=== PATIENT | female | born 1980 ===

== ENCOUNTER 2023-05-19 20:16 | Emergency (ER) | payer OTHER, SELFPAY ==
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
[2023-05-19 20:30] VITALS: BP 148/76; PULSE 110; O2SAT 99
[2023-05-19 20:32] VITALS: BP 113/84; PULSE 124; RESP 18; TEMP 37.6; O2SAT 98; BMI 31.9
--- OUTSIDE RECORDS SUMMARY | 2023-05-20 01:57 | XMS_ITS | Continuity of Care Document ---
Author Name Unknown Organization [facility] Address [address] [place] [address]- Care Team Providers Care Insurance Professional Name Role Phone Carol Martin MD Primary Care Physician Encounter [facility] Date(s): 12/19/22 - 01/18/23 [facility] [address] [place] [phone] Patient Care team information Care Team Personnel Name: Ingrid Peña MA Position: [facility] Outreach Member Role: [employer] Consulting Physician Name: Carol Martin MD Position: [facility] General Pediatrics MD Member Role: PCP Address: Address: [address] [place] [address] [place] [address]- Care Team Related Persons Name: TAMIKO JOLLEY Address: home [address] [place] [address]
--- OUTSIDE RECORDS SUMMARY | 2023-05-20 01:57 | XMS_ITS | Continuity of Care Document ---
Author Name Unknown Organization [facility] ter Address [address] [place] [id number] Care Team Providers Care Aqueduct And Reservoir Keeper Name Role Phone Not on Staff, PCP Primary Care Physician Unavail able Encounter [facility] Date(s): 12/16/22 - 12/21/[address] [address]- Encounter Diagnosis Pneumoperitoneum(Final) - 12/16/22 Acute kidney injury(Final) - 12/16/22 Elevated LFTs(Final) - 12/16/22 Leukocytosis(Final) - 12/16/22 Peritonitis(Final) - 12/16/22 Discharge Disposition: A-Transfer VNA/Home Health Attending Physician: Eyad Allen MD Admitting Physician: Eyad Allen MD Referring Physician: Not on Staff, Referring MD Allergies, Adverse Reactions, Alerts Substance Reaction Severity Status penicillin 1 rash Active 1Tolerated piptazo during admission december 2022 Immunizations Given and Recorded Vaccine Date Status Refusal Reason tetanus/diphtheria/pertussis, acel(Tdap) 04/20/10 Given Medications acetaminophen-HYDROcodone 325 mg-5 mg oral tablet 1-2 tablet, By Mouth, Every 6 hours, PRN for pain, August partial fill BS [id number], # 12 tablet, 0 Refills, Maintenance, 10/08/18 23:25:53 EDT, Tablet, Partial fill upon patient request Start Date: 10/08/18 Status: Ordered Colace sodium 100 mg oral capsule 1 capsule = 100 mg, By Mouth, 2 times a day, PRN Constipation, # 20 capsule, 0 Refills, Maintenance, Capsule Start Date: 04/18/10 Status: Ordered ibuprofen 600 mg oral tablet 1 tablet = 600 mg, By Mouth, 4 times a day, PRN Pain, # 40 tablet, 0 Refills, Maintenance, Tablet Start Date: 04/18/10 Status: Ordered oxyCODONE 5 mg oral tablet 5 mg, 1, tablet, By Mouth, Every 6 hours, PRN, # 15 tablet, Refills 0, Tot. Refills 0, Maintenance,Pain , Severe, 12/21/22 13:17:00 EDT, Route to Pharmacy Electronically, [facility], 160, cm, 12/21/22 4:05:00 EDT, Height, 100.1, kg, ... Start Date: 12/21/22 Status: Ordered oxyCODONE 5 mg oral tablet 5 mg, Tablet, By Mouth, Every 6 hours, PRN for Pain , Moderate, Routine, 12/20/22 10:01:00 EDT Start Date: 12/20/22 Stop Date: 12/22/22 Status: Discontinued pantoprazole 40 mg oral delayed release tablet = 40 mg, By Mouth, Daily, # 90 capsule, 0 Refills, Maintenance, 12/21/22 13:23:00 EDT, EC Tablet, 160, cm, 12/21/22 4:05:00 EDT, Height, 100.1, kg, 12/17/22 3:49:00 EDT, Dry Weight Start Date: 12/21/22 Status: Ordered Problem List Condition Confirmation Course Effective Dates Status H ealth Status Informant Acute pyelonephritis Confirmed Active Hydronephrosis of right kidney Confirmed Active DAYNE (acute kidney injury) Confirmed Active Obese class II Confirmed Active Calculus of right ureter Confirmed Active Results Orders for Microbiology Reports Name Date Urine Culture 12/18/22 Microbiology Reports TEST:Urine Culture STATUS:Auth (Verified) BODY SITE: SOURCE:KIDNEY COLLECTED DATE/TIME:12/18/22 12:11 PM Urine Culture SPECIMEN DESCRIPTION : KIDNEY URINE, RIGHT SPECIAL REQUESTS : NONE CULTURE : 10-50,000 COL/ML STAPHYLOCOCCUS AUREUS. This isolate was identified using Maldi-TOF system These AST results were performed on the VitCellay 2 ID and AST system REPORT STATUS : FINAL 12/20/2022 ORGANISM 10-50,000 COL/ML STAPHYLOCOCCUS AUREUS. This isolate was identified using Maldi-TOF system These AST results were performed on the Vitek 2 ID and AST system METHOD MIN. INHIB. CONC. (MCG/ML) CIPROFLOXACIN SUSCEPTIBLE LEVOFLOXACIN SUSCEPTIBLE NITROFURANTOIN SUSCEPTIBLE OXACILLIN SUSCEPTIBLE RIFAMPIN SUSCEPTIBLE RIFAMPIN RIFAMPIN SHOULD NOT BE USED ALONE FOR ANTIMICROBIAL RIFAMPIN THERAPY. TETRACYCLINE SUSCEPTIBLE TRIMETH/SULFAMETHOX SUSCEPTIBLE VANCOMYCIN SUSCEPTIBLE Radiology Reports * Exam Date Time Procedure Performing Provider Status 12/18/22 11:32 AM IR End of Case Report Au th (Verified) IR End of Case Report * Exam Date Time Procedure Performing Provider Status 12/18/22 11:32 AM IR Nephrostomy, Placement Auth (Verified) Notes: (IR Nephrostomy, Placement) Reason For Exam: RT Hydronephrosis with retained stent;Other: IR Nephrostomy, Placement Patient: ARELIS CEBALLOS Study Date: 12/18/2022 Performing: Claudia Roberts MD Referring: : 1980 Age: 42 Gender: FEMALE Pre-procedure diagnosis and Indication: 42 yo patient with nephrolithiasis and hydroureteronephrosis s/p right ureteral stent placement (01/2019) which remains insitu, large bladder calculus who was transferred from [facility] to [facility] now POD1 s/p ex-lap for repair of perforated duodenal ulcer. IR consulted for right PCN catheter placement based on Urology team recommendations. Exam: Prior to the procedure, the patient was seen and the nature of the procedure explained along with its attendant risks and benefits to the patient. Informed consent for the procedure was obtained from the patient. The patient underwent a pre-sedation assessment. On completion of this it was determined the patient is appropriate for the planned procedure. The patient arrived in IR room 2 for a right nephrostomy insertion. PROCEDURE: The patient was positioned lateral, with the right side up. (Unable to lay prone in the setting of recent abdominal surgery). The patient was secured with arm boards, safety straps. The access site was evaluated with ultrasound and images archived. The site was prepped with chloraprep and draped in the usual sterile fashion. Patient received moderate sedation administered under my direct supervision. Local anesthetic was given and the right kidney was identified using ultrasound. Access to the right kidney via a lower pole calyx was achieved using a DIANNA-NV Introducer kit access needle. Contrast was injected via the access needle, which opacified the right renal collecting system. Incidentally visualized portion of the prior right ureteral stent. An 0.018 guidewire was placed, over which the DIANNA-NV access system was advanced. The wire and inner obturators were removed and contrast was injected, which opacified the right renal collecting system. An 0.035 Amplatz guidewire was placed, the 6 Fr outer catheter was removed, the tract was dilated and an 8.5 FR PCN catheter was inserted. The pigtail was formed and contrast injected to check placement of new tube, which opacified the right renal collecting system. A specimen was obtained for labwork. The catheter was secured to the skin using 2-0 prolene suture and was connected to a drainage bag. The sterile field was maintained throughout the procedure and patient tolerated the procedure well with no complications of the procedure. estimated blood loss was minimal Specimens/samples: urine sample from the right kidney was sent Patient [facility] procedure instructions sent in envelope with the patient Impression: Ultrasound and fluoroscopically-guided placement of a new 8.5 Fr right percutaneous nephrostomy catheter. Catheter care as ordered. Return to floor and resume care as per the primary team. Fluoroscopy time and dose Total Fluoro Time: 1.5 mins Total dose 34 mGy Total DAP 305.52 - ?Gy/m2 Contrast used Contrast used: Omnipaque_300 30 ml's Local Anesthetic Lidocaine 1% 8 ml's SQ Lidocaine 1% 2 ml's SQ Moderate sedation was provided From 12:02:00 to 12:15:00 Moderate Sedation Agent Dose Route Time By Fentanyl 25 mcg IV 12:02:06 LC Versed 0.5 mg IV 12:21:46 Signed By Claudia Roberts MD On 12/18/2022 14:08:12 Claudia Roberts MD Dictated By: Claudia Roberts MD Dictated Date/Time: 12/18/22 11:32 a Reviewed By: Claudia Roberts MD Signed By: Claudia Roberts MD Signed Date/Time: 12/18/22 11:32 am Transcribed By: HOLLI Transcribed Date/Time: 12/18/22 11:32 am * Exam Date Time Procedure Performing Provider Status 12/17/22 12:44 PM Chest Portable Lobo Burdick; Auth ( Verified) Notes: (Chest Portable) Reason For Exam: Shortness of Breath RESULT: Chest Portable Chest Portable Reason: Shortness of Breath; Clinical Question(s): Pneumonia COMPARISON: None. FINDINGS: Enteric tube tip and side-port in the stomach. Patchy bilateral lower lobe airspace disease. IMPRESSION: Enteric tube tip and side-port in the stomach. Patchy bilateral lower lobe airspace disease could be secondary to atelectasis but pneumonia is notexcluded. WSN: [id number] Ordering Physician: Jennifer Shirley Dictated By: Anirudh Lee MD Dictated Date/Time: 12/17/22 12:56 p Reviewed By: Anirudh Lee MD Signed By: Anirudh Lee MD Signed Date/Time: 12/17/22 12:56 pm Transcribed By: AL Transcribed Date/Time: 12/17/22 12:55 pm Vital Signs Most recent to oldest [Reference Range]: 1 2 3 Height 160 cm (12/21/22 4:04 AM) 160 cm (12/20/22 8:18 PM) 160 cm (12/20/22 3:42 PM) Weight 94.1 kg (12/21/22 6:28 AM) 103.8 kg (12/18/22 4:00 AM) 100.6 kg (12/18/22 2:26 AM) Oxygen Saturation [94-100 %] 98 % (12/21/22 11:00 AM) 99 % (12/21/22 8:00 AM) 99 % (12/21/22 4:04 AM) Pulse Rate [55-90 bpm] 86 bpm (12/21/22 11:00 AM) 82 bpm (12/21/22 8:00 AM) 76 bpm (12/21/22 4:04 AM) Body Mass Index [18.5-24.99 kg/m2] 39.1 kg/m2 *>HHI* (12/17/22 3:42 AM) Blood Pressure [90-138/55-84 mm Hg] 109/62mm Hg (12/21/22 11:00 AM) 116/80mm Hg (12/21/22 8:00 AM) 120/70mm Hg (12/21/22 4:04 AM) Respiratory Rate [16-30 br/min] 18 br/min (12/21/22 11:02 AM) 18 br/min (12/21/22 8:00 AM) 18 br/min (12/21/22 5:24 AM) Temperature [96.8-100.4 DegF] 98.0 DegF (12/21/22 11:00 AM) 97.7 DegF (12/21/22 8:00 AM) 97.6 DegF (12/21/22 4:04 AM) Liters per Minute 3 L/min (12/18/22 8:00 PM) 3 L/min (12/18/22 6:00 PM) 3 L/min (12/18/22 2:00 PM) Mode of Delivery (Oxygen) Room air (12/21/22 11:00 AM) Room air (12/21/22 8:00 AM) Room air (12/21/22 4:04 AM) Blood pressure sites Arm, left (12/21/22 11:00 AM) Arm, left (12/21/22 8:00 AM) Arm, right (12/21/22 4:04 AM) Temperature Route Oral (12/21/22 11:00 AM) Oral (12/21/22 8:00 AM) Oral (12/21/22 4:04 AM) Dry Weight 100.1 kg (12/17/22 3:42 AM) 93 kg (12/16/22 10:26 PM) Weight Obtained Via Bed scale (12/21/22 6:28 AM) Bed scale (12/18/22 4:00 AM) Bed scale (12/18/22 2:26 AM) Dry Weight Obtained Via Bed scale (12/17/22 3:42 AM) Social History Social History Type Response Smoking Status 10 or more cigarette s (1/2 pack or more)/day in last 30 days entered on: 12/16/22 Sex Admission evaluation note * Meka GREEN, Laci Ayala: PERFORM, MODIFY Event Display: Admission Note Authored Date: [id number] Patient: ??ARELIS CEBALLOS ? Age:??42 Years?Sex:??Female?:??1980?? Chief Complaint Transfer from [place]. R sided abd pain. Expect attached. Surgical consult. History of Present Illness Arelis is a 42-year-old female who denies any significant past medical history??who presented as a transfer from [facility] with concern for a perforated duodenum.?? She describes acuteonset abdominal pain beginning the morning of??12/16.?? On presentation to the ED, labs were significant for leukocytosis to 13,800, metabolic acidosis with a bicarb of 16 and lactate of 2.6, acute kidney injury with a creatinine of 1.9 (increased from a baseline of 0.9), and elevated alkaline phosphatase at 118 and elevated lipase at 300. ??A CT scan of the abdomen and pelvis with IV contrast wasobtained which revealed pneumoperitoneum, likely secondary to a perforated duodenal ulcer, associated with abdominopelvic ascites. ??Additionally, there is moderate right hydroureteronephrosis with associated urothelial thickening and enhancement, a delayed right nephrogram, a 6.7 cm bladder calculus, and moderate right hydroureteronephrosis. ??For the findings of pneumoperitoneum, an acute care s urgery consultation was requested. ?? On evaluation, she describes 50 out of 10 abdominal pain,??but denies any other issues.. ??Want something to drink.?Denies nausea, vomiting??fever, chills, chest pain. ??She has mild shortness of breath that??she??describes as being secondary to pain. ??She was able to have a bowel movementsince the onset of??pain that was nonbloody. ??Has been able to void. Review of Systems Negative except as noted above in HPI. Physical Exam Vitals & Measurements RR:??20?? Heart rate 115 Respiratory rate 16 Blood pressure 110/75 Oxygen saturation 96% in room air Temperature 97.5 F, oral General:??Awake,??alert, in??significant pain/distress Mental Status:??Oriented to person, place and time. Normal affect. Head:??Normocephalic. Eyes:??Extraocular muscles intact. Ear, Nose and Throat:??Oropharynx clear, mucous membranes moist. Ears and nose without masses, lesions or deformities.?? Very poor dentition Neck:??Supple, Full range of motion. Respiratory:??Nonlabored breathing in room air Cardiovascular:??Tachycardic, regular rhythm Gastrointestinal:??Abdomen soft, nondistended, significantly tender to palpation in the epigastrium??with involuntary guarding,??diffuse tenderness to palpation about the remainder of the abdomen especially on the right side. Neurologic:??No focal neurological deficits. Moves all extremities spontaneously. Sensation intact bilaterally. Skin:??No rashes or lesions. No petechiae or purpura. No edema. Musculoskeletal:??No cyanosis or clubbing. No gross deformities. Normal range of motion.?? Assessment/Plan Arelis is a 42-year-old female who denies any significant past medical history??who presented as a transfer from [facility] with concern for a perforated duodenum.?This is supported by history of acute onset of epigastric??abdominal pain beginning the morning of??12/16??not associated with nausea??or vomiting.?? On presentation to the ED, labs were significant for leukocytosis to 13,800, metabolic acidosis with a bicarb of 16 and lactate of 2.6, acute kidney injury with a creatinine of 1.9 (increased from a baseline of 0.9), and elevated alkaline phosphatase at 118 and elevated lipase at 300. ??A CT scan of the abdomen and pelvis with IV contrast was obtained which revealed p neumoperitoneum, likely secondary to a perforated duodenal ulcer, associated with abdominopelvic ascites. ??Additionally, there is moderate right hydroureteronephrosis with associated urothelial thickening and enhancement, a delayed right nephrogram, a 6.7 cm bladder calculus. ??Lastly, on physicalexam she was tachycardic and peritoneal??with involuntary guarding in the epigastrium. ??For these findings, we will admit to the acute care surgery service with plans for??emergent??exploratory laparotomy. ?? Plan: Admit to [facility] We will plan to proceed to the operating room for emergent exploratory laparotomy, possible bowel resection, possible Billroth reconstruction,??possible open abdomen.?? She provided consent??at bedside for the procedure. N.p.o. IV fluids Vancomycin and Zosyn Pain and nausea control??via IV only Renal and urology consultations for??right hydroureteronephrosis, UTI,??DAYNE, delayed right nephrogram, and 6.7 cm bladder calculus, appreciate recommendations ?Seen and discussed with ??Alouidor ?Page ACS/EGS #[id number] with questions or concerns?? Problem List/Past Medical History Ongoing Acute pyelonephritis DAYNE (acute kidney injury) Calculus of right ureter Hydronephrosis of right kidney Obese class II Kidney stones s/p lithotripsy Procedure/Surgical History 3 deliveries Tonsillectomy Tubal ligation Lithotripsy for kidney stones Home Medications Acetaminophen / Hydrocodone: 1-2 tablet, By Mouth, Every 6 hours, PRN (for pain), May partial fillBS [id number] Docusate: 100 mg = 1 capsule, By Mouth, 2 times a day, PRN (Constipation) Ibuprofen: 600 mg = 1 tablet, By Mouth, 4 times a day, PRN (Pain) Oxycodone: 10 mg = 2 tablet, By Mouth, Every 6 hours, PRN (Pain) Allergies penicillin??(rash) Social History Alcohol Use: Never. Electronic Cigarette/Vaping Electronic Cigarette Use: Never. Substance Abuse Type: Marijuana. Other: once in a while. Tobacco Use: 10 or more cigarettes (1/2 pack or more)/day in last 30 days. Has roughly 5 cigarettes/day Denies alcohol use Denies illicit drug use Unemployed Lives with??a friend at home Family History No family history recorded. She does not know if??her family is a history of bleeding or clotting disorders Radiology ? Result type:?CT Abd/Pelvis W/ IV Contrast Only Result date:?December 16, 2022 16:01 EDT Result status:?Auth (Verified) Result title:?CT Abd/Pelvis W/ IV Contrast Only Performed by:?Ramin Stringer MD on December 16, 2022 17:02 EDT Verified by:?Issac Haines MD on December 16, 2022 17:07 EDT Encounter info:?[id number], [facility], Emergency, 12/16/2022 -? * Final Report * ?? Reason For Exam R sided abdominal pain;Other: ?? RESULT: CT Abd/Pelvis W/ IV Contrast Only CT Abd/Pelvis W/ IV Contrast Only? Hx of Present Illness: right flank pain; Reason: Other:; R sided abdominal pain; Clinical Question(s): Appendicitis; Order Comment: Patient unable to tolerate PO contrast. ?? TECHNIQUE: Spiral CT through the abdomen and pelvis with IV contrast formatted in 3 planes. 100 cc of Omnipaque 300 was administered intravenously. This study was performed without oral contrast. Weight-based protocol using automatic tube modulation was used to optimize exposure parameters.? CTDIvol Body: 18.25 mGy, ??DLP Body: 1035 mGy*cm. ? COMPARISON: CT 01/08/2019, 10/08/2018 ?? FINDINGS:? Bat Lathe Operator View Findings, Lines and Tubes: Right ureteral stent in place. ?? Visualized Chest: Lung bases are blurred by motion, but are grossly clear. No pleural effusion. Theheart is normal in size. No pericardial effusion. ?? Diaphragm: Normal. ?? Liver: Normal. ?? Gallbladder: No CT evidence of gallbladder pathology. ?? Bile ducts: No biliary ductal dilation. ?? Spleen: Normal. ?? Pancreas: Normal. ?? Adrenal glands: 2.5 cm right adrenal adenoma, increased from 1.8 cm in 2019. Normal left adrenal gland. ?? Kidneys and ureters:?? * ??The right kidney is mildly atrophic, with a delayed nephrogram. There is moderate hydroureteronephrosis. A right ureteral stent is in place. The distal ureter measures up to 14 mm in caliber. There is urothelial thickening and enhancement of the renal pelvis and throughout the right ureter. Moderate right perinephric and periureteral fat stranding. 1.0 cm exophytic cyst in interpolar right kidney. Punctate nonobstructing calyceal calculi at the lower pole of the right kidney measuring up to3 mm. * ??The left kidney is normal in size and enhancement. There is mild left hydroureteronephrosis. The left ureter measures up to 14 mm in caliber. Exophytic cyst at the lower pole of the left kidney measuring 4.0 cm. 3 mm nonobstructing calyceal calculus at the lower pole.? Bladder: The bladder is decompressed. There is a large bladder calculus measuring up to 6.7 cm. There is diffuse wall thickening of the bladder. ?? Reproductive organs: Unremarkable. ?? Stomach, small bowel, and large bowel: The stomach is normal. Moderate wall thickening is present at the first and second portions of the duodenum, with surrounding fat stranding and trace adjacent free air. A fluid collection is seen along the lateral aspect of the second portion of the duodenum measuring up to 2.1 cm (coronal 47). The small and large bowel are normal in caliber without evidenceof obstruction. ?? Appendix: Normal. ?? Peritoneum and retroperitoneum: Small amount of pneumoperitoneum in the upper abdomen. Foci of gas are present abutting the proximal duodenum. Small volume of abdominopelvic ascites. ?? Lymph nodes: Prominent subcentimeter portacaval lymph nodes. Periaortic lymph nodes measuring up to10 mm short axis. Portacaval lymph nodes measuring bilateral internal iliac chain lymph nodes measuring 11 mm short axis (axial 117). ?? Blood vessels: Normal. No aneurysm. No evidence of venous thrombosis. ?? Abdominal and pelvic wall: Unremarkable. ?? Bones: No acute abnormality. ?? IMPRESSION:? 1. ??Mild pneumoperitoneum, most likely secondary to perforated duodenal ulcer. 2. ??Small volume of abdominopelvic ascites. 3. ??Moderate right hydroureteronephrosis with associated urothelial thickening and enhancement, consistent with UTI. A right ureteral stent is in place. 4. ??Delayed right nephrogram, suggestive of impaired renal function. 5. ??Inflammatory changes of the bladder consistent with cystitis. 6.7 cm bladder calculus. 6. ??Moderate right hydroureteronephrosis. 7. ??Reactive portal, para-aortic and iliac adenopathy. 8. ??Right adrenal adenoma is mildly increased from prior. Lab Results Labs Last 24 Hours No qualifying data available. EKG study * Event Display: ECG 12-Lead Authored Date: Please click on pdf link to open report * Event Display: ECG 12-Lead Authored Date: Ventricular Rate: 96 BPM Atrial Rate: 96 BPM P-R Interval: 144 ms QRS Duration: 72 ms Q-T Interval: 342 ms QTC Calculation(Bazett): 432 ms P Calypso: 12 degrees R Calypso: 40 degrees T Calypso: 44 degrees Normal sinus rhythm Normal ECG No previous ECGs available Confirmed by JASS WHEELER MD ([id number]) on 12/17/2022 9:19:19 AM [place]: JASS WHEELER MD Cardiology * Event Display: Cardiac Rhythm Strips Authored Date: Hospital Progress note * Britney Jensen RN: PERFORM, SIGN, VERIFY Event Display: Progress Note Hospital Authored Date: Patient: ARELIS CEBALLOS Age: 42 years Sex: Female : 1980 Associated Diagnoses: None Author: Britney Jensen RN Findings Narrative/Incidental Pt discahrged home with family, discharge instructions given.. * Melvi Scott MD: PERFORM, SIGN, VERIFY Event Display: Progress Note Hospital Authored Date: Patient: ARELIS CEBALLOS Age: 42 years Sex: Female : 1980 Associated Diagnoses: None Author: Melvi Scott MD Subjective: No acute events overnight. Continues to pass flatus and had two bowel movements, semi-formed without blood. Continues to void without issue and right nephrostomy tube functioning appropriately. Tolerated clears without nausea or vomiting. Ambulated yesterday. Denies fever, chills, chestpain, shortness of breath, nausea, vomiting. Review of Systems Negative except as stated above. Physical Examination Temperature 97.7 (08:06) Systolic Blood Pressure 116 (08:06) Diastolic Blood Pressure 80 (08:06) Pulse 82 (08:06) SpO2 99 (08:06) Respiratory Rate 18 (08:06) General: no acute distress, awake, alert HEENT: NCAT, EOM grossly intact, trachea midline. CV: RRR Pulm: nonlabored breathing on 2LNC Abd: soft, nontender, nondistended, no rebound or guarding, midline DSD c/d/i, R PCN draining CYU Ext: moving all extremities spontaneously, no lower extremity edema Skin: no rash on limited exam, warm and well-perfused Neuro: answers questions appropriately Results Review 7 Day Results Results Laboratory : LABORATORY 12/21/2022 1:35 EDT WBC 5.4 k/mm3 RBC 3.53 m/mm3 L Hgb 9.6 Gm/dL L Hct 30.8 % L MCV 87.3 femtoliters MCH 27.2 pg MCHC 31.2 g/dL L Platelet Count 397 k/mm3 RDW-SD 57.0 femtoliters H MPV 9.1 femtoliters L Nucleated RBC (Automated) 0.0 #/100 WBC'S Abs. NRBC 0.0 k/mm3 Abs. Neut 2.4 k/mm3 Abs. Lymph 2.1 k/mm3 Abs. Bacon 0.4 k/mm3 Abs. Eo 0.4 k/mm3 Abs. Baso 0.0 k/mm3 Neut % 44.4 % Lymph % 38.7 % Bacon % 7.1 % Eos % 7.9 % H Baso % 0.6 % Imm Gran 1.3 % Abs. Imm Gran 0.1 k/mm3 Sodium 137 mmol/L Potassium 3.4 mmol/L L Chloride 109 mmol/L H Bicarbonate Level 17 mmol/L L Anion Gap 11 Glucose Level 91 mg/dL BUN 8 mg/dL Creatinine-Blood 1.5 mg/dL H Estimated GFR Creatinine 45 ML/MIN/1.73 M2 Calcium, Ionized pH Corrected 1.63 mmol/L C Phosphorus 2.0 mg/dL L Magnesium 1.9 mg/dL Impression and Plan Arelis is a 42-year-old female with PMH significant for kidney stones s/p right ureteral stent (2019) who presented as a transfer from [facility] with 1 day of epigastric abdominal pain, DAYNE, and CT A/P findings of pneumoperitoneum and abdominal free fluid likely from upper GI perforation, as well as right hydronephrosis and a large bladder stone. She was found to have involuntary guarding on exam and was taken emergently to the operating room, where she underwent exploratory laparotomy, primary repair of 1cm perforated pre-pyloric ulcer with omental buttress (Alouidor 12/17), found to have 400cc of purulence/bile in the abdomen. She then underwent right percutaneous nephrostomy placement with IR on 12/18 for hydroureteronephrosis. She is recovering well post-operatively. Garrison removed, right PCN remains in place. Voiding without issue. NGT removed POD3 and tolerated a clearliquid diet. Return of full bowel function on PDO4. Will advance to a regular diet today. PLAN Advance to regular diet Continue Vanc/Zosyn for total 4 day post-op course - ends 12/22 PO PPI Appreciate urology consultation for right hydronephrosis with retained stent - Please notify officeupon discharge as pt will require close OP FU Appreciate nephrology follow up for DAYNE & further workup F/u H pylori stool Ag F/u gastric biopsies Multimodal pain control Antiemetics as needed Home medications as indicated Daily labs; replete PRN DVT PPx: SQH OOB/ambulate Please page Emergency General Surgery with any questions or concerns [id number]. Discussed with attending physician Dr. Lynch * Dionisio GREEN, Maite: MODIFY, PERFORM Event Display: Progress Note Hospital Authored Date: [id number] Patient: ??LIN, ARELIS ? Age:??42 Years?Sex:??Female?:??1980?? Attending:??Alejandro GREEN, Eyad Admission Date: 12/16/2022 ?? Subjective Patient seen and examined, events notes. ?? I??good urine output ? Objective Vital Signs (last 24 hrs) ?Last Charted Heart Rate Peripheral?H??104bpm ??(DEC 20 20:18) Resp Rate?18 br/min ??(SEP 15 20:18) SBP?133 mm Hg ??(SEP 15 20:18) DBP?83 mm Hg ??(SEP 15 20:18) SpO2?100 % ??(SEP 15 20:18) Height?160 cm ??(SEP 15 20:18) Intake?? Output?? Oral Fluids: 250 mL (18:00) Urine Voided: 200 mL (22:00) Urine Catheter: 300 mL (10:00) R Nephrostomy: 100 mL (22:00) Stool Frequency: 0 (18:00) NG Output: 0 mL (05:00) ? Intake/Output?? 12/16 20:06 12/20 07:00 12/19 07:00 12/18 07:00 12/17 07:00 ?? 12/20 23:19 12/20 23:19 12/20 06:59 12/19 06:59 12/18 06:59 Intake ?47022.8 ?810.0 ? 2445.0 ? 3818.8 ? 3760 Output ?21115 ? 1900 ? 4285 ? 4255 ? 3260 Net Total ?-2280.2 ?-1090.0 ?-1840.0 ? -436.2 ?500 ? Physical Exam General: NAD, AAOx4 Cardio: normal S1 and S2, no MRG, RRR Resp: Clear to auscultation bilaterally Abdo:??NT, ND, BS+ve Extremities: No peripheral edema bilaterally Skin: No rashes or other abnormalities Dialysis Access: ?? BLOOD COUNT & DIFF WBC 6.6 k/mm3 ()?? 12/20/2022 05:42 RBC 3.62 m/mm3 (Low)?? 12/20/2022 05:42 Hgb 9.9 Gm/dL (Low)?? 12/20/2022 05:42 Hct 32.0 % (Low)?? 12/20/2022 05:42 MCV 88.4 femtoliters ()?? 12/20/2022 05:42 MCH 27.3 pg ()?? 12/20/2022 05:42 MCHC 30.9 g/dL (Low)?? 12/20/2022 05:42 Platelet Count 378 k/mm3 ()?? 12/20/2022 05:42 RDW-SD 58.4 femtoliters (High)?? 12/20/2022 05:42 MPV 9.0 femtoliters (Low)?? 12/20/2022 05:42 Nucleated RBC (Automated) 0.0 #/100 WBC'S ()?? 12/20/2022 05:42 Abs. NRBC 0.0 k/mm3 ()?? 12/20/2022 05:42 Abs. Neut 4.0 k/mm3 ()?? 12/20/2022 05:42 Abs. Lymph 1.7 k/mm3 ()?? 12/20/2022 05:42 Abs. Bacon 0.3 k/mm3 (Low)?? 12/20/2022 05:42 Abs. Eo 0.5 k/mm3 (High)?? 12/20/2022 05:42 Abs. Baso 0.0 k/mm3 ()?? 12/20/2022 05:42 Neut % 60.8 % ()?? 12/20/2022 05:42 Lymph % 25.1 % ()?? 12/20/2022 05:42 Bacon % 4.7 % ()?? 12/20/2022 05:42 Eos % 7.6 % (High)?? 12/20/2022 05:42 Baso % 0.6 % ()?? 12/20/2022 05:42 Imm Gran 1.2 % ()?? 12/20/2022 05:42 Abs. Imm Gran 0.1 k/mm3 ()?? 12/20/2022 05:42 ?? CHEM GENERAL Sodium 138 mmol/L ()?? 12/20/2022 05:42 Potassium 3.8 mmol/L ()?? 12/20/2022 05:42 Chloride 109 mmol/L (High)?? 12/20/2022 05:42 Bicarbonate Level 18 mmol/L (Low)?? 12/20/2022 05:42 Anion Gap 11 ()?? 12/20/2022 05:42 Glucose Level 68 mg/dL (Low)?? 12/20/2022 05:42 BUN 12 mg/dL ()?? 12/20/2022 05:42 Creatinine-Blood 1.4 mg/dL (High)?? 12/20/2022 05:42 Estimated GFR Creatinine 50 ML/MIN/1.73 M2 ()?? 12/20/2022 05:42 Calcium, Ionized pH Corrected 1.65 mmol/L (Critical)?? 12/20/2022 05:42 Phosphorus 2.2 mg/dL (Low)?? 12/20/2022 05:42 Magnesium 1.9 mg/dL ()?? 12/20/2022 05:42 ?? URINE OTHER Est Creatinine Clearance 44.17 mL/min ()?? 12/20/2022 06:29 ?? No qualifying data available ? Assessment/Plan ?Arelis is a 42-year-old woman with a medical history of nephrolithiasis and hydroureteronephrosis status post right ureteral stent placement (01/2019) who presents to [facility] as atransfer from [facility] for management of perforated duodenal ulcer. Nephrology consulted for management of acute kidney injury. ? Acute kidney injury, stage 2 Hyperkalemia, resolved Hyperchloremia NAGMA ??R hydroureteronephrosis s/p percutaneous nephrostomy ??Serum creatinine baseline appears to be 0.9 although her last reported serum creatinine was 1.4 in 2019, could have underlying CKD. Acute kidney injury likely secondary to poor oral intake, she didhave an episode of hypotension 80/54 mmHg. She was oliguric yesterday with a urine output of 200 ccsince admission, less than 24h. She does report having diarrhea for 2 days which led to GI bicarbonate loss explaining her NAGMA. Obstructive component could also contribute to her DAYNE although she has unilateral hydroureteronephrosis. Urology team was also consulted. Patient received IV contrast yesterday. FENa is 2%. She has proteinuria of 1.39 which is tubular range proteinuria in setting of DAYNE. S/p R PCN. Her NAGMA is??secondary to??decreased H+ secretion??in setting of obstruction, which should improve now that patient has a R PCN. ? Recommendations: ??-??Further management of bladder calculus per urology. ??-??Encourage oral hydration. ??- Monitor R nephrostomy output. ??- Avoid NSAIDs and IV contrast if possible. ??- Continue to monitor electrolytes and renal function. ?? Normocytic anemia Hypercalcemia Recurrent nephrolithiasis Vitamin D deficiency Patient has a normocytic anemia with hemoglobin of 10.1, MCV of 89.3, in 2019 her hemoglobin was within reference range. She has hyperglycemia with an elevated ionized calcium of 1.55, given her recurrent nephrolithiasis this raises concern for primary hyperparathyroidism, and with the anemia this could be concerning for multiple myeloma. Ionized calcium could also be elevated in setting of her acidemia. Patient has elevated levels of PTH suggesting primary hyperparathyroidism.? Recommendations: ??- Pending SPEP, UPEP and serum IF. ??- Patient will benefit from evaluation of primary hyperparathyroidism in outpatient. ?? Discussed with ??Holland ?? Thank you for allowing us to participate in care of this patient. Renal team will continue to follow. Please do not hesitate to contact with any questions/concerns should they arise. ?? Maite Nichole MD Nephrology??fellow PGY-5 ?? Available by [employer].?? Please note that this document was generated with the assistance of??DRAGON?voice recognition technology, and may contain vocabulary/syntax errors.?Please do not hesitate to contact me in case of any questions or concerns. ?? Consult note * Mary Jane ZUNIGA, Louis Garcia: PERFORM Event Display: Consultation Note Authored Date: Patient: ??ARELIS CEBALLOS ? Age:??42 Years?Sex:??Female?:??1980?? Chief Complaint/Reason for Consultation Transfer from [place]. R sided abd pain. Expect attached. Surgical consult. History of Present Illness LOS: 0 PCP: N/A Consulting Physician: Eyad Allen MD Attending Physician: Miguel Angel Joaquin MD Reason For Consult: RT hydronephrosis, Large bladder stone ?? This is a 42-year-old female transferred from [facility] for perforated duodenum. ??She has a past medical history of right nephrolithiasis with stent placement (2019??with Dr. Akhtar).??She is now POD 0 for exploratory laparotomy with primary repair of prepyloric ulcer and omental buttress buttress. ??CT scan on admission showed atrophic right kidney, with delayed nephrogram with moderate hydroureter nephrosis, a right ureteral stent placed, and a 6.7 cm bladder calculus. ??WBCs14.5, creatinine 1.7, UA positive for infection. ??She is on Zosyn and vancomycin. ??At bedside, she continues to have abdominal discomfort status post her procedure. ??She stated the last time she had a stent placed was in [address] Akhtar. ??She did not follow-up with their office, and her stent has not been exchanged or removed since 2019. Review of Systems Constitutional:??No weight loss, fever, chills, weakness or fatigue. Respiratory:??No shortness of breath, cough or sputum production. Cardiovascular:??No chest pain, chest pressure or chest discomfort. No palpitations or pedal edema. Gastrointestinal: abdominal pain.??No anorexia, nausea, vomiting or diarrhea. No blood in stool. Genitourinary:??No burning micturition, hematuria, discharge,??urinary frequency or incontinence. Neurologic:??No headache, dizziness, syncope, bladder sensation loss. Objective Measurements?? Height: 160 cm (12/17/22) Weight: 98.9 kg (12/17/22) Dry Weight: 100.1 kg (12/17/22) Body Mass Index:??39.1 kg/m2??Critical (12/17/22) ? Vital Signs?? Temperature: 97.6 DegF (12/17/22 10:00:00) Temperature Route: Oral (12/17/22 10:00:00) Pulse Rate: 90 bpm (12/17/22 10:00:00) Heart Rate Monitored:??94 bpm??High (12/17/22 04:34:00) Respiratory Rate: 20 br/min (12/17/22 10:40:00) Systolic Blood Pressure: 120 mm Hg (12/17/22 10:00:00) Diastolic Blood Pressure:??88 mm Hg??High (12/17/22 10:00:00) Blood pressure sites: Arm, right (12/17/22 10:00:00) Mean Arterial Pressure: 84 mm Hg (12/17/22 03:42:00) Pulse Pressure: 32 mm Hg (12/17/22 10:00:00) Oxygen Saturation:??93 %??Low (12/17/22 10:00:00) Liters per Minute: 2 L/min (12/17/22 03:00:00) Mode of Delivery (Oxygen): Room air (12/17/22 10:00:00) Early Warning Score: 4 (12/17/22 10:43:34) ? Pain Scores 1 - 10 Pain Scale Score: 8 (04:00) ? Intake/Output? 12/16 20:06 12/17 07:00 12/16 07:00 12/15 07:00 12/14 07:00 ?? 12/17 10:50 12/17 10:50 12/17 06:59 12/16 06:59 12/15 06:59 Intake ? 1366 ?560 ?806 ?0 ?0 Output ?930 ?710 ?220 ?0 ?0 Net Total ?436 ? -150 ?586 ?0 ?0 ? Basic ADLs Feeding Assistance: NPO (12/17/22) ? Physical Exam Constitutional: Alert, in no distress. Mental Status: Oriented to person, place and time. Respiratory: Equal and unlabored respiratory effort. Gastrointestinal: NG tube in place Genitourinary: No costovertebral angle tenderness. Assessment/Plan Acute kidney injury (N17.9):?? Hydronephrosis, right (N13.30):??This is a 42-year-old female transferred from [facility] for perforated duodenum. She has a past medical history of right nephrolithiasis with stent placement ([address] Hermilo Corrigan),??seen in consult for??right hydronephrosis, and large bladder stone.??In regards to her large bladder stone,??it is nonobstructing,??and her bladder remains decompressed. Considering her infection, she??will have to have this evaluated??and removed in the outpatient setting once her infection has been treated.??She has a retained??right ureteral stent from 2019, which is significantly overdue, as they are at most supposed to be retained for 6 months. We discussed the risks of this, being recurrent infections, pain, adhesion,??atrophy, and necrosis??of the kidney. Pt endorsed she did not follow up with [facility] due to transportation. At this point, consideringthe time of her RT stent, it would be very difficult to remove??and or exchange the RT stent.??We are recommending a RT PCN to adequate drain and preserve the RT kidney function. I have alerted Estela Ortiz PA-C at [facility] who will arrange urgent follow up. Primary team should alert their office before discharge.??Her abx should be continued, she should be made NPO for a RT PCN. ?? Recommendations: ???Right PCN. ??? N.p.o.??after midnight. ?Continue antibiotics per primary team. ?Outpatient follow-up with??urology group of [facility]. Please alert their office upon discharge. ?? This patient was seen and examined with??Dr. Joaquin.??In total, chart review, discussion with patient, physical exam,??planning took approximately 90 minutes Histories Allergies Allergies ?(Active and Proposed Allergies Only) penicillin? (Severity: Unknown severity, Onset: Unknown) ?Reactions: rash ? Past Medical History/Problem List Active Problems??(5) Acute pyelonephritis DAYNE (acute kidney injury) Calculus of right ureter Hydronephrosis of right kidney Obese class II ? Past Surgical History No surgery history documented. ? Social History Alcohol Details:??Use: Never. Details:??Use: Never. Substance Abuse Details:??Type: Marijuana. ??Other: once in a while. Tobacco Details:??Use: 10 or more cigarettes (1/2 pack or more)/day in last 30 days. Details:??Use: 10 or more cigarettes (1/2 pack or more)/day in last 30 days. Electronic Cigarette/Vaping Details:??Electronic Cigarette Use: Never. ? Family History No family history recorded. ? Medications Home Medications Acetaminophen / Hydrocodone (acetaminophen-HYDROcodone 325 mg-5 mg oral tablet)?1-2 tablet?ByMouth?Every 6 hours?as needed?for pain?May partial fillBS [id number] Docusate (Colace sodium 100 mg oral capsule)?1?capsule?100?Milligram?By Mouth?2 times a day?as needed?Constipation Ibuprofen (ibuprofen 600 mg oral tablet)?1?tab(s)?600?Milligram?By Mouth?4 times a day?as needed?Pain Oxycodone (oxycodone 5 mg oral tablet)?2?tab(s)?10?Milligram?By Mouth?Every 6 hours?as needed?Pain ? Results Recent Labs BLOOD BANK Blood Type O Positive ()?? 12/16/2022 20:09 Antibody Screen Negative ()?? 12/16/2022 20:09 ?? BLOOD COUNT & DIFF WBC 14.5 k/mm3 (High)?? 12/17/2022 06:03 RBC 3.50 m/mm3 (Low)?? 12/17/2022 06:03 Hgb 9.6 Gm/dL (Low)?? 12/17/2022 06:03 Hct 31.9 % (Low)?? 12/17/2022 06:03 MCV 91.1 femtoliters ()?? 12/17/2022 06:03 MCH 27.4 pg ()?? 12/17/2022 06:03 MCHC 30.1 g/dL (Low)?? 12/17/2022 06:03 Platelet Count 364 k/mm3 ()?? 12/17/2022 06:03 RDW-SD 61.5 femtoliters (High)?? 12/17/2022 06:03 MPV 9.6 femtoliters ()?? 12/17/2022 06:03 Nucleated RBC (Automated) 0.0 #/100 WBC'S ()?? 12/17/2022 06:03 Abs. NRBC 0.0 k/mm3 ()?? 12/17/2022 06:03 Abs. Neut 13.0 k/mm3 (High)?? 12/17/2022 06:03 Abs. Lymph 0.8 k/mm3 ()?? 12/17/2022 06:03 Abs. Bacon 0.5 k/mm3 ()?? 12/17/2022 06:03 Abs. Eo 0.0 k/mm3 ()?? 12/17/2022 06:03 Abs. Baso 0.0 k/mm3 ()?? 12/17/2022 06:03 Neut % 89.8 % (High)?? 12/17/2022 06:03 Lymph % 5.5 % (Low)?? 12/17/2022 06:03 Bacon % 3.7 % (Low)?? 12/17/2022 06:03 Eos % 0.0 % ()?? 12/17/2022 06:03 Baso % 0.3 % ()?? 12/17/2022 06:03 RBC Morphology MODERATE ()?? 12/17/2022 06:03 WBC Morphology FEW ()?? 12/17/2022 06:03 Imm Gran 0.7 % ()?? 12/17/2022 06:03 Abs. Imm Gran 0.1 k/mm3 ()?? 12/17/2022 06:03 ?? CHEM GENERAL Sodium 141 mmol/L ()?? 12/17/2022 06:03 Potassium 5.5 mmol/L (High)?? 12/17/2022 06:03 Chloride 114 mmol/L (High)?? 12/17/2022 06:03 Bicarbonate Level 20 mmol/L (Low)?? 12/17/2022 06:03 Anion Gap 7 ()?? 12/17/2022 06:03 Glucose Level 94 mg/dL ()?? 12/17/2022 06:03 BUN 24 mg/dL (High)?? 12/17/2022 06:03 Creatinine-Blood 1.7 mg/dL (High)?? 12/17/2022 06:03 Estimated GFR Creatinine 38 ML/MIN/1.73 M2 ()?? 12/17/2022 06:03 Calcium, Ionized pH Corrected 1.55 mmol/L (Critical)?? 12/17/2022 06:03 Phosphorus 3.0 mg/dL ()?? 12/17/2022 06:03 Magnesium 1.9 mg/dL ()?? 12/17/2022 06:03 Alkaline Phosphatase 118 units/L (High)?? 12/16/2022 14:54 Lipase 300 units/L (High)?? 12/16/2022 14:54 AST (SGOT) 9 units/L ()?? 12/16/2022 14:54 ALT (SGPT) 6 units/L ()?? 12/16/2022 14:54 Bilirubin, Total 0.2 mg/dL ()?? 12/16/2022 14:54 Lactate 1.2 mmol/L ()?? 12/16/2022 18:27 ?? COAG INR 1.1 ()?? 12/16/2022 20:22 Protime (PT) 11.1 seconds ()?? 12/16/2022 20:22 APTT 29.1 seconds ()?? 12/16/2022 20:22 ?? ENDOCRINE/TUMOR MARKER Beta HCG-serum, Qual INDETERMINATE ()?? 12/16/2022 14:54 Blood 3 mIU/mL ()?? 12/16/2022 14:54 ?? HEME OTHER Hold Lavender Top SPECIMEN DISCARDED AFTER 24 HOURS. ()?? 12/16/2022 14:54 Hold Blue Top SPECIMEN DISCARDED AFTER 4 HOURS. ()?? 12/16/2022 14:54 ?? MISC. CHEMISTRY Hold Green Top SPECIMEN DISCARDED AFTER 1 WEEK ()?? 12/16/2022 18:27 ?? UA/URINALYSIS Appear/Color, Urine YELLOW ()?? 12/16/2022 17:49 Clarity MARKED TURBIDITY (Abnormal)?? 12/16/2022 17:49 Specific [place], Urine 1.020 ()?? 12/16/2022 17:49 pH, Urine 8.0 ()?? 12/16/2022 17:49 Albumin, Urine 2+ (Abnormal)?? 12/16/2022 17:49 Glucose, Urine NEGATIVE ()?? 12/16/2022 17:49 Ketones, Urine NEGATIVE ()?? 12/16/2022 17:49 Bilirubin, Urine NEGATIVE ()?? 12/16/2022 17:49 Hemoglobin, Urine 3+ (Abnormal)?? 12/16/2022 17:49 Nitrite, Urine NEGATIVE ()?? 12/16/2022 17:49 Leukocyte, Urine 3+ (Abnormal)?? 12/16/2022 17:49 Urobilinogen NORMAL mg/dL ()?? 12/16/2022 17:49 WBC's, Urine >182 /HPF (High)?? 12/16/2022 17:49 RBC's, Urine 35 /HPF (High)?? 12/16/2022 17:49 Bacteria HEAVY HPF (Abnormal)?? 12/16/2022 17:49 Squamous Epith 1 /HPF ()?? 12/16/2022 17:49 Triple Phosphate MODERATE /HPF ()?? 12/16/2022 17:49 Hold Urine Culture Testing available 48 hours from time of collection. ()?? 12/16/2022 17:49 ?? URINE OTHER Est Creatinine Clearance 36.38 mL/min ()?? 12/17/2022 06:53 ?? VIROLOGY COVID-19 by RT-PCR NEGATIVE ()?? 12/16/2022 17:08 ? * Roland Schultz MD: MODIFY, PERFORM, MODIFY Event Display: Consultation Note Authored Date: Patient: ??ARELIS CEBALLOS ? Age:??42 Years?Sex:??Female?:??1980?? Chief Complaint/Reason for Consultation Transfer from [place]. R sided abd pain. Expect attached. Surgical consult. History of Present Illness Arelis is a 42-year-old woman with a medical history of nephrolithiasis and hydroureteronephrosisstatus post right ureteral stent placement (01/2019) who presents to [facility] as a transfer from [facility] for management of perforated duodenal ulcer. ??Arelis mentions that for the past 2 days he has been endorsing severe abdominal pain which prompted her to go to the emergency department. ??A CT scan of the abdomen and pelvis with IV contrast was obtained which revealed pneumoperitoneum so was decided to transfer her for further evaluation and management to [facility]. ??Upon arrival to the ED she was noted to have a leukocytosis of 13.8 with neutrophilic predominance, normocytic anemia with hemoglobin of 10.1, and had a platelet count within reference range, comprehensive metabolic panel showed a sodium of 139, potassium of 3.9, hyperchloremia of 111, hypobicarbonatemia of 16, anion gap of 12, hyperglycemia of 134, elevated BUN and serum creatinineof 24 and 1.9 respectively. ??Serum creatinine baseline appears to be 0.9. ??Additionally she had elevated alk phos at 118 and lipase of 300. ??Lactate was also elevated at 2.6. ??Urinalysis showed aurine specific gravity of 1.020, pH of 8, 2+ albumin, 3+ hemoglobin, 3+ leukocyte esterase, over 182 white blood cells and 35 red blood cells in urine, and heavy bacteria. ??Additional findings on the CT scan of abdomen with pelvis showed moderate right hydroureteronephrosis with associated urothelial thickening and enhancement consistent with UTI, right ureteral stent in place, delayed right nephrogram, inflammatory changes of the bladder consistent with cystitis and a 6.7 cm bladder calculus,reactive portal per hour taken the lack of adenopathy and right adrenal adenoma. ??She was given a 1 L bolus of LR and continues to be on maintenance IV fluids at 140 mL/h. ??Labs this morning showeda sodium of 141, hyperkalemia of 5.5, hyperchloremia of 114, improvement in hypobicarbonatemia of 20, anion gap is 7, elevated ionized calcium of 1.55, BUN of 24 and the improvement in serum creatinine down to 1.7. ??It is documented that she only made 200 cc in 24 hours, this morning she has around 350 mL in Garrison bag. ??Nephrology consulted for management of acute kidney injury. Review of Systems Constitutional:??Denies weight loss, fever, chills, weakness or fatigue. Allergy/Immune: Denies any??eczema or hives Eyes:??Denies visual disturbances. ENT:??Denies hearing loss, sneezing, congestion, runny nose or sore throat. Respiratory: Denies shortness of breath, cough or increased??sputum production. Cardiovascular:??Denies??chest pain,??palpitations, lightheadedness, syncope, or swelling of the legs. Gastrointestinal: Contributory for abdominal pain. ??Denies loss of appetite, vomiting, diarrhea orblood in the stool.?? Genitourinary:??Denies burning micturition, urinary incontinence or increased??urinary frequency. Neurologic:??Denies headache, dizziness, syncope, unilateral weakness, numbness or tingling in the extremities.??Denies change in bowel or bladder control. Musculoskeletal:??Denies muscle pain, back pain, joint pain or stiffness. Hematologic/Lymphatics:??Denies bleeding or bruising.??Denies painful lymph nodes. Skin:??Denies rash or itching. Endocrine:??Denies cold or heat intolerance.??Denies increased thirst or hunger. Psychiatric:??Denies depression or anxiety. Objective Vital Signs?? Temperature: 97.6 DegF (12/17/22 10:00:00) Temperature Route: Oral (12/17/22 10:00:00) Pulse Rate: 90 bpm (12/17/22 10:00:00) Heart Rate Monitored:??94 bpm??High (12/17/22 04:34:00) Respiratory Rate: 22 br/min (12/17/22 10:10:00) Systolic Blood Pressure: 120 mm Hg (12/17/22 10:00:00) Diastolic Blood Pressure:??88 mm Hg??High (12/17/22 10:00:00) Blood pressure sites: Arm, right (12/17/22 10:00:00) Mean Arterial Pressure: 84 mm Hg (12/17/22 03:42:00) Pulse Pressure: 32 mm Hg (12/17/22 10:00:00) Oxygen Saturation:??93 %??Low (12/17/22 10:00:00) Liters per Minute: 2 L/min (12/17/22 03:00:00) Mode of Delivery (Oxygen): Room air (12/17/22 10:00:00) Early Warning Score: 6 (12/17/22 10:12:53) ? Physical Exam Constitutional:??42-year-old female??in no acute??distress. Mental Status: Oriented to person, place and time. Head: Atraumatic/Normocephalic. Neck: Supple, Full range of motion. Respiratory: Clear to auscultation. No wheezing, rales or rhonchi. Cardiovascular: S1 S2 regular. No murmurs, rubs or gallops. Extremities: No peripheral edema. Gastrointestinal: S/p exploratory laparotomy with clean dressing in place. Genitourinary: Garrison in place with 400 mL of clear yellow urine. Neurologic: Cranial nerves II-XII grossly intact. No focal neurological deficits. Moves all extremities spontaneously. Skin: No rashes or lesions. No petechiae or purpura.?? Musculoskeletal: No cyanosis or clubbing. No gross deformities. Psychiatric: Normal mood and affect Assessment/Plan Assessment:??Arelis is a 42-year-old woman with a medical history of nephrolithiasis and hydroureteronephrosis status post right ureteral stent placement (01/2019) who presents to [facility] as a transfer from [facility] for management of perforated duodenal ulcer. Nephrology consulted for management of acute kidney injury. ?? Acute kidney injury, stage 2 Hyperkalemia Hyperchloremia NAGMA R hydroureteronephrosis secondary to nephrolithiasis Serum creatinine baseline is 0.9. Acute kidney injury likely secondary to poor oral intake, she didhave an episode of hypotension 80/54 mmHg. She was oliguric yesterday with a urine output of 200 ccsince admission, less than 24h. She does report having diarrhea for 2 days which led to GI bicarbonate loss explaining her NAGMA. Obstructive component could also contribute to her DAYNE although she has unilateral hydroureteronephrosis. Urology team was also consulted. Patient??received IV contrast yesterday. ?? Recommendations: - Urine studies. - Urology consulted by primary team with plans for R??PCN tomorrow AM. - Patient is currently strict NPO, management of hyperkalemia with insulin and dextrose. Hyperkalemia will also improve with resolution of acidemia. - Continue IVF hydration. - Avoid NSAIDs and IV contrast if possible. - Continue to monitor electrolytes and renal function. ? Normocytic anemia Hypercalcemia Recurrent nephrolithiasis Patient has a normocytic anemia with hemoglobin of 10.1, MCV of 89.3, in 2019 her hemoglobin was within reference range. She has hyperglycemia with an elevated ionized calcium of 1.55, given her recurrent nephrolithiasis this raises concern for primary hyperparathyroidism, and with the anemia this could be concerning for multiple myeloma. Ionized calcium could also be elevated in setting of her acidemia. ?? Recommendations: - Will order SPEP, UPEP and serum IF. - Work up hypercalcemia with PTH level,?? 25 and 1-25 vitamin D levels, calcium, magnesium and phosphorus. ?Patient case and plan discussed with ??Holland. ?Roland Schultz MD ?Internal Medicine PGY-2 Histories Allergies Allergies ?(Active and Proposed Allergies Only) penicillin? (Severity: Unknown severity, Onset: Unknown) ?Reactions: rash ? Past Medical History/Problem List Active Problems??(5) Acute pyelonephritis DAYNE (acute kidney injury) Calculus of right ureter Hydronephrosis of right kidney Obese class II ? Past Surgical History R ureteral??stent placement. . ? Social History Alcohol Details:??Use: Never. Details:??Use: Never. Substance Abuse Details:??Type: Marijuana. ??Other: once in a while. Tobacco Details:??Use: 10 or more cigarettes (1/2 pack or more)/day in last 30 days. Details:??Use: 10 or more cigarettes (1/2 pack or more)/day in last 30 days. Electronic Cigarette/Vaping Details:??Electronic Cigarette Use: Never. ? Family History Denies significant medical family history. Medications Home Medications Acetaminophen / Hydrocodone (acetaminophen-HYDROcodone 325 mg-5 mg oral tablet)?1-2 tablet?ByMouth?Every 6 hours?as needed?for pain?May partial fillBS [id number] Docusate (Colace sodium 100 mg oral capsule)?1?capsule?100?Milligram?By Mouth?2 times a day?as needed?Constipation Ibuprofen (ibuprofen 600 mg oral tablet)?1?tab(s)?600?Milligram?By Mouth?4 times a day?as needed?Pain Oxycodone (oxycodone 5 mg oral tablet)?2?tab(s)?10?Milligram?By Mouth?Every 6 hours?as needed?Pain ? Inpatient Medications Medications (7) Active SCHEDULED: (4) Acetaminophen 1000 mg IVPB (Acetaminophen IVPB) ??1,000 mg 100 mL, IVPB, Every 6 hours Pantoprazole 40 mg Inj (Protonix Inj) ??40 mg, IV Push Slowly, Every 12 hours Piperacillin/Tazobactam 3.375 Gm Inj (Zosyn Extended IVPB) ??3.375 Gm, IVPB, Every 8 hours Vancomycin Pharmacy To Dose ??1 each, IVPB, Daily CONTINUOUS: (1) Lactated Ringers (1000 mL) Cont IV 1,000 mL (LR 1,000 mL) ??1,000 mL, IV Infusion, 140 mL/hr PRN: (2) HYDROmorphone 0.5 mg/0.5 mL Inj Syringe (Dilaudid Inj) ??0.5 mg 0.5 mL, IV Push Slowly, Every 4 hours Ondansetron 2mg/mL Inj (2mL Vial) (Ondansetron Inj) ??4 mg, IV Push, Every 6 hours ? Results Recent Labs BLOOD BANK Blood Type O Positive ()?? 12/16/2022 20:09 Antibody Screen Negative ()?? 12/16/2022 20:09 ?? BLOOD COUNT & DIFF WBC 14.5 k/mm3 (High)?? 12/17/2022 06:03 RBC 3.50 m/mm3 (Low)?? 12/17/2022 06:03 Hgb 9.6 Gm/dL (Low)?? 12/17/2022 06:03 Hct 31.9 % (Low)?? 12/17/2022 06:03 MCV 91.1 femtoliters ()?? 12/17/2022 06:03 MCH 27.4 pg ()?? 12/17/2022 06:03 MCHC 30.1 g/dL (Low)?? 12/17/2022 06:03 Platelet Count 364 k/mm3 ()?? 12/17/2022 06:03 RDW-SD 61.5 femtoliters (High)?? 12/17/2022 06:03 MPV 9.6 femtoliters ()?? 12/17/2022 06:03 Nucleated RBC (Automated) 0.0 #/100 WBC'S ()?? 12/17/2022 06:03 Abs. NRBC 0.0 k/mm3 ()?? 12/17/2022 06:03 Abs. Neut 13.0 k/mm3 (High)?? 12/17/2022 06:03 Abs. Lymph 0.8 k/mm3 ()?? 12/17/2022 06:03 Abs. Bacon 0.5 k/mm3 ()?? 12/17/2022 06:03 Abs. Eo 0.0 k/mm3 ()?? 12/17/2022 06:03 Abs. Baso 0.0 k/mm3 ()?? 12/17/2022 06:03 Neut % 89.8 % (High)?? 12/17/2022 06:03 Lymph % 5.5 % (Low)?? 12/17/2022 06:03 Bacon % 3.7 % (Low)?? 12/17/2022 06:03 Eos % 0.0 % ()?? 12/17/2022 06:03 Baso % 0.3 % ()?? 12/17/2022 06:03 RBC Morphology MODERATE ()?? 12/17/2022 06:03 WBC Morphology FEW ()?? 12/17/2022 06:03 Imm Gran 0.7 % ()?? 12/17/2022 06:03 Abs. Imm Gran 0.1 k/mm3 ()?? 12/17/2022 06:03 ?? CHEM GENERAL Sodium 141 mmol/L ()?? 12/17/2022 06:03 Potassium 5.5 mmol/L (High)?? 12/17/2022 06:03 Chloride 114 mmol/L (High)?? 12/17/2022 06:03 Bicarbonate Level 20 mmol/L (Low)?? 12/17/2022 06:03 Anion Gap 7 ()?? 12/17/2022 06:03 Glucose Level 94 mg/dL ()?? 12/17/2022 06:03 BUN 24 mg/dL (High)?? 12/17/2022 06:03 Creatinine-Blood 1.7 mg/dL (High)?? 12/17/2022 06:03 Estimated GFR Creatinine 38 ML/MIN/1.73 M2 ()?? 12/17/2022 06:03 Calcium, Ionized pH Corrected 1.55 mmol/L (Critical)?? 12/17/2022 06:03 Phosphorus 3.0 mg/dL ()?? 12/17/2022 06:03 Magnesium 1.9 mg/dL ()?? 12/17/2022 06:03 Alkaline Phosphatase 118 units/L (High)?? 12/16/2022 14:54 Lipase 300 units/L (High)?? 12/16/2022 14:54 AST (SGOT) 9 units/L ()?? 12/16/2022 14:54 ALT (SGPT) 6 units/L ()?? 12/16/2022 14:54 Bilirubin, Total 0.2 mg/dL ()?? 12/16/2022 14:54 Lactate 1.2 mmol/L ()?? 12/16/2022 18:27 ?? COAG INR 1.1 ()?? 12/16/2022 20:22 Protime (PT) 11.1 seconds ()?? 12/16/2022 20:22 APTT 29.1 seconds ()?? 12/16/2022 20:22 ?? ENDOCRINE/TUMOR MARKER Beta HCG-serum, Qual INDETERMINATE ()?? 12/16/2022 14:54 Blood 3 mIU/mL ()?? 12/16/2022 14:54 ?? HEME OTHER Hold Lavender Top SPECIMEN DISCARDED AFTER 24 HOURS. ()?? 12/16/2022 14:54 Hold Blue Top SPECIMEN DISCARDED AFTER 4 HOURS. ()?? 12/16/2022 14:54 ?? MISC. CHEMISTRY Hold Green Top SPECIMEN DISCARDED AFTER 1 WEEK ()?? 12/16/2022 18:27 ?? UA/URINALYSIS Appear/Color, Urine YELLOW ()?? 12/16/2022 17:49 Clarity MARKED TURBIDITY (Abnormal)?? 12/16/2022 17:49 Specific [place], Urine 1.020 ()?? 12/16/2022 17:49 pH, Urine 8.0 ()?? 12/16/2022 17:49 Albumin, Urine 2+ (Abnormal)?? 12/16/2022 17:49 Glucose, Urine NEGATIVE ()?? 12/16/2022 17:49 Ketones, Urine NEGATIVE ()?? 12/16/2022 17:49 Bilirubin, Urine NEGATIVE ()?? 12/16/2022 17:49 Hemoglobin, Urine 3+ (Abnormal)?? 12/16/2022 17:49 Nitrite, Urine NEGATIVE ()?? 12/16/2022 17:49 Leukocyte, Urine 3+ (Abnormal)?? 12/16/2022 17:49 Urobilinogen NORMAL mg/dL ()?? 12/16/2022 17:49 WBC's, Urine >182 /HPF (High)?? 12/16/2022 17:49 RBC's, Urine 35 /HPF (High)?? 12/16/2022 17:49 Bacteria HEAVY HPF (Abnormal)?? 12/16/2022 17:49 Squamous Epith 1 /HPF ()?? 12/16/2022 17:49 Triple Phosphate MODERATE /HPF ()?? 12/16/2022 17:49 Hold Urine Culture Testing available 48 hours from time of collection. ()?? 12/16/2022 17:49 ?? URINE OTHER Est Creatinine Clearance 36.38 mL/min ()?? 12/17/2022 06:53 ?? VIROLOGY COVID-19 by RT-PCR NEGATIVE ()?? 12/16/2022 17:08 ? * Marv Lino MD: PERFORM Event Display: Consultation Note Authored Date: [id number] RENAL ATTENDING ADDENDUM:??I have seen and evaluated this patient. I have discussed the case and its management with the resident/team as documented in the resident/team note on the day of service. The details of the case including pertinent labs and clinical findings were confirmed by me. The planwas formulated with the student/resident/fellow/PA/BUSINESS RULES DEVELOPER as outlined below.?? Note * Britney Jensen RN: PERFORM Event Display: Discharge/Transfer Note Hospital Authored Date: [id number] Nursing Discharge Note Entered On: 12/21/2022 15:04 EDT Performed On: 12/21/2022 15:04 EDT by Britney Jensen RN Nursing Discharge Note 2 Discharge Time : 12/21/2022 15:00 EDT Discharge Level of Care at Discharge : Homehealth/VNA Discharge VNA/Hospice/Home Care(v001) : [facility] [phone] Patient Left Unit Via : Ambulatory Patient Accompanied Off Unit with : Responsible adult DC Instructions Provided & Signed by Pt : Yes Patient Understands D/C Instructions : Yes Patient Instructions Discharge Signed : Yes Did Pt have Specialty Bed or Wound Vac : No Mikey PEREZ, Britney - 12/21/2022 15:04 EDT * Jennifer Shirley NP: PERFORM, MODIFY, SIGN, VERIFY, MODIFY, SIGN Event Display: Discharge/Transfer Note Hospital Authored Date: [id number] Patient: ARELIS CEBALLOS Age: 42 years Sex: Female : 1980 Associated Diagnoses: None Author: Jennifer Shirley NP Discharge Information Admission Date: 12/16/2022 Discharge Date 12/21/2022 Principal Discharge Diagnosis Pneumoperitoneum. Medications MEDICATION LIST (Selected) Prescriptions Prescribed Colace sodium 100 mg oral capsule: 1 capsule = 100 mg, By Mouth, 2 times a day, PRN Constipation, #20 capsule, 0 Refills, Maintenance, Capsule acetaminophen-HYDROcodone 325 mg-5 mg oral tablet: 1-2 tablet, By Mouth, Every 6 hours, PRN for pain, May partial fill [id number], # 12 tablet, 0 Refills, Maintenance, 10/08/18 23:25:53 EDT, Tablet, Partial fill upon patient request ibuprofen 600 mg oral tablet: 1 tablet = 600 mg, By Mouth, 4 times a day, PRN Pain, # 40 tablet, 0 Refills, Maintenance, Tablet oxyCODONE 5 mg oral tablet: 5 mg, 1, tablet, By Mouth, Every 6 hours, PRN, # 15 tablet, Refills 0, Tot. Refills 0, Maintenance, Pain , Severe, 12/21/22 13:17:00 EDT, Route to Pharmacy Electronically,[facility], 160, cm, 12/21/22 4:05:00 EDT, Height, 100.1, kg, .... Aware of diagnosis: patient. Procedures Indication for Surgery 42F with hx of neprolithiasis s/p R ureteral stent who presented as a transfer from [place] with acute onset abdominal pain beginning the morning of 12/16. Workup demonstrated a leukocytosis of [address] scan demonstrating concern for duodenal perforation. She was taken emergently for operative intervention. Preoperative Diagnosis Perforated viscous Postoperative Diagnosis 1cm perforated prepyloric ulcer Operation Exploratory laparotomy with primary repair of prepyloric ulcer and omental buttress Surgeon(s) Eyad Allen MD (Primary Surgeon) Sound Equipment Mechanic Adryan Arriaga MD (PGY5) Anesthesia General Anesthesia Elieser Lagos MD (Att Anesthesiologist) Estimated Blood Loss 20 Urine Output 300 Findings 400cc of purulence and bile in the abdomen 1cm prepyloric ulcer with thickened, friable pylorus and duodenum Specimen(s) Gastric biopsy Complications Needle stick . Discharge condition: good Compared to admission: improved Pre-procedure diagnosis and Indication: 42 yo patient with nephrolithiasis and hydroureteronephrosis s/p right ureteral stent placement (01/2019) which remains insitu, large bladder calculus who was transferred from [facility] to [facility] now POD1 s/p ex-lap for repair of perforated duodenal ulcer. IR consulted for right PCN catheter placement based on Urology team recommendations. Exam: Prior to the procedure, the patient was seen and the nature of the procedure explained along with its attendant risks and benefits to the patient. Informed consent for the procedure was obtained from the patient. The patient underwent a pre-sedation assessment. On completion of this it was determined the patient is appropriate for the planned procedure. The patient arrived in IR room 2 for a right nephrostomy insertion. PROCEDURE: The patient was positioned lateral, with the right side up. (Unable to lay prone in the setting of recent abdominal surgery). The patient was secured with arm boards, safety straps. The access site was evaluated with ultrasound and images archived. The site was prepped with chloraprep and draped in the usual sterile fashion. Patient received moderate sedation administered under my direct supervision. Local anesthetic was given and the right kidney was identified using ultrasound. Access to the right kidney via a lower pole calyx was achieved using a DIANNA-NV Introducer kit access needle. Contrast was injected via the access needle, which opacified the right renal collecting system. Incidentally visualized portion of the prior right ureteral stent. An 0.018 guidewire was placed, over which the DIANNA-NV access system was advanced. The wire and inner obturators were removed and contrast was injected, which opacified the right renal collecting system. An 0.035 Amplatz guidewire was placed, the 6 Fr outer catheter was removed, the tract was dilated and an 8.5 FR PCN catheter was inserted. The pigtail was formed and contrast injected to check placement of new tube, which opacified the right renal collecting system. A specimen was obtained for labwork. The catheter was secured to the skin using 2-0 prolene suture and was connected to a drainage bag. The sterile field was maintained throughout the procedure and patient tolerated the procedure well with no complications of the procedure. estimated blood loss was minimal Specimens/samples: urine sample from the right kidney was sent Patient transferred [facility] procedure instructions sent in envelope with the patient Impression: Ultrasound and fluoroscopically-guided placement of a new 8.5 Fr right percutaneous nephrostomy catheter. Catheter care as ordered. Return to floor and resume care as per the primary team. Hospital Course Arelis is a 42-year-old female with PMH significant for kidney stones s/p right ureteral stent (2018) who presented as a transfer from [facility] with 1 day of epigastric abdominal pain, DAYNE, and CT A/P findings of pneumoperitoneum and abdominal free fluid likely from upper GI perforation, as well as right hydronephrosis and a large bladder stone. She was found to have involuntary guarding on exam and was taken emergently to the operating room, where she underwent exploratory laparotomy, primary repair of 1cm perforated pre-pyloric ulcer with omental buttress by Alejandro on 12/17/2022. She was found to have 400cc of purulence/bile in the abdomen. She then underwent right percuta neous nephrostomy placement with IR on 12/18 for hydroureteronephrosis. She is recovering well post-operatively. Garrison removed, adn voiding well, right PCN remains in place with clear yellow urine. NGT was removed POD3 and advanced tolerated a clear liquid diet with no issues. She had return of fullbowel function on PDO4 and her diet was advanced as well as she finished course of antibiotics. The patient was cleared for discharge on 12/21/2022. At that time she was tolerating a diet without nausea or vomiting, her pain was well controlled, she was passing flatus, BMs, voiding, CYU from nephrostomy tube and ambulating without difficulty. The patient was instructed to follow up with her PCP in 1-2 weeks, with urology for nephrostomy tube, renal and with her surgeon, Dr. Allen, in approximately 1-2 weeks. She was given prescriptions for Oxycodone and encourage to take OTC Tylenol forpain first and Colace 100mg BID if constipated. Significant Results Results: Vital signs : VITAL SIGNS SECTION 12/21/2022 11:00 EDT Temperature 98.0 DegF Temperature Route Oral Pulse Rate 86 bpm Systolic Blood Pressure 109 mm Hg Diastolic Blood Pressure 62 mm Hg Blood pressure sites Arm, left Pulse Pressure 47 mm Hg Oxygen Saturation 98 % Mode of Delivery (Oxygen) Room air , Laboratory : LABORATORY 12/21/2022 1:35 EDT WBC 5.4 k/mm3 RBC 3.53 m/mm3 L Hgb 9.6 Gm/dL L Hct 30.8 % L MCV 87.3 femtoliters MCH 27.2 pg MCHC 31.2 g/dL L Platelet Count 397 k/mm3 RDW-SD 57.0 femtoliters H MPV 9.1 femtoliters L Nucleated RBC (Automated) 0.0 #/100 WBC'S Abs. NRBC 0.0 k/mm3 Abs. Neut 2.4 k/mm3 Abs. Lymph 2.1 k/mm3 Abs. Bacon 0.4 k/mm3 Abs. Eo 0.4 k/mm3 Abs. Baso 0.0 k/mm3 Neut % 44.4 % Lymph % 38.7 % Bacon % 7.1 % Eos % 7.9 % H Baso % 0.6 % Imm Gran 1.3 % Abs. Imm Gran 0.1 k/mm3 Sodium 137 mmol/L Potassium 3.4 mmol/L L Chloride 109 mmol/L H Bicarbonate Level 17 mmol/L L Anion Gap 11 Glucose Level 91 mg/dL BUN 8 mg/dL Creatinine-Blood 1.5 mg/dL H Estimated GFR Creatinine 45 ML/MIN/1.73 M2 Calcium, Ionized pH Corrected 1.63 mmol/L C Phosphorus 2.0 mg/dL L Magnesium 1.9 mg/dL . Discharge Plan 1 2 1 2 1 2 1 2 1 2 1 2 1 2 1 2 Discharge Disposition Discharge: home with VNA. Home Health Face to Face I certify that this patient is under my care and that I or an allowed non- physician practitioner working with me, had a [id number] encounter with the patient on this date: 12/21/2022. The encounter with the patient was in whole, or in part, for the following medical condition, whichis the primary reason for home health care: Acute prepyloric ulcer. Nursing: Drain Care, nephrostomy tube, output character and dressing care. Homebound due to: Inability to leave home without assistance/supervision, Inability to ambulate without assistance, Pain, decreased strength, and endurance. Physician Signature: Eyad Allen MD . Prescription Given this visit:Prescriptions Oxycodone (oxyCODONE 5 mg oral tablet) 1 tablet = 5 mg, By Mouth, Every 6 hours, # 15 tablet, 0 Refills, [facility] [place] [address] [phone] Next Dose: Pantoprazole (pantoprazole 40 mg oral delayed release tablet) 40 mg, By Mouth, Daily, # 90 capsule, 0 Refills, [facility] [place] [address] [phone] Next Dose: Patient Instructions Given:Special Instructions If you develop fever, chills, increased pain, nausea, vomiting, bleeding, or increased redness or pus around the wound please call the surgery office at . Please take medications as prescribed and do not drive while on narcotic medications. If you have any questions, please call the surgery office at . Please call your Primary Care Provider within 1 week for post hospital follow up and review of yourmedications. Please make sure to call and arrange follow up within a week with urology, renal and surgery all number given below. Make sure you continue taking your protonix twice per day to prevent future ulcers Activity Instructions -No heavy lifting >10 lbs -Increase activity as tolerated -Encourage coughing and deep breathing, use of incentive spirometer -No tub baths until incision(s) has/have healed -May shower on postop day #2 -No driving until off narcotics and cleared by Surgery When to call your healthcare provider 1 Call your healthcare provider if you have any of the below: 2 Pain, redness, swelling, or bleeding that gets worse 1 2 Smelly fluid from the incision, or changes in color of the drainage from the incision 1 2 Fever of 100.4??F ( 38??C) or higher, or as advised 1 2 Shaking or chills 1 2 Vomiting or nausea that doesn???t go away 1 2 Numbness, coldness, or tingling around the incision 1 2 Changes in skin color around the incision 1 2 Opening of the wound Ira that fall out Education Given:Peptic Ulcer Disease Patient Follow-up:Added Follow Up Time Frame Comments Jemal GREEN, Miguel Angel Osborne 1 week Please call to schedule your follow up for nephrostomy care management Holland GREEN, Marv 1 to 2 weeks Follow up for DAYNE Alejandro GREEN, Eyad 1 to 2 weeks Please call to schedule your follow up * Mikey PEREZ, Britney: PERFORM, MODIFY Event Display: Patient Education/Instruction Authored Date: [id number] Inpatient Adult Discharge Instructions [address] [address] Name: ARELIS CEBALLOS : 1980 Visit: 12/16/2022 20:06:00 Current Date: 12/21/2022 14:26 Account: [id number] Inpatient Adult Discharge Instructions We would like to thank you for allowing us to assist you with your healthcare needs. The following includes patient education materials and information regarding your injury/illness. Our entire staffstrives to provide an excellent experience for our patients and their families. PLEASE ENSURE YOU FOLLOW-UP PER THE INSTRUCTIONS BELOW! ?? YOUR OPINION IS IMPORTANT TO US! Please complete the survey you may receive by mail or email. Your feedback will be used to make improvements to the healthcare experiences of our patients and their families. Surveys are administered by [employer] ?? If further treatment with your primary care physician or another doctor is recommended, it is important for you to keep the appointment. Call your primary care physician or return to the Emergency Department immediately if your condition worsens, fails to improve, or new symptoms develop. If you need to find a doctor, you can call [facility] for a referral at [phone] or toll free at [phone] [email or web address] ([phone]) or log in to [email or web address].. ?? [facility], in keeping with [facility] guidance, no longer requires face masks for staff, patientsor visitors in most situations. Similiar to time spent indoors at other locations, there is the chance that you were exposed to repiratory viruses during your time with us (such as flu or COVID-19). If you develop symptoms concerning for a viral respiratory infection, please seek testing (and treatment if indicated) from your medical provider or home test kit. ?? You can view and manage your care through the patient portal or by using a health care felix of your choosing. [employer] is a website that allows you to securely view your medical information including your hospital discharge summary, office visit summaries, medications and follow-up visits. You can also request appointments, renew medications, and request access to your medical information using a health care felix of your choosing, or just ask a question. You can enroll at [email or web address] or register during your next office visit. You have been discharged from [facility], Patient Care Unit: SW6. If you have any questions regarding these instructions after you leave, please call us and we will be happy to assist you. [facility] Your Care Team Attending Physician Alejandro GREEN, Eyad Consulting Providers Alejandro GREEN, Eyad Discharging Providers Jennifer Shirley NP A Reason for Admission Transfer from [place]. R sided abd pain. Expect attached. Surgical consult. Your Diagnosis Pneumoperitoneum Acute kidney injury Elevated LFTs Leukocytosis Peritonitis Hydronephrosis, right Acute prepyloric ulcer Tests Performed Below is a partial list of the tests performed during your hospitalization. You may have had other tests and procedures not included in this list. Please discuss all test results with your provider. 1,25OH VITAMIN D 94449 25OH VITAMIN D BUN CALCIUM Calcium Ionized CBC w/ Differential Creatinine Creatinine Urine [id number]?-- Results Pending -- Glucose Level GLUCOSE POC HIV Ab-Ag 4th Generation IMMUNOFIXATION SERUM?-- Results Pending -- INR Lytes Magnesium Level Phosphorus Level PTH, INTACT PTT SERUM ELECTROPHORESIS?-- Results Pending -- Sodium Urine Type and Screen Urine Chloride Urine Osmolality Urine Potassium Urine Protein/Creatinine Ratio VANC-RANDOM IR Generic Order IR US Images?-- Results Pending -- Portable Chest You will be contacted within 72 hours with your results. Primary Care Provider Not on Staff, PCP Advance Directive Health Care Proxy on File No Patient refuses to discuss Discharge Vitals Temperature: 98 DegF Height: 160 cm Pulse Rate: 86 bpm Weight: 94.1 kg Respiratory Rate: 18 br/min Body Mass Index:??39.1 kg/m2??Critical Systolic Blood Pressure: 109 mm Hg Body surface area: 2.11 Diastolic Blood Pressure: 62 mm Hg ?? Oxygen Saturation: 98 % ?? Studies Pending All tests and labs ordered during this hospital stay have been completed unless listed below. Please discuss all pending results with your provider listed above in these instructions. ?? Add On Lab Order BUN CBC w/ Differential COVID-19 (2019 Novel Coronavirus) PCR Creatinine Electrolytes (Lytes) Glucose Level H. pylori Antigen (Helicobacter pylori Antigen) IR US Images Immunofixation Serum Ionized Calcium (Calcium Ionized) Magnesium Level Phosphorus Level Protein Electrophoresis (SERUM ELECTROPHORESIS) What to do next Instructions From Your Doctor Special Instructions ?? If you develop fever, chills, increased pain, nausea, vomiting, bleeding, or increased redness or pus around the wound please call the surgery office at . Please take medications as prescribed and do not drive while on narcotic medications. ?? If you have any questions, please call the surgery office at . ?? Please call your Primary Care Provider within 1 week for post hospital follow up and review of yourmedications. ?? Please make sure to call and arrange follow up within a week with urology, renal and surgery all number given below. ?? Make sure you continue taking your protonix twice per day to prevent future ulcers ?? Activity Instructions ?? -No heavy lifting >10 lbs -Increase activity as tolerated -Encourage coughing and deep breathing, use of incentive spirometer -No tub baths until incision(s) has/have healed -May shower on postop day #2 -No driving until off narcotics and cleared by Surgery ? When to call your healthcare provider ?? Call your healthcare provider if you have any of the below: ? Pain, redness, swelling, or bleeding that gets worse ? Smelly fluid from the incision, or changes in color of the drainage from the incision ? Fever of 100.4??F ( 38??C) or higher, or as advised ? Shaking or chills ? Vomiting or nausea that doesn't go away ? Numbness, coldness, or tingling around the incision ? Changes in skin color around the incision ? Opening of the wound ?? Ira that fall out ? Discharge Orders You Need to Schedule the Following Appointments Follow Up with??Jemal GREEN, Miguel Angel Osborne When:??Within 1 week Why: Please call to schedule your follow up for nephrostomy care management Where: [address] [facility] [place] [address] Follow Up with??Holland GREEN, Marv When:??Within 1 to 2 weeks Why: Follow up for DAYNE Where: [address] [place] [address] [address] [facility] [place] [address]- Follow Up with??Alejandro GREEN, Eyad When:??Within 1 to 2 weeks Why: Please call to schedule your follow up Where: [address] [facility] [place], [address] [facility] [place] [address]- Discharge Medications ARELIS CEBALLOS :1980 Visit Date:12/16/2022 Medications: Please continue your medications until treatment is completed or stopped by your provider. Medications not listed below should be discontinued. Discuss any questions related to medications with your provider. What How Much When Instructions Next Dose New Pantoprazole (pantoprazole 40 mg oral delayed releasetablet) 40 Milligram Oral Daily Pickup at [facility] 3 12-22-22 Changed Oxycodone (oxyCODONE 5 mg oral tablet) 1 tab(s) Oral Every 6 hours as needed for Pain , Severe Pickup at [facility] 3 5 pm 12-21-22 Unchanged Acetaminophen / Hydrocodone (acetaminophen-HYDROcodone 325 mg-5 mg oral tablet) 1-2 tablet Oral Every 6 hours as needed for for pain May partial fill [id number] ?? as directed Unchanged Docusate (Colace sodium 100 mg oral capsule) 1 capsule Oral Twice a day as needed for Constipation as needed Unchanged Ibuprofen (ibuprofen 600 mg oral tablet) 1 tab(s) Oral 4 times a day as needed for Pain as needed Pharmacy Information [facility]: [address] [place], [place] [id number] [phone] Test Results Below is a partial list of the most recent Laboratory test results done prior to this discharge. You may have had other tests and procedures not included in this list. Please discuss all test resultswith your provider. Est Creatinine Clearance - 41.23 mL/min (12/21/2022) 1,25OH VITAMIN D (12/17/2022) ???1,25 OH-Vitamin D Level - 28.1 16943 (12/16/2022) ? ?Surgical Pathology - Patient Name: ARELIS CEBALLOS
Lab
Patient : 1980 (Age: 42)
Collection Date: 12/16/2022
Accession Date: 12/17/2022
Sign Out Date: 12/19/2022

<br/& gt;Tissue Source:
1:DUODENAL BIOPSY

Final Diagnosis:
Gastro-duodenal, biopsy:
- Fibromuscular and adipose tissue with active and chromic inflammation, fibrosis, thrombosed vessels and reactive changes (clinically pyloric perforation).

Note: Deeper levels have been examined, no carcinoma identified (CAM 5.2 immunostain is negative).

Comment:
These immunohistochemistry and/or in-situ hybridization tests were developed and their performance characteristics determined by the immunohistochemistry and in-situ hybridization laboratories at [facility], [place], [place]. They may not have been cleared or approved by the U.S. Food and Drug Administration (FDA). However, the FDA has determined that such clearance or approval is not necessary. These tests are used for clinical purposes. They should not be regarded as investigational or forresearch.

All immunohistochemical controls are reviewed and show appropriate staining.

Primary Pathologist:Tylor Gil MD
electronically signed out by: Tylor Gil MD / DIANA

Clinical History:
Gastric/pyloric perforation.

Gross Description:
Labeled duodenal biopsy on specimen container and "gastric-duodenal biopsy on requisition. Received in formalin is 1 fuentes-pink irregular soft tissue piece measuring 0.8 x 0.6 x 0.3 cm. The specimen is submitted in toto.
1-1 piece x 2 EOE. ()*

Phone #: [phone], On-Call Pathologist: [id number] 25OH VITAMIN D (12/17/2022) ???25 OH-Vitamin D Level - 10.5 ng/mL BUN (12/21/2022) ???BUN - 8 mg/dL CALCIUM (12/17/2022) ???Calcium - 11.0 mg/dL Calcium Ionized (12/21/2022) ???Calcium, Ionized pH Corrected - 1.63 mmol/L CBC w/ Differential (12/21/2022) ???WBC - 5.4 k/mm3???RBC - 3.53 m/mm3???Hgb - 9.6 Gm/dL???Hct - 30.8 %???MCV - 87.3 femtoliters???MCH - 27.2 pg???MCHC - 31.2 g/dL???Platelet Count - 397 k/mm3???RDW-SD - 57.0 femtoliters???MPV - 9.1femtoliters???Nucleated RBC (Automated) - 0.0 #/100 WBC'S???Abs. NRBC - 0.0 k/mm3???Abs. Neut - 2.4 k/mm3???Abs. Lymph - 2.1 k/mm3???Abs. Bacon - 0.4 k/mm3???Abs. Eo - 0.4 k/mm3???Abs. Baso - 0.0 k/mm3???Neut % - 44.4 %???Lymph % - 38.7 %???Bacon % - 7.1 %???Eos % - 7.9 %???Baso % - 0.6 %???Imm Gran - 1.3 %???Abs. Imm Gran - 0.1 k/mm3 Creatinine (12/21/2022) ???Creatinine-Blood - 1.5 mg/dL???Estimated GFR Creatinine - 45 ML/MIN/1.73 M2 Creatinine Urine (12/17/2022) ???Creatinine, Urine Random - 52.6 mg/dL Glucose Level (12/21/2022) ???Glucose Level - 91 mg/dL GLUCOSE POC (12/17/2022) ???Glucose, POC - 85 mg/dL HIV Ab-Ag 4th Generation (12/17/2022) ???HIV 4th Generation Ab-Ag Result - NEGATIVE INR (12/16/2022) ???INR - 1.1???Protime (PT) - 11.1 seconds Lytes (12/21/2022) ???Sodium - 137 mmol/L???Potassium - 3.4 mmol/L???Chloride - 109 mmol/L???Bicarbonate Level - 17 mmol/L???Anion Gap - 11 Magnesium Level (12/21/2022) ???Magnesium - 1.9 mg/dL Phosphorus Level (12/21/2022) ???Phosphorus - 2.0 mg/dL PTH, INTACT (12/17/2022) ???PTH, Intact - 246 pg/mL PTT (12/16/2022) ???APTT - 29.1 seconds Sodium Urine (12/17/2022) ???Sodium, Urine Random - 87 mmol/L Type and Screen (12/16/2022) ???Blood Type - O Positive???Antibody Screen - Negative Urine Chloride (12/17/2022) ???Chloride, Urine Random - 92 mmol/L Urine Osmolality (12/17/2022) ???Osmolality, Urine Random - 454 mOsm/kg Urine Potassium (12/17/2022) ???Potassium, Urine Random - 49.7 mmol/L Urine Protein/Creatinine Ratio (12/17/2022) ???Protein, Total Urine Random - 73 mg/dL???TP/Cr Ratio - 1.39???Creatinine, Urine - 52.6 mg/dL VANC-RANDOM (12/18/2022) ???Vancomycin Level, Random - 6.0 mg/L Allergies (NKA means No Known Allergies) penicillin??(rash) Problems Active Problems??(5) Acute pyelonephritis?? DAYNE (acute kidney injury)?? Calculus of right ureter?? Hydronephrosis of right kidney?? Obese class II?? Education Materials Below is the list of Educational Leaflet Providered with your Discharge Instructions. Peptic Ulcer Disease?? Valuables and Belongings I fully understand and agree that [facility] accepts no responsibility for all my personal property including clothing, toilet articles, radios, jewelry, dentures, hearing aids, rings, money, or any other property that is in my possession or is brought to me after admission. I understand certain valuables may be placed in a hospital safe for a short period of time. I understand that the hospital is not liable for loss or damage due to accident, fire, or other natural occurrence while said property is in the safe. I accept full responsibility for any personal property that I keep with me, and will not hold the hospital responsible in case of loss or disappearance. I acknowledge that i have been encouraged to send valuables and belongings home. ?? Safe envelope number: [id number] Deposit/Withdrawal: Deposit Money/Amount: 355 Review of Valuable and Belonging List: With witness Disposition of Belongings: Other: Money sent to [facility] office Possessions released to: to PACU Date for Pt to Sign Valuables/Belongings: 12/18/22 20:49:00 ?? Other Discharge Information ? Case Management Discharge Plan?? Discharge Plan?? Discharge Agency Information?? Discharge Level of Care at Discharge: Homehealth/VNA Name of Agency #1: [facility] [phone] Discharge VNA/Hospice/Home Care: [facility] [phone] Agency Guidance Director #1: Intake ?? Service Categories #1: [facility] ?? Service Comments #1: [facility] will contact you to arrange a home visit to assist with your nephrostomy tube. ??Please call their office with any questions. ?? Pulmonary Rehab Status?? Pulmonary Rehab Discharge Status?? Respiratory Rate: 18 br/min ? Common Emergency Awareness Tips IS IT A STROKE? Act FAST and Check for these signs: FACE Does the face look uneven? ARM Does one arm drift down? SPEECH Does their speech sound strange? TIME Call at any sign of stroke ?? Heart Attack Signs Chest discomfort: Most heart attacks involve discomfort in the center of the chest and lasts more than a few minutes, or goes away and comes back. It can feel like uncomfortable pressure, squeezing, fullness or pain. Discomfort in upper body: Symptoms can include pain or discomfort in one or both arms, back, neck, jaw or stomach. Shortness of breath: With or without discomfort. Other signs: Breaking out in a cold sweat, nausea, or lightheaded. Remember, MINUTES DO MATTER. If you experience any of these heart attack warning signs, call to get immediate medical attention! ?? Smoking can increase your chances of developing chronic health problems and can cause harmful effects to other family members in your house. If you smoke, you are strongly encouraged to quit. Please call [facility] at [phone] or [phone] ([phone]) or log in to [email or web address] for referrals to smoking cessation programs. ?? 505 Suicide & Crisis Lifeline is available 28/10 if you or someone you know needs to find a reason to keep living. By calling 448 you'll be connected to a skilled, trained counselor at a crisis center in your area. INPATIENT DISCHARGE INSTRUCTIONS SIGNATURE PAGE ARELIS CEBALLOS Location:[facility] Registration Date and Time:12/16/2022 20:06 EDT Primary Care Physician: Not on Staff, PCP Attending Physician: Alejandro GREEN, Eyad, ARELIS COTTRELL, have received the above patient education materials/instructions and have verbalized understanding. If ambulance or transport services are being used I further acknowledge being given a choice of service. ?? If you need to contact me, please call me at this number: . Patient/Supervisor Waterworks Name: Patient/Supervisor Waterworks Signature: Relationship to Patient: Witness Name/Signature: Date: * Jennifer Shirley NP: PERFORM Event Display: Patient Education Leaflets Authored Date: [id number] Peptic Ulcer Disease ?? Peptic Ulcer Disease - Video Peptic ulcers are erosions in the lining of the esophagus, stomach, or duodenum. Ulcers in the stomach are called gastric ulcers, and duodenal ulcers if in the duodenum. This video explains the possible causes of this disease, including the bacterium Helicobacter pylori. To view the video go to this web address: [email or web address] Or, scan this QR code with your smart phone Last Reviewed Date: 2020 ?? 8052-3736 [employer]. All rights reserved. This information is not intended as a substitute for professional medical care. Always follow your healthcare professional's instructions. ?? Patient Care team information Care Team Personnel Name: Mora Luis RN Position: S RN Member Role: Primary Care Nurse Name: Lara Freeman Position: S RN Member Role: Primary Care Nurse Name: Grace Diehl RN Position: [facility] RN Member Role: Primary Care Nurse Name: Violet Wells NP Position: [facility] Associate Professional Member Role: [employer] Consulting Provider Address: Address: [address] [place] [address] [facility] [address] Name: Marv Lino MD Position: [facility] Renal MD Member Role: [employer] Consulting Physician Address: Address: [address] [place] [address] [facility] [address] Name: Britney Jensen RN Position: [facility] RN Member Role: Primary Care Nurse Name: Krzysztof Aguiar RN Position: [facility] RN Member Role: Primary Care Nurse Name: Not on Staff, PCP Position: [facility] Physician (General Medicine) Member Role: PCP Name: RadhaKailyn Watkins Attending Position: [facility] ED Medicine MD Name: Director Leonora GREEN Position: [facility] Resident Member Role: ED Resident Address: Address: [address] [place] [address] Emergency [place], [place] [address] Name: Lidia Tuttle Position: [facility] ED TA [facility] Member Role: Patient Care Provider Name: Emelia Price RN Position: [facility] ED RN W/OE and Tasks Member Role: Patient Care Provider Name: Rafael Mckinney Position: [facility] ED OA Charge Member Role: ED Associate Care Team Related Persons Name: ARSENArley CURRY Address: [place] [address]
--- OUTSIDE RECORDS SUMMARY | 2023-05-20 01:58 | XMS_ITS | Continuity of Care Document ---
Author Name Unknown Organization [facility] ter Address [address] [place] [id number] Care Team Providers Care Marine Diver Name Role Phone Not on Staff, PCP Primary Care Physician Unavail able Encounter [facility] Date(s): 01/24/23 - 01/25/[address] [address] Discharge Disposition: A-D/C Home Attending Physician: Josh Ramon MD Admitting Physician: Brien Lewis MD Referring Physician: Not on Staff, Referring MD Allergies, Adverse Reactions, Alerts Substance Reaction Severity Status amoxicillin hives,rash,itching Moderate Active penicillin 1 rash Active 1Tolerated piptazo during admission december 2022 Immunizations Given and Recorded Vaccine Date Status Refusal Reason influenza virus vaccine, inactivated 01/25/23 Give n tetanus/diphtheria/pertussis, acel(Tdap) 04/20/10 Given Medications cephalexin monohydrate 250 mg oral capsule 1 capsule = 250 mg, By Mouth, 4 times a day, for 5 days, # 20 capsule, 0 Refills, Acute 01/30/23 13:52:00 EDT, 01/25/23 13:52:00 EDT, Capsule, [facility], Partial fill upon patient request if the prescription is for a schedule II opioid... Start Date: 01/25/23 Stop Date: 01/30/23 Status: Ordered MorPHINE Inj 2 mg, Injection, IV Push Slowly, Every 4 hours for 7 days, PRN for Pain , Severe, Routine, 01/25/2312:07:00 EDT, Stop date 01/31/23 12:06:00 EDT Start Date: 01/24/23 Stop Date: 01/26/23 Status: Discontinued oxyCODONE 5 mg oral tablet 5 mg, 1, tablet, By Mouth, Every 6 hours, PRN, for 3 days, # 12 tablet, Refills 0, Tot. Refills 0, Acute 01/28/23 13:07:00 EDT, as needed for pain, 01/25/23 13:07:00 EDT, Route to Pharmacy Electronically, [facility], Partial fill upon pa... Start Date: 01/25/23 Stop Date: 01/28/23 Status: Ordered pantoprazole 40 mg oral delayed release tablet = 40 mg, By Mouth, Daily, # 90 capsule, 0 Refills, Maintenance, 12/21/22 13:23:00 EDT, EC Tablet, 160, cm, 12/21/22 4:05:00 EDT, Height, 100.1, kg, 12/17/22 3:49:00 EDT, Dry Weight Start Date: 12/21/22 Status: Ordered Problem List Condition Confirmation Course Effective Dates Status H ealt Status Informant Acute pyelonephritis Confirmed Active Hydronephrosis of right kidney Confirmed Active DAYNE (acute kidney injury) Confirmed Active Obese class II Confirmed Active Calculus of right ureter Confirmed Active Results Radiology Reports * Exam Date Time Procedure Performing Provider Status 01/24/23 1:52 PM IR End of Case Report Mo dified IR End of Case Report * Exam Date Time Procedure Performing Provider Status 01/24/23 1:52 PM IR Nephrostomy Tube Change Auth (Verified) Notes: (IR Nephrostomy Tube Change) Reason For Exam: Other: IR Nephrostomy Tube Change Patient: MICHELLE CEBALLOS Study Date: 01/24/2023 Performing: Claudia Roberts MD Referring: : 1980 Age: 42 Gender: FEMALE Pre-procedure diagnosis and Indication: 42 yo patient with nephrolithiasis and hydroureteronephrosis s/p right ureteral stent placement (01/2019) which remains insitu, large bladder calculus who was transferred from [facility] to [facility] in December 2022 s/p ex-lap for repair of perforated duodenal ulcer and right PCN catheter placement (12/18/22). She returns to [facility] today, transferred from [facility] ED after retraction of her right PCN catheter, the exact date of retraction is not known, however at least two days per patient report. She has not followed-up as an outpatient with her Urologist. Exam: Prior to the procedure, the patient was seen and the nature of the procedure explained along with its attendant risks and benefits to the patient . Informed consent was obtained from, the patient . The patient underwent a pre-sedation assessment. On completion of this it was determined the patient is appropriate for the planned procedure. The patient arrived in IR room 1 for a right nephrostomy change. PROCEDURE: The patient was positioned lateral, with the right side up. and secured with arm boards. The site was prepped with chloraprep and draped in the usual sterile fashion. Patient received moderate sedation administered under my direct supervision. 1% Lidocaine was used for local analgesia. Launching Pad Mechanic image was obtained, which demonstrated the tip of the existing right percutaneous nephrostomy catheter significantly retracted in comparison to the indwelling nephroureteral stent. Contrast was injected via the existing nephrostomy catheter, which did not opacify the tract leading to the right renal collecting system, instead tracking backwards along the existing catheter tract. The existing catheter was cut and a 0.035 inch stiff and Glidewire was advanced, with tip coiled within the expected region of the right renal collecting system. The existing catheter was removed over the wire. A 5 Fr angled catheter was then advanced over the stiffened Glidewire into the expected region of the right renal collecting system. Contrast was injected via the angled catheter, opacifying the right renal collecting system. A 0.035 inch Amplatz guidewire was then advanced, with tip coiled within the right renal collecting system. The patient continued to move on the table while attempt was being made for nephrostomy catheter placement, causing buckling of the wire within the soft tissues, this was despite moderate sedation and verbal redirection attempts. The loop formed within the soft tissue secondary to patient movement could not be reduced without retraction of the wire tip from the right renal collecting system. Despite attempts at repositioning, this tract could not be reaccessed. We removed the wire in its entirety and prepared for a new percutaneous access. Given the absence of erythema or overlying purulence at the existing incision site, the same access incision site was used to minimize number of incisions. A 21-gauge needle was advanced wire the skin into the lower pole of the right kidney, at the level of the collecting system portion of the indwelling nephroureteral stent. This was done under ultrasound and fluoroscopic guidance. Once needle position was confirmed, a 0.018 inch guidewire was advanced, tip coiled within the right renal collecting system. The DIANNA-NV access system was then advanced over the guidewire. The wire and inner obturators were removed and contrast injection via the outer 6 Fr catheter opacified the right renal collecting system. A 0.035 inch Amplatz guidewire was then placed, with tip coiling into the upper pole of the right kidney. The artery catheter was removed, the tract was dilated and a new 8.5 Fr percutaneous nephrostomy catheter was advanced. Pigtail was formed. Catheter position within the right renal collecting system was confirmed with a spot fluoroscopic image and contrast injection. The catheter was connected to gravity bag drainage and secured to the skin with two 2-0 Prolene sutures. A dressing was applied. The sterile field was maintained throughout the procedure and patient tolerated the procedure well with no complications of the procedure. estimated blood loss was minimal Specimens/samples: no specimens or samples were sent for this procedure Patient transferred to[facility] Impression: Unable to reposition existing right nephrostomy catheter due to significant patient movement despite moderate sedation and verbal redirection attempts, degree of retraction and tortuous soft tissue course. The malpositioned retracted existing PCN catheter was removed. 2. New 8.5 Fr right PCN catheter placed via existing incision site, similar overall trajectory compared to prior. Catheter care as ordered. Resume care as per primary team. 3. The patient will require routine 3 month exchanges of the PCN catheter while definitive management of her bladder calculus and indwelling right NU stent is developed. We would be able to facilitate the same if desired. A referral from her outpatient Urologist should be placed if the patient desires changes to be performed with us. Fluoroscopy time and dose Total Fluoro Time: 8.2 mins Total dose 727 mGy Total DAP 80875.2 - ?Gy/m2 Contrast used Contrast used: Omnipaque_300 30 ml's Moderate sedation was provided From 14:09:00 to 14:45:57 Moderate Sedation Agent Dose Route Time By Fentanyl 25 mcg IV 14:09:20 CB Versed 1 mg IV 14:09:24 CB Fentanyl 50 mcg IV 14::53 CB Versed 1 mg IV 14::57 CB Fentanyl 25 mcg IV 14:21:02 CB Fentanyl 50 mcg IV 14:28:55 CB Versed 1 mg IV 14:29:00 CB Signed By Claudia Roberts MD On 01/24/2023 16:24:07 Claudia Roberts MD Dictated By: Claudia Roberts MD Dictated Date/Time: 01/24/23 1:52 pm Reviewed By: Claudia Roberts MD Signed By: Claudia Roberts MD Signed Date/Time: 01/24/23 1:52 pm Transcribed By: HOLLI Transcribed Date/Time: 01/24/23 1:52 pm Vital Signs Most recent to oldest [Reference Range]: 1 2 3 Height 159 cm (01/25/23 10:51 AM) 159 cm (01/25/23 7:11 AM) 159 cm (01/25/23 3:56 AM) Weight 90.5 kg (01/24/23 11:55 AM) Oxygen Saturation [94-100 %] 100 % (01/25/23 10:51 AM) 96 % (01/25/23 7:11 AM) 97 % (01/25/23 3:56 AM) Pulse Rate [55-90 bpm] 91 bpm *H* (01/25/23 10:51 AM) 115 bpm *H* (01/25/23 7:11 AM) 111 bpm *H* (01/25/23 3:56 AM) Body Mass Index [18.5-24.99 kg/m2] 35.8 kg/m2 *>HHI* (01/24/23 11:55 AM) Blood Pressure [90-138/55-84 mm Hg] 123/81mm Hg (01/25/23 10:51 AM) 125/83mm Hg (01/25/23 7:11 AM) 127/92mm Hg (01/25/23 3:56 AM) Respiratory Rate [16-30 br/min] 18 br/min (01/25/23 10:51 AM) 18 br/min (01/25/23 8:39 AM) 18 br/min (01/25/23 7:11 AM) Temperature [96.8-100.4 DegF] 97.8 DegF (01/25/23 10:51 AM) 98.8 DegF (01/25/23 7:11 AM) 97.8 DegF (01/25/23 3:56 AM) Mode of Delivery (Oxygen) Room air (01/25/23 10:51 AM) Room air (01/25/23 7:11 AM) Room air (01/25/23 3:56 AM) Blood pressure sites Arm, right (01/25/23 10:51 AM) Arm, left (01/25/23 7:11 AM) Arm, right (01/25/23 3:56 AM) Temperature Route Oral (01/25/23 10:51 AM) Oral (01/25/23 7:11 AM) Oral (01/25/23 3:56 AM) Dry Weight 90.5 kg (01/24/23 11:55 AM) Weight Obtained Via Bed scale (01/24/23 11:55 AM) Social History Social History Type Response Smoking Status 10 or more cigarette s (1/2 pack or more)/day in last 30 days entered on: 12/16/22 Sex Admission evaluation note * Joel Montano DO: PERFORM, MODIFY, MODIFY Event Display: Admission Note Authored Date: [id number] Patient: ??MICHELLE CEBALLOS ? Age:??42 Years?Sex:??Female?:??1980?? History of Present Illness Patient is a 42-year-old female with past medical history of nephrolithiasis status post right percutaneous nephrostomy placement with IR December 18, 2022 for hydroureteronephrosis who presented tothe emergency department 01/24/2023 at [facility] with concern of pain and question of nephrostomy tube displacement.?? Patient reports over the last couple days she has noted pain in the right side and is concerned that her nephrostomy tube has moved.?? There is also reported some drainage around the area. ?? Most recent vitals show blood pressure 116/71, pulse 79, O2 saturation 100% on room air. H&H of 9.9 and 31.8, creatinine of 1.7, calcium 11.2.?? Urine shows marked turbid with 2+ albumin 2+ hemoglobin 3+ leukocyte and greater than 182 WBCs. Urine negative.?? CT abdomen pelvis shows tip of the percutaneous right nephrostomy tube is in the renal cortex but not clearly in the collecting system.?? Positioning right ureteral stent satisfactory.?? The right kidney shows hydronephrosis despite presence of nephrostomy tube and stentalong with thickening of the urothelium indicating inflammation/infection.?? Atrophy of the right renal cortex.?? Small nonobstructing stone.?? No associated abscess.?? Left kidney shows moderate hydronephrosis and hydroureter down to the bladder without obstructing ureteral mass or stone.?? The bladder has an unusually large stone measuring 7 cm in diameter.?? Stable right adrenal adenoma. Emergency department discussed with [facility] urology who recommended transfer for ongoing management. ?? IR order has been placed for IR nephrostomy tube change. ?? At the time of my exam the patient is doing well. ??She reports right-sided flank pain and burning with urination and??frequent urination. ??She denies chest pain, lightheadedness, dizziness, nausea, vomiting, diarrhea, shortness of breath. Review of Systems Please refer to those mentioned in HPI, all other systems reviewed and are negative Objective Measurements?? Height: 159 cm (01/24/23) Weight: 90.5 kg (01/24/23) Dry Weight: 90.5 kg (01/24/23) Body Mass Index:??35.8 kg/m2??Critical (01/24/23) ? Vital Signs?? Temperature: 97.9 DegF (01/24/23 11:55:00) Temperature Route: Oral (01/24/23 11:55:00) Pulse Rate: 79 bpm (01/24/23 11:55:00) Respiratory Rate: 16 br/min (01/24/23 12:14:00) Systolic Blood Pressure: 116 mm Hg (01/24/23 11:55:00) Diastolic Blood Pressure: 71 mm Hg (01/24/23 11:55:00) Blood pressure sites: Arm, left (01/24/23 11:55:00) Mean Arterial Pressure: 86 mm Hg (01/24/23 11:55:00) Pulse Pressure: 45 mm Hg (01/24/23 11:55:00) Oxygen Saturation: 100 % (01/24/23 11:23:00) Mode of Delivery (Oxygen): Room air (01/24/23 11:23:00) Early Warning Score: 2 (01/24/23 12:16:24) ? Physical Exam General:??Patient in no acute distress?? HEENT:??normocephalic, atraumatic. No lymphadenopathy or thyromegaly appreciated. Respiratory:??Adequate respiratory rate and effort on room air. CVS:??regular rate and rhythm. No JVD.?? Abdomen:??soft, non tender, non distended, no organomegaly. Extremities:??no cyanosis, pulses present and equal bilaterally. No edema noted b/l.?? Neuro:??alert and oriented x3. Moving all extremities spontaneously.?? Derm:??Some purulence noted at the site of nephrostomy tube Psych:??Normal mood and normal affect Assessment/Plan Patient is a 42-year-old female with past medical history of nephrolithiasis status post right percutaneous nephrostomy placement with IR December 18, 2022 for hydroureteronephrosis who presented tot emergency department 01/24/2023 at [facility] with concern of pain and question of nephrostomy tube displacement.? Nephrostomy tube??dislodgment History of nephrolithiasis and hydroureteronephrosis Urinary tract infection Possible skin and soft tissue infection Plan: ?Exchange of the nephrostomy tube ?At this time patient is reporting??burning with urination??and UA concerning for infection so we will start ceftriaxone??and get urine culture ??? There is some purulent??discharge at the site of the nephrostomy tube, will cover with vancomycin at this time ??? Hopeful to??tighten antibiotic coverage and hopeful to switch to oral with a short course on discharge ?? GERD: Continue pantoprazole ? Full code Patient case and plan discussed with Dr. Carlito Montano, DO Histories Allergies Allergies ?(Active and Proposed Allergies Only) penicillin? (Severity: Unknown severity, Onset: Unknown) ?Reactions: rash ?Comments: Tolerated piptazo during admission december 2022 ? Past Medical History/Problem List Active Problems??(5) [...] Family History No family history recorded. ? [facility] ?? Medications Home Medications Pantoprazole (pantoprazole 40 mg oral delayed release tablet)?40?Milligram?By Mouth?Daily ? Inpatient Medications Medications (13) Active SCHEDULED: (4) Ceftriaxone 1 Gm Inj (Ceftriaxone Inj) ??1 Gm, IVPB, Every 24 hours Influenza Quad (6mo - 64 yr) Fluzone 0.5mL (Influenza, Quadrivalent Vaccine (Fluzone Quad)) ??0.5 mL, Intramuscular, Once NaCl 0.9% Flush 3ml (NaCL 0.9% Flush) ??3 mL, IV Push, Every 8 hours Vancomycin 1250 mg Inj (Vancomycin IVPB) ??1,250 mg, IVPB, Every 36 hours CONTINUOUS: (0) PRN: (9) Acetaminophen 325 mg Tablet (Acetaminophen Tablet) ??650 mg, By Mouth, Every 4 hours Dextromethorphan-Guaifenesin 20 mg-200 mg/10 mL Liqu UD (Robitussin DM Liquid) ??10 mL, By Mouth, Every 4 hours Docusate Sodium 100 mg Capsule (Docusate Sodium Capsule) ??100 mg 1 capsule, By Mouth, 2 times a day Melatonin 3 mg Tablet (Melatonin Tablet) ??3 mg, By Mouth, Daily at bedtime MorPHINE 2 mg Inj Syringe (MorPHINE Inj) ??2 mg, IV Push Slowly, Every 4 hours NaCl 0.9% Flush 3ml (NaCL 0.9% Flush) ??3 mL, IV Push, Every 8 hours Polyethylene Glycol 17 Gm Powder (MiraLax Powder) ??17 Gm 1 pack/packet, By Mouth, Daily Senna Tablet ??8.6 mg 1 tablet, By Mouth, 2 times a day Simethicone 80 mg Chewable Tablet (Simethicone Tablet) ??80 mg, Chew, 3 times a day ? EKG study * Event Display: ECG 12-Lead Authored Date: Please click on pdf link to open report * Event Display: ECG 12-Lead Authored Date: Ventricular Rate: 93 BPM Atrial Rate: 93 BPM P-R Interval: 156 ms QRS Duration: 82 ms Q-T Interval: 342 ms QTC Calculation(Bazett): 425 ms P [place]: 58 degrees R [place]: 11 degrees T [place]: 12 degrees Normal sinus rhythm Cannot rule out Anterior infarct , age undetermined Abnormal ECG When compared with ECG of 17-DEC-2022 09:02, Nonspecific T wave abnormality now evident in Anterior leads Confirmed by HAM GREEN [facility] ([id number]) on 01/25/2023 1:14:35 PM [place] * Mora Agrawal RN: PERFORM, SIGN, VERIFY Event Display: [facility] Authored Date: [id number] Patient: MICHELLE CEBALLOS Age: 42 years Sex: Female : 1980 Associated Diagnoses: None Author: Mora Agrawal RN Pt arrived via [facility] from as a transfer from [facility]. Pt ambulated independently from stretcher to bed. Pt A&O. denies cp, sob, dizziness. Pt reported 7/10 pain in R Lower back. PRN morphine given perorder with good effect. Nephrostomy tube present, without sutures, with CDI dressing over it, not draining. Pt went for procedure to replace nephrostomy. Pt returned to unit, still teary eyed but repo rts improved pain 4/10. Nephrostomy tube draining bloody urine. Safety measures in place, pt educated not to get oob without assistance. Call light within reach. Consult note * Louis Bah: PERFORM Event Display: Consultation Note Authored Date: [id number] Patient: ??MICHELLE CEBALLOS ? Age:??42 Years?Sex:??Female?:??1980?? Chief Complaint/Reason for Consultation Accidental RT PCN removal History of Present Illness LOS: 0 PCP: N/A Consulting Physician: Deanne Gilliland PA-C Attending Physician: Miguel Angel Joaquin MD Reason For Consult: Accidental RT PCN removal ?? This is a 42-year-old female transferred from [facility] for Accidental RT PCN removal. ??She has a past medical history of right nephrolithiasis with stent placement (2018??with Dr. Akhtar) which has not been removed since, now S/P RT PCN placement.??CT scan at [place] showed The tip of the percutaneous right nephrostomy tube is in the renal cortex, RT sided hydro, and a large bladder stone.??She has no recollection of when her PCN was removed, she??started feeling uncomfortable and pain about 2 days ago. She??endorsed drainage from the site and frequency. She denied??hematuria, fevers, urinary discharge. She has not followed up with [facility]. Review of Systems Constitutional:??No weight loss, fever, chills, weakness or fatigue. Respiratory:??No shortness of breath, cough or sputum production. Cardiovascular:??No chest pain, chest pressure or chest discomfort. No palpitations or pedal edema. Gastrointestinal:??No anorexia, nausea, vomiting or diarrhea. No abdominal pain or blood in stool. Genitourinary: frequency, RT flank pain, discharge.??No burning micturition, hematuria, discharge,??urinary frequency or incontinence. Neurologic:??No headache, dizziness, syncope, bladder sensation loss. Objective Measurements?? Height: 159 cm (01/24/23) Weight: 90.5 kg (01/24/23) Dry Weight: 90.5 kg (01/24/23) Body Mass Index:??35.8 kg/m2??Critical (01/24/23) ? Vital Signs?? Temperature: 97.9 DegF (01/24/23 11:55:00) Temperature Route: Oral (01/24/23 11:55:00) Pulse Rate: 79 bpm (01/24/23 11:55:00) Respiratory Rate: 16 br/min (01/24/23 12:14:00) Systolic Blood Pressure: 116 mm Hg (01/24/23 11:55:00) Diastolic Blood Pressure: 71 mm Hg (01/24/23 11:55:00) Blood pressure sites: Arm, left (01/24/23 11:55:00) Mean Arterial Pressure: 86 mm Hg (01/24/23 11:55:00) Pulse Pressure: 45 mm Hg (01/24/23 11:55:00) Oxygen Saturation: 100 % (01/24/23 11:23:00) Mode of Delivery (Oxygen): Room air (01/24/23 11:23:00) Early Warning Score: 2 (01/24/23 12:16:24) ? Pain Scores?? No qualifying data available. ? Intake/Output? No Data Available ? Physical Exam Constitutional: Alert, in no distress. Mental Status: Oriented to person, place and time. Respiratory: Equal and unlabored respiratory effort. Gastrointestinal: Abdomen soft, non-tender, non-distended. Normal bowel sounds. No pulsatile mass. No hepatosplenomegaly. Genitourinary: No costovertebral angle tenderness. The RT PCN is semi in place, there is purulent discharge around the RT PCN site. Assessment/Plan Right flank pain (R10.9):?? Bladder stone (N21.0):?? Hydronephrosis, right (N13.30):??This is a 42-year-old female transferred from [facility] for Accidental RT PCN removal. She has a past medical history of right nephrolithiasis with stent placement ([address] Akhtar) which has not been removed since, now S/P RT PCN placement. She hasnot followed up at [facility]. CT scan at [place] showed The tip of the percutaneous right nephrostomy tube is in the renal cortex, RT sided hydro, and a large bladder stone. She was tachycardic though otherwise stable. Cr 1.7, WBC wnl, UA with significant pyuria. Her PCN site has purulent discharge. Sheshould be started on empiric antibiotics including vanco given purulence. Send urine for culture. IR has been consulted for replacement. I spoke in depth with Dr. Lake of [facility], who stated thathe would personally call the patient and arrange outpatient follow up for removal of PCN and stent.I discussed at length with the patient the??importance of calling the [facility] and gave her the number of the office, as well as the number of PVU if needed. She repeated the importance of following at [facility] and stated she would call. ?? Recommendations: - Empiric abx with vanco - Consult IR, appreciate their help - Outpatient follow up at [facility] - Pt's phone numbers are correct on facesheet. Her contact, Steven has an additional number of [phone] if needed. ?? This patient was discussed with attending physician Dr. Joaquin. In total, chart review, discussion with patient, physical exam, planning took approximately 80 minutes. Histories Allergies Allergies ?(Active and Proposed Allergies Only) penicillin? (Severity: Unknown severity, Onset: Unknown) ?Reactions: rash ?Comments: Tolerated piptazo during admission december 2022 ? Past Medical History/Problem List Active Problems??(5) [...] family history recorded. ? Medications Home Medications Pantoprazole (pantoprazole 40 mg oral delayed release tablet)?40?Milligram?By Mouth?Daily ? Results Recent Labs BLOOD COUNT & DIFF WBC 9.0 k/mm3 ()?? 01/24/2023 02:48 RBC 3.60 m/mm3 (Low)?? 01/24/2023 02:48 Hgb 9.9 Gm/dL (Low)?? 01/24/2023 02:48 Hct 31.8 % (Low)?? 01/24/2023 02:48 MCV 88.3 femtoliters ()?? 01/24/2023 02:48 MCH 27.5 pg ()?? 01/24/2023 02:48 MCHC 31.1 g/dL (Low)?? 01/24/2023 02:48 Platelet Count 452 k/mm3 ()?? 01/24/2023 02:48 RDW-SD 54.2 femtoliters (High)?? 01/24/2023 02:48 MPV 9.5 femtoliters ()?? 01/24/2023 02:48 Nucleated RBC (Automated) 0.0 #/100 WBC'S ()?? 01/24/2023 02:48 Abs. NRBC 0.0 k/mm3 ()?? 01/24/2023 02:48 Abs. Neut 5.4 k/mm3 ()?? 01/24/2023 02:48 Abs. Lymph 2.4 k/mm3 ()?? 01/24/2023 02:48 Abs. Burke 0.6 k/mm3 ()?? 01/24/2023 02:48 Abs. Eo 0.5 k/mm3 (High)?? 01/24/2023 02:48 Abs. Baso 0.1 k/mm3 ()?? 01/24/2023 02:48 Neut % 60.4 % ()?? 01/24/2023 02:48 Lymph % 26.9 % ()?? 01/24/2023 02:48 Burke % 6.7 % ()?? 01/24/2023 02:48 Eos % 5.2 % ()?? 01/24/2023 02:48 Baso % 0.6 % ()?? 01/24/2023 02:48 Imm Gran 0.2 % ()?? 01/24/2023 02:48 Abs. Imm Gran 0.0 k/mm3 ()?? 01/24/2023 02:48 ?? CHEM GENERAL Sodium 140 mmol/L ()?? 01/24/2023 02:48 Potassium 3.8 mmol/L ()?? 01/24/2023 02:48 Chloride 109 mmol/L (High)?? 01/24/2023 02:48 Bicarbonate Level 20 mmol/L (Low)?? 01/24/2023 02:48 Anion Gap 11 ()?? 01/24/2023 02:48 Glucose Level 97 mg/dL ()?? 01/24/2023 02:48 BUN 21 mg/dL (High)?? 01/24/2023 02:48 Creatinine-Blood 1.7 mg/dL (High)?? 01/24/2023 02:48 Estimated GFR Creatinine 39 ML/MIN/1.73 M2 ()?? 01/24/2023 02:48 Calcium 11.2 mg/dL (High)?? 01/24/2023 02:48 ?? HEME OTHER Hold Blue Top SPECIMEN DISCARDED AFTER 4 HOURS. ()?? 01/24/2023 02:48 ?? MISC. CHEMISTRY Hold Gel Top SPECIMEN DISCARDED AFTER 1 WEEK ()?? 01/24/2023 02:48 ?? UA/URINALYSIS Appear/Color, Urine YELLOW ()?? 01/24/2023 02:37 Clarity MARKED TURBIDITY (Abnormal)?? 01/24/2023 02:37 Specific [place], Urine 1.020 ()?? 01/24/2023 02:37 pH, Urine 7.0 ()?? 01/24/2023 02:37 Albumin, Urine 2+ (Abnormal)?? 01/24/2023 02:37 Glucose, Urine NEGATIVE ()?? 01/24/2023 02:37 Ketones, Urine NEGATIVE ()?? 01/24/2023 02:37 Bilirubin, Urine NEGATIVE ()?? 01/24/2023 02:37 Hemoglobin, Urine 2+ (Abnormal)?? 01/24/2023 02:37 Nitrite, Urine NEGATIVE ()?? 01/24/2023 02:37 Leukocyte, Urine 3+ (Abnormal)?? 01/24/2023 02:37 Urobilinogen NORMAL mg/dL ()?? 01/24/2023 02:37 WBC's, Urine >182 /HPF (High)?? 01/24/2023 02:37 Bacteria NEGATIVE HPF ()?? 01/24/2023 02:37 Squamous Epith 3 /HPF ()?? 01/24/2023 02:37 Triple Phosphate SLIGHT /HPF ()?? 01/24/2023 02:37 Mucus SLIGHT /LPF ()?? 01/24/2023 02:37 Hold Urine Culture Testing available 48 hours from time of collection. ()?? 01/24/2023 02:37 ?? URINE OTHER Urine, NEGATIVE (N)?? 01/24/2023 02:37 Est Creatinine Clearance 35.12 mL/min ()?? 01/24/2023 03:13 ? Imaging(s) ?CT Abd/Pelvis W/ IV Contrast Only ?? 01/24/2023 04:05??by Jennifer GREEN, Garcia Carlin ?Kidneys and Ureters: Right Kidney: There is generalized thickening of the renal cortex. There is no evidence of renal mass. 18 mm exophytic cyst. 4 mm nonobstructing stone lower pole. There is moderate hydronephrosis and hydroureter despite the presence of the nephrostomy tube and ureteral stent. This hydronephrosis was present previously. There is generalized thickening of the urothelium of the upper collecting system. This was present previously. There is some streakiness in the perinephric fat. There is thickening of the renal fascia. ? Left Kidney: Normal size. There is no mass or stone within the kidney. There is a 40 mm cyst. There is moderate hydronephrosis and hydroureter extending down to the bladder without obstructing ureteral mass or stone.. This is unchanged since 12/16/2022 but is new since 2019. ?? Bladder: Unusually large bladder stone measuring up to 7 cm. There is only a small amount of additional urine within the bladder. Generalized wall thickening of the bladder.. ? Note * Nalini Patino RN: PERFORM Event Display: Discharge/Transfer Note Hospital Authored Date: [id number] Nursing Discharge Note Entered On: 01/25/2023 15:06 EDT Performed On: 01/25/2023 15:05 EDT by Nalini Patino RN Nursing Discharge Note 2 Discharge Time : 01/25/2023 15:05 EDT Discharge Level of Care at Discharge : Home/[facility] Care Patient Left Unit Via : Wheelchair Patient Accompanied Off Unit with : Responsible adult DC Instructions Provided & Signed by Pt : Yes Patient Understands D/C Instructions : Yes Patient Instructions Discharge Signed : Yes Did Pt have Specialty Bed or Wound Vac : No Nalini Patino RN - 01/25/2023 15:05 EDT * Yenny GREEN, Josh: PERFORM, MODIFY Event Display: Discharge/Transfer Note Hospital Authored Date: [id number] Patient: ??LIN, MICHELLE ? Age:??42 Years?Sex:??Female?:??1980?? Patient Information Discharge Location: [facility] Primary Care Physician: Admit Date/Time: 01/24/23 11:36 Discharge Date:??01/25/2023 13:09 Discharge Disposition Discharge Disposition: Home: No Services Discharge Diagnosis Bladder stone (N21.0) Hydronephrosis, right (N13.30) Right flank pain (R10.9) ?? _ Discharge Medications Cephalexin (cephalexin monohydrate 250 mg oral capsule)?1?capsule?250?Milligram?By Mouth?4 times a day?for 5?Days Oxycodone (oxyCODONE 5 mg oral tablet)?5?Milligram?1?tablet?By Mouth?Every 6 hours?as needed?for 3?Days?as needed for pain Pantoprazole (pantoprazole 40 mg oral delayed release tablet)?40?Milligram?By Mouth?Daily ? Medications Started Cephalexin Oxycodone PRN Medications Discontinued None Doses Changed None Allergies Allergies ?(Active and Proposed Allergies Only) penicillin? (Severity: Unknown severity, Onset: Unknown) ?Reactions: rash ?Comments: Tolerated piptazo during admission december 2022 ? PCP Follow-Up/Heads-Up Follow up clinically post hospitalization Hospital Course 42-year-old female with past medical history of nephrolithiasis status post right percutaneous nephrostomy placement with IR December 18, 2022 for hydroureteronephrosis who presented to the emergency department 01/24/2023 at [facility] with concern of pain and question of nephrostomy tube displ acement.? Nephrostomy tube??dislodgment History of nephrolithiasis and hydroureteronephrosis Urinary tract infection Possible skin and soft tissue infection ?? Evaluated by interventional radiology- Underwent IR procedure on 01/24/2023 Unable to reposition existing right nephrostomy catheter due to significant patient movement despite moderate sedation and verbal redirection attempts, degree of retraction and tortuous soft tissue course. The malpositioned retracted existing PCN catheter was removed. New 8.5 Fr right PCN catheter placed via existing incision site, similar overall trajectory compared to prior. Catheter care as ordered. ?? The patient will require routine 3 month exchanges of the PCN catheter while definitive management of her bladder calculus and indwelling??right NU stent is developed. IR at [facility] would be able to facilitate the same if desired. ?? Patient was evaluated by Urology. Opined they personally spoke in depth with Dr. [facility], who stated that he would personally call the patient and arrange outpatient follow up for removalof PCN and stent.?? They discussed at length with the patient the??[facility], as well as the number of PVU if needed. ?? Given the reporting of discharge at the old PCN site but no reporting of the same by the IR procedure note, less likely a skin infection. Pt did report urinary symptoms and based on prior cultures, discussed with antimicrobial advise andwill discharge her on cephalexin. ?? GERD: Continue pantoprazole ?? CKD stage III- stable renal function. ?? 1cm perforated prepyloric ulcer S/p exploratory laparotomy with primary repair of prepyloric ulcer and omental buttress on 12/17/2022 ?? Patient seen and examined at bedside States she is well versed with the nephrostomy tube care. Advised patient regarding establishing care with PCP, f/u with Urology as outpatient. Explained to her about return to ED if any recurrence or worsening of symptoms. Pt is anxious and eager to go home. ?? Gen: AAO*3; RS: CTA b/l; CVS: regular; Abd: Soft Non tender, non distended; Neuro AAO*3, ambulatory; poor dentition; midline ventral abdominal surgical scar healing well; right PCN tube functioning well, site has mild erythema but no discharge noted,??dressing in place Objective Measurements?? Height: 159 cm (01/25/23) Weight: 90.5 kg (01/24/23) Dry Weight: 90.5 kg (01/24/23) Body Mass Index:??35.8 kg/m2??Critical (01/24/23) ? Vital Signs?? Temperature: 97.8 DegF (01/25/23 10:51:00) Temperature Route: Oral (01/25/23 10:51:00) Pulse Rate:??91 bpm??High (01/25/23 10:51:00) Respiratory Rate: 18 br/min (01/25/23 10:51:00) Systolic Blood Pressure: 123 mm Hg (01/25/23 10:51:00) Diastolic Blood Pressure: 81 mm Hg (01/25/23 10:51:00) Blood pressure sites: Arm, right (01/25/23 10:51:00) Mean Arterial Pressure: 95 mm Hg (01/25/23 10:51:00) Pulse Pressure: 42 mm Hg (01/25/23 10:51:00) Oxygen Saturation: 100 % (01/25/23 10:51:00) Mode of Delivery (Oxygen): Room air (01/25/23 10:51:00) Early Warning Score: 2 (01/25/23 10:51:59) ? Consultants Armando GREEN, Miguel Angel Ashraf Pending Results Urine Culture ordered on 01/24/2023 Follow-Up Appointments Added Follow Up ?Time Frame ?Comments Buzzcristo Priyaroxanne?1 to 2 weeks?PLEASE CALL OFFICE TO SCHEDULE AN APPOINTMENT Post Discharge Care Diet: ??Renal diet ?? Activity: ??Ambulate with assistance 3 times a day unless otherwise specified ?? Wound Care: ??Nephrostomy tube care ?? Code Status: ??Full Resuscitation ?? Condition: ??Fair ?? Prognosis: ??Fair ?? Discharge ?01/25/23 13:06:00 EDT Discharge Prescriptions ?ePrescribed, 01/25/23 13:06:00 EDT 40??minutes spent on discharge * Nalini Patino RN: PERFORM Event Display: Patient Education/Instruction Authored Date: [id number] Inpatient Adult Discharge Instructions [place] [id number] Name: MICHELLE CEBALLOS : 1980 Visit: 01/24/2023 11:36:00 Current Date: 01/25/2023 13:09 Account: [id number] Inpatient Adult Discharge Instructions We would like [...] and their families. Surveys are administered by [employer] ?? If further treatment with your primary care physician or another doctor is recommended, it is important for you to keep the appointment. Call your primary care physician or return to the Emergency Department immediately if your condition worsens, fails to improve, or new symptoms develop. If you need to find a doctor, you can call [facility] Link for a referral at [phone] or toll free at [phone] or log in to [email or web address].. ?? [facility], in keeping with [facility] guidance, no longer requires face masks [...] a health care felix of your choosing. [employer] is a website that allows you to securely view your medical information including your hospital discharge summary, office visit summaries, medications and follow-up visits. You can also request appointments, renew medications, and request access to your medical information using a health care felix of your choosing, or just ask a question. You can enroll at [email or web address] or register during your next office visit. You have been discharged from [facility], Patient Care Unit: D3B. If you have any questions regarding these instructions after you leave, please call us and we will be happy to assist you. [facility] Your Care Team Attending Physician Yenny GREEN, Josh Consulting Providers Claudia Roberts MD Discharging Providers Yenny GREEN, Josh Reason for Admission NEPHROSTOMY TUBE DISLODGEMENT Your Diagnosis Hydronephrosis, right Bladder stone Right flank pain Tests Performed Below is a partial list of the tests performed during your hospitalization. You may have had other tests and procedures not included in this list. Please discuss all test results with your provider. BUN CBC Creatinine Electrolytes Magnesium Level IR Tubes and Drains IR US Images?-- Results Pending -- You will be contacted within 72 hours with your results. Primary Care Provider Not on Staff, PCP Advance Directive Health Care Proxy on File No Discharge Vitals Temperature: 97.8 DegF Height: 159 cm Pulse Rate:??91 bpm??High Weight: 90.5 kg Respiratory Rate: 18 br/min Body Mass Index:??35.8 kg/m2??Critical Systolic Blood Pressure: 123 mm Hg Body surface area: 2 Diastolic Blood Pressure: 81 mm Hg ?? Oxygen Saturation: 100 % ?? Studies Pending All tests and labs ordered during this hospital stay have been completed unless listed below. Please discuss all pending results with your provider listed above in these instructions. ?? Add On Lab Order IR US Images Urine Culture What to do next Instructions From Your Doctor Discharge Orders Diet:??Renal diet Activity:??Ambulate with assistance 3 times a day unless otherwise specified Wound Care:??Nephrostomy tube care Code Status:?? Full Resuscitation Condition:??Fair Prognosis:??Fair You Need to Schedule the Following Appointments Follow Up with??[place] When:??Within 1 to 2 weeks Why: PLEASE CALL OFFICE TO SCHEDULE AN APPOINTMENT Where: [address] [place] [address] [place] [address] Business (1) Discharge Medications MICHELLE CEBALLOS :1980 Visit Date:01/24/2023 Medications: Please continue your medications until treatment is completed or stopped by your provider. Medications not listed below should be discontinued. Discuss any questions related to medications with your provider. What How Much When Instructions Next Dose New Amoxicillin-Clavulanate (Augmentin 500 mg-125 mg oraltablet) 1 tab(s) Oral Every 8 hours Duration: 7 Days Pickup at [facility] 3 01/25/23 3x/day New Oxycodone (oxyCODONE 5 mg oral tablet) 1 tab(s) Oral Every 6 hours as needed for as needed for pain Duration: 3 Days Pickup at [facility] 3 as needed Unchanged Pantoprazole (pantoprazole 40 mg oral delayed release tablet) 40 Milligram Oral Daily 01/26/23 Pharmacy Information [facility] 3: [address], [place] [id number] [phone] Test Results Below is a partial list of the most recent Laboratory test results done prior to this discharge. You may have had other tests and procedures not included in this list. Please discuss all test resultswith your provider. Est Creatinine Clearance - 37.98 mL/min (01/25/2023) BUN (01/25/2023) ???BUN - 13 mg/dL CBC (01/25/2023) ???WBC - 7.9 k/mm3???RBC - 3.30 m/mm3???Hgb - 9.0 Gm/dL???Hct - 29.6 %???MCV - 89.7 femtoliters???MCH - 27.3 pg???MCHC - 30.4 g/dL???Platelet Count - 387 k/mm3???RDW-SD - 54.4 femtoliters???MPV - 10.0 femtoliters???Nucleated RBC (Automated) - 0.0 #/100 WBC'S???Abs. NRBC - 0.0 k/mm3 Creatinine (01/25/2023) ???Creatinine-Blood - 1.6 mg/dL???Estimated GFR Creatinine - 43 ML/MIN/1.73 M2 Electrolytes (01/25/2023) ???Sodium - 138 mmol/L???Potassium - 4.1 mmol/L???Chloride - 112 mmol/L???Bicarbonate Level - 18 mmol/L???Anion Gap - 8 Magnesium Level (01/25/2023) ???Magnesium - 2.1 mg/dL Immunizations This Visit Given Vaccine Date influenza virus vaccine, inactivated 01/25/2023 Allergies (NKA means No Known Allergies) penicillin??(rash) Problems Active Problems??(5) Acute pyelonephritis?? DYANE (acute kidney injury)?? Calculus of right ureter?? Hydronephrosis of right kidney?? Obese class II?? Education Materials Below is the list of Educational Leaflet Providered with your Discharge Instructions. Valuables and Belongings I fully understand and agree that [facility] accepts no responsibility for all my personal [...] encouraged to send valuables and belongings home. ? Other Discharge Information ? Pulmonary Rehab Status?? Pulmonary Rehab Discharge Status?? [...] are strongly encouraged to quit. Please call [facility] [employer] Link at [phone] or [phone] ([phone]) or log in to [email or web address] for referrals to smoking cessation programs. ?? 988 Suicide & Crisis Lifeline is available 28/10 if you or someone you know needs to find a reason to keep living. By calling 629 you'll be connected to a skilled, trained counselor at a crisis center in your area. INPATIENT DISCHARGE INSTRUCTIONS SIGNATURE PAGE MICHELLE CEBALLOS Location:[facility] Registration Date and Time:01/24/2023 11:36 EDT Primary Care Physician: Not on Staff, PCP Attending Physician: Yenny GREEN, [facility], I FERNANDOMICHELLE EVANS, have received the above patient education materials/instructions and have verbalized understanding. If ambulance or transport services are being used I further acknowledge being given a choice of service. ?? If you need to contact me, please call me at this number: . Patient/Group Exercise Class Instructor Name: Patient/Group Exercise Class Instructor Signature: Relationship to Patient: Witness Name/Signature: Date: * Yenny GREEN, Josh: PERFORM, SIGN, VERIFY Event Display: Patient Education Handout Authored Date: [id number] * Nalini Patino RN: PERFORM Event Display: Patient Education Leaflets Authored Date: [id number] Amoxicillin Oral Tablet ?? [id number] Amoxicillin Oral Tablet Uses For treating bacterial infection. ?? Instructions This medicine may be taken with or without food. Keep the medicine at room temperature. Avoid heat and direct light. It is important that you keep taking each dose of this medicine on time even if you are feeling well. If you forget to take a dose on time, take it as soon as you remember. If it is almost time for thenext dose, do not take the missed dose. Return to your normal schedule. Do not take 2 doses at one time. Tell your doctor and pharmacist about all your medicines. Include prescription and prlk-yer-pwfyvmqechsrhati, vitamins, and herbal medicines. Keep using this medicine for the full number of days that it is prescribed. Do not stop the medicine even if you start to feel better. If you have diabetes and use urine glucose tests, this medicine may cause incorrect results. Pleasecheck with your doctor before making any changes to your diabetes treatment plan. ?? Cautions Tell your doctor and pharmacist if you ever had an allergic reaction to a medicine. Do not use the medication any more than instructed. Please tell your doctor if you have moderate to severe diarrhea while on this medicine. Do not treat the diarrhea with cewv-jgl-qeenxrj diarrhea medicine. Tell the doctor or pharmacist if you are , planning to be , or . Do not start or stop any other medicines without first speaking to your doctor or pharmacist. Do not share this medicine with anyone who has not been prescribed this medicine. ?? Side Effects The following is a list of some common side effects from this medicine. Please speak with your doctor about what you should do if you experience these or other side effects. ??? diarrhea ??? mouth sores or irritation ??? nausea and vomiting ??? stomach upset or abdominal pain Call your doctor or get medical help right away if you notice any of these more serious side effects: ??? severe or persistent abdominal pain ??? severe, watery or bloody diarrhea ??? signs of liver damage (such as yellowing of eye or skin, dark urine, or unusual tiredness) ??? red, burning, or itchyskin ??? yeast infection of mouth ??? vaginal itching or discharge A few people may have an allergic reaction to this medicine. Symptoms can include difficulty breathing, skin rash, itching, swelling, or severe dizziness. If you notice any of these symptoms, seek medical help quickly. ?? Extra Please speak with your doctor, nurse, or pharmacist if you have any questions about this medicine. ?? [email or web address] IMPORTANT NOTE: This document tells you briefly how to take your medicine, but it does not tell youall there is to know about it. Your doctor or pharmacist may give you other documents about your medicine. Please talk to them if you have any questions. Always follow their advice. There is a more complete description of this medicine available in [employer] [place]. Scan this code on your smartphone or tablet or use the web address below. You can also ask your pharmacist for a printout. If you have any questions, please ask your pharmacist. The display and use of this drug information is subject to Terms of Use. Copyright(c) 2022 [employer]. ?? [employer]. All rights reserved. This information is not intended as a substitute for professional medical care. Always follow your healthcare professional's instructions. ?? * Nalini Patino RN: PERFORM Event Display: Patient Education Leaflets Authored Date: [id number] Percutaneous Nephrostomy ?? 16441 Percutaneous Nephrostomy Percutaneous nephrostomy is a procedure where a small tube (catheter) is put through your skin intoyour kidney to drain your urine. This procedure is done by a specially trained healthcare provider called an interventional radiologist. Why percutaneous nephrostomy is done Percutaneous nephrostomy may be needed when a kidney or a tube (ureter) leading from a kidney to your bladder gets blocked. This can happen because of kidney stones, tumors, or another cause. The blockage can cause a backup of urine in the kidney. This procedure is done to stop pain, infection, andkidney damage. ?? Risks of percutaneous nephrostomy All procedures have some risks. Possible risks of this procedure include: ??? Bleeding into or around your kidney or damage to your kidney ??? Blockage of the catheter ??? Blood infection (sepsis) ??? Kidney infection ??? Problems because of the X-ray dye (contrast medium). These include allergic reaction or kidney damage. ??? Skin infection around the catheter site ??? The catheter may need to be replaced if it is used for a long time. The same procedure is used. ??? Urine leak ??? X-ray radiation exposure,??which is considered to be??low level and safe? Getting ready for your procedure Tell your healthcare provider if you: ??? Are allergic to X-ray dye??or any medicines ??? Are ??? Are or think youmay be Tell your healthcare provider??about any recent illnesses, all medical conditions, and??all medicines you take. You may need to stop taking some or all of them before your procedure. This includes: ??? All prescription medicines ??? Any street drugs you may use ??? Herbs, vitamins, and other??supplements? Yudv-saq-kvlriue medicines that don???t need a prescription, including aspirin and ibuprofen ??Also be sure to: ??? Follow any directions you???re given for not eating or drinking before??yourprocedure. ??? Follow any other directions from your healthcare??provider. ??? Plan to have a relative or friend drive you home after your procedure.??You can???t drive yourself. ?? During your procedure ??? You will change into a hospital gown. ??? An IV (intravenous) line is putinto your hand or arm to give you fluids and medicines. You will then lie on your stomach on an X-ray table. You may be given medicine to help you relax and make you feel sleepy. ??? The skin on yourlower back is numbed with an injection of local anesthesia. ??? The radiologist will use CT scan, ultrasound, or fluoroscopy, images as a guide. They will insert a needle through your lower back intoyour kidney. X-ray dye may be injected through this needle into your kidney. This fluid makes your kidney easier to see on X-ray images. The X-ray images can show exactly where your kidney or ureter is blocked. ??? The needle is then replaced with a thin tube called a drainage catheter. The catheter is attached to a drainage bag. This bag collects the urine that drains from your kidney. The catheter may be stitched (sutured) or taped to your skin. This helps keep it in place and stop it from moving. ??? The entire procedure takes about 1 to 2 hours. You will remain in the recovery room until you are completely awake and ready to go home. ?? After your procedure The catheter will stay in place until the problem that caused the urine buildup is treated. This may be for as little as a day or as long as a few weeks or months. The bag is secured to your leg so you can walk around. During the time the catheter is in place you should: ??? Keep the skin around the catheter clean and dry. ??? Be careful not to move or knock the catheter out of place. Make sure that the drainage bag is secured firmly to your leg. ??? Empty the drainage bag often. This keeps theweight of the bag from pulling on the catheter. ??? Your healthcare provider will give you detaileddirections on how to care for your catheter and drainage bag. ?? When to call your healthcare provider Call your healthcare provider if your urine becomes cloudy or smells bad, or??if you develop fever or chills. Follow all directions given to you by your healthcare provider. ?? Last Reviewed Date: 2022 ?? [employer]. All rights reserved. This information is not intended as a substitute for professional medical care. Always follow your healthcare professional's instructions. ?? * Nalini Patino RN: PERFORM Event Display: Patient Education Leaflets Authored Date: [id number] Discharge Instructions for Percutaneous Nephrostomy ?? [id number] Discharge Instructions for Percutaneous Nephrostomy You had a procedure called percutaneous nephrostomy.??This means that urine was drained from your kidney to prevent pain, infection, and kidney damage.??You had the procedure because your kidney or the tube leading from the kidney to the bladder (ureter) was blocked by a kidney stone or tumor, or perhaps due to another problem. The blockage caused a backup of urine in your kidney. A thin, flexible tube (catheter) will stay in place until the problem that caused the buildup of urine has been treated. This may be as soon as a day or as long as weeks to months. The catheter bag is taped to your leg so that you can walk around. Activity ??? Don???t lift anything heavier than?? 10 pounds until your healthcare provider says it???s OK. ??? Don't do any strenuous activities, such as mowing the lawn, vacuuming, playing sports, or anything that will cause your tubing to be pulled or moved. ??? Slowly increase your activity level with short, frequent walks?? 3 to 4 times a day. ??? Don???t drive while you are still taking painmedicine. Wait until your healthcare provider says it???s OK to drive. ?? Home care ??? Eat your normal diet. ??? Drink 8 to 12 (8-ounce) cups of liquid each day unless you were told to limit liquids because of another condition. About 30 to 60 milliliters of urine should drain into the bag each hour. ??? Wear loose, comfortable clothes that won???t pull or kink the catheter tube. ??? Check your dressing often to make sure the tubing is secure. ??? Don???t let the drainage bag hang freely,??or it will pull on the catheter. Keep it secured to your leg or hold it temporarily. ??? Empty the drainage bag often to keep the weight of the bag from pulling on the catheter.o Empty the bag when it is 1/2 to 2/3 full. o Always empty the bag before you go to bed. o Wash your hands before and after emptying the bag. ??? Measure and record the amount and color of the urine in the bag. ??? Gently clean the skin around the catheter with mild soap and warm water. Check the skin for any signs of infection. Pat dry with a clean towel. ??? Change your dressing if it becomes loose, moist, or dirty. Ask your healthcare provider how your skin should be cleaned and which skin barriers and attachment devices to use. Ask someone to help you care for your nephrostomy tube and follow the cleaning instructions. ??? Throw away the used dressing in a plastic bag. ??? If you were asked to stop any medicines before the surgery, ask the healthcare provider when you may start takingthem again. This is especially important in the case of blood thinners (anticoagulants or antiplatelet medicines). ?? Follow-up care Follow up with your healthcare provider, or as advised. If you need to have your nephrostomy tube in place for a time, you will need to schedule an appointment to have the tube changed every 2 to 3 months. Otherwise, you will need to schedule an appointment to have the tube removed. Your healthcareprovider will tell you when this needs to happen. ?? When to call your healthcare provider Call your healthcare provider right away if you have any of these: ??? A catheter that is not draining ??? The catheter comes out (don't try to put it back in.) ??? The catheter partly comes out. There may be a black sapna on the tube to sapna the place where the tube enters the skin. Check to see that the black sapna is next to the skin. If the black sapna isn't next to the skin, the tube has moved.A healthcare provider needs to put it back in. Don't try to put it back in. ??? Pain, redness, or discharge around the catheter ??? Fever of?? 100.4??F ( 38??C) or higher, or as directed by your healthcare provider ??? A noticeable increase or decrease in the amount of urine that drains ??? Cloudy or smelly urine ??? Urine that changes to a pink or red color ??? More pain ??? Severe pain in your side ??? Nausea and vomiting ??? New or worsening symptoms ?? Last Reviewed Date: 2022 ?? [id number] [employer]. All rights reserved. This information is not intended as a substitute for professional medical care. Always follow your healthcare professional's instructions. ?? Patient Care team information Care Team Personnel Name: Mora Luis RN Position: [facility] RN Member Role: Primary Care Nurse Name: Lara Freeman Position: S RN Member Role: Primary Care Nurse Name: Grace Diehl RN Position: S RN Member Role: Primary Care Nurse Name: Violet Wells NP Position: [facility] Associate Professional Member Role: Lifetime Consulting Provider Address: Address: [address] [place], [place] [address] [place], [place] [address] Name: Marv Lino MD Position: [facility] Renal MD Member Role: Lifetime Consulting Physician Address: Address: [address] [place] [address] [address] [facility] [place], [place] [address] Name: Britney Jensen RN Position: S RN Member Role: Primary Care Nurse Name: Krzysztof Aguiar RN Position: S RN Member Role: Primary Care Nurse Name: Not on Staff, PCP Position: [facility] Physician (General Medicine) Member Role: PCP Care Team Related Persons Name: CURRY HOLGUIN Address: [address] [place] [address] Name: GERSON MATHIAS Address: home [address] [place] [address] [address] [place] [address]
--- OUTSIDE RECORDS SUMMARY | 2023-05-20 01:58 | XMS_ITS | Continuity of Care Document ---
Author Name Unknown Organization [facility] ter Address [address] [place] [id number]- Care Team Providers Care Clothing Room Supervisor Name Role Phone Not on Staff, PCP Primary Care Physician Unavail able Encounter [facility] Date(s): 12/20/22 - 01/19/[address] [address]- Attending Physician: Not on Staff, Attending MD Admitting Physician: Not on Staff, Admitting MD Referring Physician: Not on Staff, Referring MD Allergies, Adverse Reactions, Alerts Substance Reaction Severity Status penicillin 1 rash Active 1Tolerated piptazo during admission december 2022 Immunizations Given and Recorded Vaccine Date Status Refusal Reason tetanus/diphtheria/pertussis, acel(Tdap) 04/20/10 Given Medications acetaminophen-HYDROcodone 325 mg-5 mg oral tablet 1-2 tablet, By Mouth, Every 6 hours, PRN for pain, August partial fill [id number], # 12 tablet, 0 Refills, Maintenance, 10/08/18 [...] 12/21/22 13:17:00 EDT, Route to Pharmacy Electronically, [facility], 160, cm, 12/21/22 4:05:00 EDT, Height, 100.1, kg, ... Start Date: 12/21/22 Status: Ordered pantoprazole 20 mg oral delayed release tablet 1 tablet = 20 mg, By Mouth, Daily, # 30 each, 5 Refills, Maintenance, 01/08/23 12:48:00 EDT, EC Tablet, 160, cm, 01/07/23 15:14:00 EDT, Height, 100.1, kg, 12/17/22 3:49:00 EDT, Dry Weight Start Date: 01/08/23 Stop Date: 07/07/23 Status: Ordered pantoprazole 40 mg oral delayed [...] Active Calculus of right ureter Confirmed Active Social History Social History Type Response Smoking Status 10 or more cigarette s (1/2 pack or more)/day in last 30 days entered on: 12/16/22 Sex Patient Care team information Care Team Personnel Name: Mora Luis RN Position: [facility] RN Member Role: Primary Care Nurse Name: Lara Freeman Position: S RN Member Role: Primary Care Nurse Name: Grace Diehl RN Position: S RN Member Role: Primary Care Nurse Name: Violet Wells NP Position: [facility] Associate Professional Member Role: Lifetime Consulting Provider Address: Address: [address] [place] [address] [facility] [address] Name: Marv Lino MD Position: [facility] Renal MD Member Role: Lifetime Consulting Physician Address: Address: [address] [place] [address] [facility] [address] Name: Britney Jensen RN Position: S RN Member Role: Primary Care Nurse Name: Krzysztof Aguiar RN Position: S RN Member Role: Primary Care Nurse Name: Not on Staff, PCP Position: [facility] Physician (General Medicine) Member Role: PCP Care Team Related Persons Name: GRETA HOLGUINIA Address: [address] [place] [address] Name: GERSON MATHIAS Address: [address] [place] [address]
--- OUTSIDE RECORDS SUMMARY | 2023-05-20 01:58 | XMS_ITS | Continuity of Care Document ---
Author Name Unknown Organization [facility] ter Address [address] [place] [id number] Care Team Providers Care Wardrobe Attendant Name Role Phone Megan Rawls MD Primary Care Physician [place] [facility] [place]23[place]23 - 04/29/[address] [id number]- Discharge Disposition: Transferred to short-term general hospit Attending Physician: Farzaneh Hernandez MD Admitting Physician: Joel Hernandez DO Referring Physician: Joel Hernandez DO Allergies, Adverse Reactions, Alerts Substance Reaction Severity Status amoxicillin hives,rash,itching Moderate Active penicillin 1 rash Active 1Tolerated piptazo during admission december 2022 Immunizations Given and Recorded Vaccine Date Status Refusal Reason influenza virus vaccine, inactivated 01/25/23 Give n tetanus/diphtheria/pertussis, acel(Tdap) 04/20/10 Given Medications acetaminophen 325 mg oral tablet 975 mg, By Mouth, 4 times a day, Temperature Greater than 100.5, Refills 0, Maintenance, 04/29/23 12:20:00 EST, Partial fill upon patient request if the prescription is for a schedule II opioid drug. Start Date: 04/29/23 Status: Ordered Acetaminophen Tablet 975 mg, Tablet, By Mouth, Temperature Greater than 100.5, 04/29/23 13:00:00 EST Start Date: 04/29/23 Stop Date: 04/29/23 Status: Completed Dilaudid Inj 1 mg, Injection, IV Push Slowly, Every 4 hours, PRN for Pain , Severe, Routine, 04/23/23 10:04:00 EST Start Date: 04/23/23 Stop Date: 04/30/23 Status: Discontinued Dilaudid Inj 1 mL = 1 mg, IV Push Slowly, Every 4 hours, PRN Pain , Severe, 0 Refills, Maintenance, 04/29/23 12:21:00 EST, Injection, Partial fill upon patient request if the prescription is for a schedule II opioid drug. Start Date: 04/29/23 Status: Ordered Docusate Sodium Capsule 100 mg, 1, capsule, By Mouth, 2 times a day, PRN, Refills 0, Maintenance, Constipation, 04/29/23 12:21:00 EST, Partial fill upon patient request if the prescription is for a schedule II opioid drug. Start Date: 04/29/23 Status: Ordered Heparin 1 mL = 5,000 units, Subcutaneous Injection, 3 times a day, 0 Refills, Maintenance, 04/29/23 12:20:00 EST, Injection, Partial fill upon patient request if the prescription is for a schedule II opioid drug. Start Date: 04/29/23 Status: Ordered levoFLOXacin 250 mg oral tablet = 250 mg, By Mouth, Every 48 hours, 0 Refills, Maintenance, 04/29/23 12:20:00 EST, Tablet, Partial fill upon patient request if the prescription is for a schedule II opioid drug. Start Date: 04/29/23 Status: Ordered melatonin 3 mg oral tablet = 3 mg, By Mouth, Daily at bedtime, PRN Insomnia, 0 Refills, Maintenance, 04/29/23 12:21:00 EST, Tablet, Partial fill upon patient request if the prescription is for a schedule II opioid drug. Start Date: 04/29/23 Status: Ordered MiraLax Powder 1 pack/packet = 17 Gm, By Mouth, Daily, PRN Constipation, 0 Refills, Maintenance, 04/29/23 12:21:00EST, Powder, Partial fill upon patient request if the prescription is for a schedule II opioid drug. Start Date: 04/29/23 Status: Ordered oxyCODONE 5 mg oral tablet 10 mg, Tablet, By Mouth, Hold for: sedation or respiratory rate <14, 04/29/23 15:00:00 EST Start Date: 04/29/23 Stop Date: 04/29/23 Status: Completed oxyCODONE 5 mg oral tablet 10 mg, By Mouth, 3 times a day, Refills 0, Tot. Refills 0, Maintenance, 04/29/23 12:20:00 EST, Partial fill upon patient request if the prescription is for a schedule II opioid drug. Start Date: 04/29/23 Status: Ordered pantoprazole 40 mg oral delayed release tablet = 40 mg, By Mouth, Daily, # 90 capsule, 0 Refills, Maintenance, 12/21/22 13:23:00 EDT, EC Tablet, 160, cm, 12/21/22 4:05:00 EDT, Height, 100.1, kg, 12/17/22 3:49:00 EDT, Dry Weight Start Date: 12/21/22 Status: Ordered Robitussin DM Liquid 10 mL, By Mouth, Every 4 hours, PRN Cough, 0 Refills, Maintenance, 04/29/23 12:20:00 EST, Syrup, Partial fill upon patient request if the prescription is for a schedule II opioid drug. Start Date: 04/29/23 Status: Ordered Vitamin D 36408 iu oral capsule 50,000 units, By Mouth, Every week, Refills 0, Maintenance, 04/29/23 12:20:00 EST, Partial fill upon patient request if the prescription is for a schedule II opioid drug. Start Date: 04/29/23 Status: Ordered Zofran ODTablet = 4 mg, By Mouth, Every 6 hours, PRN Nausea & Vomiting, 0 Refills, Maintenance, 04/29/23 12:21:00 EST, Tablet, Partial fill upon patient request if the prescription is for a schedule II opioid drug. Start Date: 04/29/23 Status: Ordered Problem List Condition Confirmation Course Effective Dates Status H ealth Status Informant DAYNE (acute kidney injury) Confirmed Active Acute pyelonephritis Confirmed Active Hydronephrosis of right kidney Confirmed Active Obese class I Confirmed Active Calculus of right ureter Confirmed Active Results Orders for Microbiology Reports Name Date Urine Culture 04/24/23 Blood Culture 04/23/23 Blood Culture #2 04/23/23 Microbiology Reports TEST:Urine Culture STATUS:Auth (Verified) BODY SITE: SOURCE:KIDNEY COLLECTED DATE/TIME:04/24/23 4:57 PM Urine Culture SPECIMEN DESCRIPTION : KIDNEY URINE, LEFT SPECIAL REQUESTS : NONE CULTURE : >100,000 COL/ML PSEUDOMONAS AERUGINOSA This isolate was identified using Maldi-TOF system These AST results were performed on the VitStyleHop 2 ID and AST system 10-50,000 COL/ML STREPTOCOCCUS AGALACTIAE SERO GROUP B SUSCEPTIBILITY TESTING NOT ROUTINELY PERFORMED ON THIS ISOLATE. This isolate was identified using Maldi-TOF system IF THIS PATIENT IS , PLEASE REFER TO ACOG GUIDELINES (2002) FOR APPROPRIATE SCREENING AND MANAGEMENT OF COLONIZED WOMEN. REPORT STATUS : FINAL 04/26/2023 ORGANISM >100,000 COL/ML PSEUDOMONAS AERUGINOSA This isolate was identified using Maldi-TOF system These AST results were performed on the Vitek 2 ID and AST system METHOD MIN. INHIB. CONC. (MCG/ML) CEFEPIME SUSCEPTIBLE CEFTAZIDIME SUSCEPTIBLE CIPROFLOXACIN SUSCEPTIBLE LEVOFLOXACIN SUSCEPTIBLE MEROPENEM SUSCEPTIBLE PIPERACILLIN/TAZOBAC SUSCEPTIBLE TOBRAMYCIN SUSCEPTIBLE TEST:Blood Culture STATUS:Auth (Verified) BODY SITE: SOURCE:Blood COLLECTED DATE/TIME:04/23/23 10:56 AM Blood Culture SPECIMEN DESCRIPTION : BLOOD NO SITE SPECIAL REQUESTS : NONE CULTURE : NO GROWTH 5 DAYS. REPORT STATUS : FINAL 04/28/2023 TEST:Blood Culture, Second Order STATUS:Auth (Verified) BODY SITE: SOURCE:Blood COLLECTED DATE/TIME:04/23/23 10:56 AM Blood Culture, Second Order SPECIMEN DESCRIPTION : BLOOD NO SITE SPECIAL REQUESTS : NONE CULTURE : NO GROWTH 5 DAYS. REPORT STATUS : FINAL 04/28/2023 Radiology Reports * Exam Date Time Procedure Performing Provider Status 04/24/23 4:03 PM IR End of Case Report Aut h (Verified) IR End of Case Report * Exam Date Time Procedure Performing Provider Status 04/24/23 4:03 PM IR Nephrostomy, Placement Auth (Verified) Notes: (IR Nephrostomy, Placement) Reason For Exam: large bladder calculus, left hydronephrosis, inability to place Howard, and signficant DAYNE. Urology recommends Left nephrostomy tube placemen;Other: IR Nephrostomy, Placement Patient: ARELIS SOUTH Study Date: 04/24/2023 Performing: Corry Escamilla MD Referring: : 1980 Age: 42 Gender: FEMALE Pre-procedure diagnosis and Indication: 42-year-old female with history of right nephrolithiasis status post stent placement (2018) and subsequently right nephrostomy tube which was converted to a right nephroureteral stent on 04/23/2023. Patient has worsening renal function despite right PCNU placement. She has a large bladder calculus and multiple attempts at placement of a Howard catheter have been unsuccessful. Her prior CT demonstrates left hydronephrosis and given worsening renal function, interventional radiology was consulted for urinary decompression of the left kidney via a nephrostomy tube. PROCEDURE: The procedure, risks, and alternatives, were discussed and all questions were answered. Written informed consent obtained. Accompanying paperwork was verified for accuracy. Directed history and physical exam performed prior to the procedure. Medication reconciliation performed by nursing personnel. Procedure was performed using a cap, sterile gown, sterile gloves, a large sterile sheet, hand hygiene and 2% chlorhexidine for cutaneous antisepsis. Conscious Sedation was administered under my supervision, with cardiorespiratory monitoring performed by independent and qualified nursing personnel. Medications and dosages are recorded separately in the electronic medical record. The patient was positioned prone on the table and prepped and draped in usual sterile fashion. A critical pause was performed with assisting personnel just prior to the procedure with the patient's identity confirmed using 2 identifiers, confirming site and side. Prior to the procedure, ultrasound was performed of the left kidney demonstrating moderate hydronephrosis. 7 ml of 1% lidocaine was administered at the puncture site for local anesthesia. Under direct ultrasound guidance, a 21 gauge needle was advanced into a posterior lower pole calyx within the kidney. A small amount of contrast was gently injected to verify location of the needle within the renal collecting system. The urine was cloudy. A short wire was then inserted through the needle into the renal collecting system. The needle was removed and sequential dilatation of the tract was performed. An 8.5 Tanzanian nephrostomy tube was then advanced over the wire until properly positioned within the collecting system. The system was then decompressed and fluoroscopy used to verify appropriate positioning using a small amount of contrast. Subsequently, left antegrade nephrostogram was performed which demonstrates moderate left hydronephrosis and moderate to severe left hydroureter with no passage of contrast into the urinary bladder. The pigtail loop was then formed and the tube was attached to a drainage bag. A sample of urine was collected and sent for cultures and sensitivities. The catheter was secured to the skin with non-resorbable suture and a sterile dressing was applied. The patient tolerated the procedure well with no immediate complication. estimated blood loss was minimal Specimens/samples: urine sample from the left kidney was sent Patient transferred to, [facility] 5 Post procedure instructions sent in envelope with the patient Impression: 1. Pre procedure ultrasound images demonstrate moderate hydronephrosis of the left kidney. 2. Left antegrade nephrostogram demonstrates moderate left hydronephrosis and moderate to severe left hydroureter with no passage of contrast through the left ureterovesical junction into the urinary bladder, which may be related to known large urinary bladder calculus causing an obstruction. 3. Ultrasound and fluoroscopically guided placement of left 8.5 Tanzanian nephrostomy tube, attached to gravity drainage. A sample of cloudy urine was removed and submitted to microbiology. Fluoroscopy time and dose Total Fluoro Time: 3.2 mins Total dose 14 mGy Total DAP 265.29 - ?Gy/m2 Contrast used Contrast used: Omnipaque_300 25 ml's Moderate Sedation Agent Dose Route Time By Fentanyl 50 mcg IV 16:30:29 LC Versed 1 mg IV 16:30:33 LC Fentanyl 50 mcg IV 16:39:26 LC Versed 1 mg IV 16:39:30 LC Fentanyl 25 mcg IV 16:57:43 LC Versed 0.5 mg IV 16:57:46 LC Signed By Corry Escamilla MD On 04/24/2023 17:55:29 Corry Escamilla MD Dictated By: Corry Escamilla MD Dictated Date/Time: 04/24/23 4:03 pm Reviewed By: Corry Escamilla MD Signed By: Corry Escamilla MD Signed Date/Time: 04/24/23 4:03 pm Transcribed By: PATRICIA Transcribed Date/Time: 04/24/23 4:03 pm * Exam Date Time Procedure Performing Provider Status 04/23/23 2:07 PM IR End of Case Report Aut h (Verified) IR End of Case Report * Exam Date Time Procedure Performing Provider Status 04/23/23 2:07 PM IR Nephrostomy Tube Change Auth (Verified) Notes: (IR Nephrostomy Tube Change) Reason For Exam: hydronephrosis;Other: IR Nephrostomy Tube Change Patient: ARELIS SOUTH Study Date: 04/23/2023 Performing: Otis Ayoub MD Referring: : 1980 Age: 42 Gender: FEMALE Pre-procedure diagnosis and Indication: Large bladder calculus. Percutaneous nephrostomy catheter placed in January has pulled out approximately 8 cm. The sutures are clearly too tight. Patient requires access for renal drainage and possibly access to a large bladder stone. Renal failure. Urosepsis. Patient requiring antibiotics and pain meds. Marked deterioration in renal function, creatinine now 6.3, last 01/25/23 it was 1.6 42-year-old female with a history of kidney stones, duodenal perforation, right hydronephrosis status post right nephrostomy, large bladder stones, previously dislodged right nephrostomy, stage III CKD, GERD who presents today with right flank pain and suprapubic pain. She reports a 2 to 3-week history of right flank pain and suprapubic pain described as burning the suprapubic pain is worse with urinating. Exam: Prior to the procedure, the patient was seen and the nature of the procedure explained along with its attendant risks and benefits to the patient . Informed consent was obtained from, the patient . The patient underwent a pre-anesthesia assessment. On completion of this it was determined the patient is suitable for sedation The patient arrived in IR room 2 for a nephrostomy conversion to PCNU PROCEDURE: The patient was positioned prone and secured with arm boards. The site was prepped with chloraprep and draped in the usual sterile fashion. Patient received moderate sedation administered under my direct supervision. Local anesthetic was given and contrast injected into existing tube, and the existing tube was removed . the length of the uretur was measured and 10 FR x 24cm PCNU was inserted contrast injected to check placement of new tube and the tube was secured using 0 prolene suture x 2. The 10 FR x 24cm PCNU was connected to a drainage bag. The sterile field was maintained throughout the procedure and patient tolerated the procedure well with no complications of the procedure Prior to the procedure the patient was seen and reviewed and the nature procedure explained. Consent was obtained. I examined the patient's right nephrostomy tube. This was placed last year. The 2 retention sutures cut out and it has been displaced about 8 cm. I note that the 2 retention sutures are tied very tight no doubt contributing to tension at the suture sites and leading to do subsequent cyutting out and tube displacement. The patient is very tearful and upset. She is in substantial discomfort before we started the procedure. At the end the procedure she was much more comfortable for the last part of the procedure under moderate sedation. Patient was brought to the suite and placed in a semiprone position. Fluoroscopy was performed which demonstrated that the right nephrostomy catheter has pulled back a lot. Contrast was injected. There is no communication with the renal collecting system. Following this injection of local anesthesia the catheter was removed over guidewire and a guidewire used to renegotiate the tract into the renal collecting system. In view of the problems of maintaining adequate access and also the presence of a bladder stone I elected to place a nephroureteral stent for more security and establishing external drainage. Therefore a 24 cm 10.2 Tanzanian nephroureteral stent catheter was inserted over guidewire to a correct position with distal pigtail in the bladder and hproximal pigtail formed in the right renal pelvis. It was attached to a bag for continuing external gravity drainage and I recommend continue external drainage until the bladder stone has been dealt with; if that is going to be the case. I note patient's renal function has deteriorated substantially. Patient did not tolerate the procedure well initially but at the end the procedure we seem to have given her adequate sedation for her to sleep during the last part of the procedure. No complications. estimated blood loss was minimal Specimens/samples: no specimens or samples were sent for this procedure Patient transferred to [place] [id number] Post procedure instructions sent in envelope with the patient Impression: Satisfactory fluoroscopically guided conversion of an existing nephrostomy tube to a nephtoureteral tube. Prior nephrostomy tube displaced due to sutures cutting out. patient tolerated the procedure well with no complications of the procedure Fluoroscopy time and dose Total Fluoro Time: 2.7 mins Total dose 49 mGy Total DAP 498.82 - ?Gy/m2 Contrast used Contrast used: Omnipaque_300 15 ml's Local Anesthetic Lidocaine 1% 10 ml's SQ Moderate sedation was provided From 14:27:15 to 14:57:19 Moderate Sedation Agent Dose Route Time By Fentanyl 50 mcg IV 14:27:15 LC Versed 1 mg IV 14:27:19 LC Fentanyl 50 mcg IV 14:36:03 LC Versed 1 mg IV 14:36:07 LC Fentanyl 50 mcg IV 14:45:30 LC Versed 1 mg IV 14:45:36 LC Fentanyl 25 mcg IV 14:52:06 LC Versed 0.5 mg IV 14:52:13 LC Signed By Otis Ayoub MD On 04/23/2023 15:53:34 Otis Ayoub MD Dictated By: Otis Ayoub MD Dictated Date/Time: 04/23/23 2:07 pm Reviewed By: Otis Ayoub MD Signed By: Otis Ayoub MD Signed Date/Time: 04/23/23 2:07 pm Transcribed By: Pia Transcribed Date/Time: 04/23/23 2:07 pm Vital Signs Most recent to oldest [Reference Range]: 1 2 3 Height 160 cm (04/29/23 11:00 AM) 160 cm (04/29/23 5:51 AM) 160 cm (04/28/23 10:49 PM) Weight 81.5 kg (04/23/23 8:53 AM) Oxygen Saturation [94-100 %] 98 % (04/29/23 11:00 AM) 97 % (04/29/23 5:51 AM) 100 % (04/28/23 10:49 PM) Pulse Rate [55-90 bpm] 91 bpm *H* (04/29/23 11:00 AM) 80 bpm (04/29/23 5:51 AM) 85 bpm (04/28/23 10:49 PM) Body Mass Index [18.5-24.99 kg/m2] 31.84 kg/m2 *>HHI* (04/23/23 8:53 AM) Blood Pressure [90-138/55-84 mm Hg] 101/64mm Hg (04/29/23 11:00 AM) 101/53mm Hg (04/29/23 5:51 AM) 112/72mm Hg (04/28/23 10:49 PM) Respiratory Rate [16-30 br/min] 18 br/min (04/29/23 2:40 PM) 18 br/min (04/29/23 2:40 PM) 18 br/min (04/29/23 2:10 PM) Temperature [96.8-100.4 DegF] 97.5 DegF (04/29/23 11:00 AM) 97.8 DegF (04/29/23 5:51 AM) 97.7 DegF (04/28/23 10:49 PM) Mode of Delivery (Oxygen) Room air (04/29/23 11:00 AM) Room air (04/29/23 5:51 AM) Room air (04/28/23 10:49 PM) Blood pressure sites Arm, left (04/29/23 11:00 AM) Arm, left (04/29/23 5:51 AM) Arm, left (04/28/23 10:49 PM) Temperature Route Oral (04/29/23 11:00 AM) Oral (04/29/23 5:51 AM) Oral (04/28/23 10:49 PM) Dry Weight 89 kg (04/23/23 8:53 AM) Weight Obtained Via Bed scale (04/23/23 8:53 AM) Dry Weight Obtained Via Patient/family s tated (04/23/23 8:53 AM) Social History Social History Type Response Smoking Status 10 or more cigarette s (1/2 pack or more)/day in last 30 days entered on: 12/16/22 Sex History and physical note * Event Display: History and Physical Hospital Authored Date: * Francois Lamas MD: PERFORM, MODIFY Event Display: History and Physical Hospital Authored Date: [id number] Patient: ??ARELIS SOUTH ? Age:??42 Years?Sex:??Female?:??1980?? Chief Complaint/Reason for Consultation Abdominal pain. History of Present Illness arelis Arreola is a 42 year old woman with history of right nephrolithiasis with stent placement ([address] Akhtar) which has not been removed since, now S/P RT PCN placement, previous hospitalization due to dislodgement of nephrostomy tube history of duodenal perforation s/p laparotomy, primary repair of 1cm perforated pre-pyloric ulcer with omental buttress, CKD stage I, GERD??who initially presented to [facility] because of??abdominal pain and concern of??dislodgment of??right nephrostomy tube.?? She was transferred to [facility]??for??further evaluation an d??replacement of the nephrostomy tube.?? I evaluated the patient??SW5. ??Patient is complaining ofsevere lower abdominal pain,??01/14 in intensity.?? Patient reports he was having ongoing abdominalpain for last couple of days. ??He is not great historian. ??Patient reports??has not nephrostomy tube pus came out of days ago and it was leaking.In the ED her Tmax was 99.4, heart rate 149, blood pressure 1 7/86 Medically, she is satting 99% room air.?? CT abdomen pelvis was completed which revealed bilateral hydronephrosis, large bladder stone.?? Percutaneous right nephrostomy with catheter tip partially within the right who renal lower pole cortex.?? She is also found to have leukocytosis 13.0.?? Hemoglobin 8.6 creatinine 6.3, baseline creatinine 1.21.4, bicarb 13, sodium 131, COVID-19 negative, urinalysis nitrite positive, leukocyte positive, WBC more than 182, RBC more than 182, bacteria heavy.?? Patient was transferred to [facility] for nephrostomy tube change and further treatment. Objective Measurements?? Height: 160 cm (04/23/23) Weight: 81.5 kg (04/23/23) Dry Weight: 89 kg (04/23/23) Body Mass Index:??31.84 kg/m2??Critical (04/23/23) ? Vital Signs?? Temperature: 98 DegF (04/23/23 10:00:00) Temperature Route: Oral (04/23/23 10:00:00) Pulse Rate:??107 bpm??High (04/23/23 08:53:00) Heart Rate Monitored:??115 bpm??High (04/23/23 10:00:00) Respiratory Rate:??15 br/min??Low (04/23/23 10:07:00) Systolic Blood Pressure: 108 mm Hg (04/23/23 10:00:00) Diastolic Blood Pressure: 83 mm Hg (04/23/23 10:00:00) Blood pressure sites: Arm, right (04/23/23 10:00:00) Mean Arterial Pressure: 86 mm Hg (04/23/23 08:53:00) Pulse Pressure: 25 mm Hg (04/23/23 10:00:00) Oxygen Saturation: 99 % (04/23/23 10:00:00) Mode of Delivery (Oxygen): Room air (04/23/23 10:00:00) Early Warning Score: 1 (04/23/23 10:37:16) ? Physical Exam Constitutional: Alert, in no distress. Mental Status: Oriented to person, place and time. Head: Normocephalic. Neck: Supple, Full range of motion. Respiratory: Clear to auscultation. No wheezing, rales or rhonchi. Cardiovascular: S1 S2 regular. No murmurs, rubs or gallops. Gastrointestinal: Abdomen soft, lower abdominal tenderness present, non- distended. Normal bowel sounds. No pulsatile mass. No hepatosplenomegaly. Genitourinary: right sided nephrostomy tube, Right renal angle tenderness. Neurologic: Cranial nerves II-XII grossly intact. No focal neurological deficits. Musculoskeletal: No cyanosis or clubbing. No gross deformities. Normal range of motion. Heme/Lymphatics/Immun: Palpation of neck reveals no swelling or tenderness of neck nodes. Palpationof groin reveals no swelling or tenderness of groin nodes. Psychiatric: Normal mood and affect Assessment/Plan arelis Arreola is a 42 year old woman with history of right nephrolithiasis with stent placement ([address] Akhtar) which has not been removed since, now S/P RT PCN placement, previous hospitalization due to dislodgement of nephrostomy tube history of duodenal perforation s/p laparotomy, primary repair of 1cm perforated pre-pyloric ulcer with omental buttress, CKD stage I, GERD??who initially presented to [facility] because of??abdominal pain and concern of??dislodgment of??right nephrostomy tube.?? She was transferred to [facility]??for??further evaluation an d??replacement of the nephrostomy tube and further management.? Sepsis (A41.9):?? Complicated urinary tract infection (N39.0):?? Displacement of nephrostomy tube (T83.022A):?? Hydronephrosis (N13.30):?? Urinary bladder calculus (N21.0):?? Met sepsis criteria.?? Tachycardia, leukocytosis, source urine Patient is complaining of severe lower abdominal pain,??10/10 in intensity.?? Patient reports he was having ongoing abdominal pain for last couple of days.?Patient reports??has not nephrostomy tube pus came out of days ago and it was leaking CT abdomen pelvis was completed which revealed bilateral hydronephrosis, large bladder stone.?? Percutaneous right nephrostomy with catheter tip partially within the right who renal lower pole cortex.?? urinalysis nitrite positive, leukocyte positive, WBC more than 182, RBC more than 182, bacteria heavy.?? lactate: 0.8 Plan: Admit to [facility]. Start IV antibiotics ceftriaxone.?? Patient is penicillin allergy. ??Previously received ceftriaxone. Continue to monitor??if worsening??condition then??need to??broaden the antibiotics. Blood culture ordered. Add on urine culture. Urology consult requested. ??I discussed with??urology PA Mr. Cota??who recommended to put the Howard catheter??and??IR guided right-sided nephrostomy tube change. for pain control: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 04/20/2010 Given * Mayela GREEN, Renata Prado: PERFORM Event Display: Consultation Note Authored Date: [id number] ATTENDING PSYCHIATRIST NOTE: ??On the day of service, ??Molly presented this case to me. I reviewed the chart, interviewed the patient, and discussed the case with Dr. Barnes. ??I agree with the findings, impression, and recommendations as noted below. ??Patient open to psychotherapy for coping skills. ?? 80 min spent reviewing chart, speaking with primary team, obtaining the HPI, assessing for SI,??examining patient, and counseling the patient on??adjustment disorder with anxiety??and treatment options.?? * Belia GREEN, Peggy Ayala: PERFORM, MODIFY Event Display: Consultation Note Authored Date: [id number] Patient: ??ARELIS SOUTH ? Age:??42 Years?Sex:??Female?:??1980?? Chief Complaint/Reason for Consultation DAYNE on CKD, hydronephrosis ?? Consulting Physician: Dr. Lamas History of Present Illness Arelis is a 42-year-old female with a past medical history of??duodenal perforation,??chronic nephrolithiasis, right hydronephrosis status post??nephrostomy??placement, chronic bladder stone,??CKD stage III (baseline creatinine??1.5), GERD who presented on 04/23 with suprapubic pain??and flank pain.?? In the ED, patient was hemodynamically stable,??lab work was remarkable for leukocytosis, elevated potassium to 5.2, metabolic acidosis with a venous blood glucose of??7.2 /, BUN of 42 and creatinine of 6.3, calcium of??11.2 and bicarb of 13.?UA was obtained that was turbid, nitrateand leukocyte positive with hyaline casts??concerning for urinary tract infection.?? CT abdomen??and pelvis was obtained which showed left greater than right hydronephrosis, displacement of the rightnephrostomy catheter??into the??right renal pole, and large bladder with large bladder stone??and mild chronic retroperitoneal and iliac adenopathy.?? Patient Was given ceftriaxone and a 1 L bolus of??normal saline. ??Urology was consulted in the ED who recommended Howard placement, starting patienton vancomycin??and??IR consultation for??replacement of the??dislodged nephrostomy tube. ??As far as the bladder stone,??urology recommended??follow-up outpatient??for surgical removal??with patient's outpatient urologist.? Attempted to see patient x 3 however was down at??IR??guided procedure for replacement of??rightnephrostomy tube. Review of Systems Patient not seen because at IR procedure Objective Vital Signs?? Temperature: 98 DegF (04/23/23 10:00:00) Temperature Route: Oral (04/23/23 10:00:00) Pulse Rate:??111 bpm??High (04/23/23 12:00:00) Heart Rate Monitored:??110 bpm??High (04/23/23 13:00:00) Respiratory Rate: 19 br/min (04/23/23 13:00:00) Systolic Blood Pressure: 115 mm Hg (04/23/23 12:00:00) Diastolic Blood Pressure: 79 mm Hg (04/23/23 12:00:00) Blood pressure sites: Arm, right (04/23/23 12:00:00) Mean Arterial Pressure: 86 mm Hg (04/23/23 08:53:00) Pulse Pressure: 36 mm Hg (04/23/23 12:00:00) Oxygen Saturation: 98 % (04/23/23 13:00:00) Mode of Delivery (Oxygen): Room air (04/23/23 12:00:00) Early Warning Score: 2 (04/23/23 13:21:01) ? Intake/Output? 04/23 08:34 04/23 07:00 04/22 07:00 04/21 07:00 04/20 07:00 ?? 04/23 14:28 04/23 14:28 04/23 06:59 04/22 06:59 04/21 06:59 Intake ?0 ?0 ?0 ?0 ?0 Output ?175 ?175 ?0 ?0 ?0 Net Total ? -175 ? -175 ?0 ?0 ?0 ? Urine Count ?1 ?1 ?0 ?0 ?0 ? Physical Exam Patient not seen because at IR procedure Assessment/Plan Arelis is a 42-year-old female with a past medical history of??duodenal perforation,??chronic nephrolithiasis, right hydronephrosis status post??nephrostomy??placement, chronic bladder stone,??CKD stage III (baseline creatinine??1.5), GERD who presented on 04/23 with suprapubic pain??and flank pain, found to have a UA concerning for??urinary tract infection,??hydronephrosis with??dislodgment of right nephrostomy tube and large bladder stone. ?? DAYNE on CKD??stage III Given patient's acute??rise in creatinine, ??hydronephrosis, and bladder stone??most likely a obstructive etiology for DAYNE.?? However??given??UA concerning for??urinary tract infection??DAYNE may also be secondary to??septic ATN. ?? Recommendations -Daily??electrolytes, creatinine, BUN -Howard catheter for accurate I's and O's and to resolve bladder and??obstruction -IR placement of??right nephrostomy ?? Hypercalcemia Patient has a history of chronic hypercalcemia that was seen on previous labs.?? Hypercalcemia workup was most recently completed in December 2022.?? At that time patient had isolated elevated??PTH??suggestive of primary hyperparathyroidism.?? SPEP was negative and vitamin D levels were within normal limits ?? Recommendations -Repeat PTH??and calcium levels? Metabolic acidosis Hyponatremia Hyperkalemia Metabolic acidosis most likely secondary to urinary obstruction and impaired excretion of sodium hydrogen ions and potassium due??to??Na+/K+ ATPase dysfunction. ?? Recommendations -Start sodium bicarb 150 mEq??at 100 cc/hr -Check??electrolytes daily ?? Peggy Celaya MD [facility]- PGY2 Pager #[phone] ?? Patient was discussed with ??Dolores Histories Allergies Allergies ?(Active and Proposed Allergies Only) amoxicillin? (Severity: Moderate, Onset: Unknown) ?Reactions: hives,rash,itching penicillin? (Severity: Unknown severity, Onset: Unknown) ?Reactions: rash ?Comments: Tolerated piptazo during admission december 2022 ? Past Medical History/Problem List Active Problems??(5) Acute pyelonephritis DAYNE (acute kidney injury) Calculus of right ureter Hydronephrosis of right kidney Obese class I ? Past Surgical History No surgery history [...] Recent Labs BLOOD COUNT & DIFF WBC 13.0 k/mm3 (High)?? 04/23/2023 02:51 RBC 3.37 m/mm3 (Low)?? 04/23/2023 02:51 Hgb 8.6 Gm/dL (Low)?? 04/23/2023 02:51 Hct 28.2 % (Low)?? 04/23/2023 02:51 MCV 83.7 femtoliters ()?? 04/23/2023 02:51 MCH 25.5 pg (Low)?? 04/23/2023 02:51 MCHC 30.5 g/dL (Low)?? 04/23/2023 02:51 Platelet Count 550 k/mm3 (High)?? 04/23/2023 02:51 RDW-SD 61.4 femtoliters (High)?? 04/23/2023 02:51 MPV 8.8 femtoliters (Low)?? 04/23/2023 02:51 Nucleated RBC (Automated) 0.0 #/100 WBC'S ()?? 04/23/2023 02:51 Abs. NRBC 0.0 k/mm3 ()?? 04/23/2023 02:51 Abs. Neut 11.1 k/mm3 (High)?? 04/23/2023 02:51 Abs. Lymph 1.1 k/mm3 ()?? 04/23/2023 02:51 Abs. [place] 0.7 k/mm3 ()?? 04/23/2023 02:51 Abs. Eo 0.1 k/mm3 ()?? 04/23/2023 02:51 Abs. Baso 0.0 k/mm3 ()?? 04/23/2023 02:51 Neut % 85.1 % (High)?? 04/23/2023 02:51 Lymph % 8.1 % (Low)?? 04/23/2023 02:51 [place] % 5.6 % ()?? 04/23/2023 02:51 Eos % 0.4 % ()?? 04/23/2023 02:51 Baso % 0.3 % ()?? 04/23/2023 02:51 Imm Gran 0.5 % ()?? 04/23/2023 02:51 Abs. Imm Gran 0.1 k/mm3 ()?? 04/23/2023 02:51 ?? BLOOD GAS Specimen Type - Blood Gas VENOUS ()?? 04/23/2023 02:51 pH, Venous 7.28 (Low)?? 04/23/2023 02:51 pCO2, Venous 33 mm Hg (Low)?? 04/23/2023 02:51 pO2, Venous <30 mm Hg (Low)?? 04/23/2023 02:51 Bicarbonate, Estimated(Venous) 16 mmol/L (Low)?? 04/23/2023 02:51 ?? CHEM GENERAL Sodium 131 mmol/L (Low)?? 04/23/2023 02:51 Potassium 4.7 mmol/L ()?? 04/23/2023 02:51 Chloride 102 mmol/L ()?? 04/23/2023 02:51 Bicarbonate Level 13 mmol/L (Low)?? 04/23/2023 02:51 Anion Gap 16 ()?? 04/23/2023 02:51 Glucose Level 111 mg/dL (High)?? 04/23/2023 02:51 BUN 42 mg/dL (High)?? 04/23/2023 02:51 Creatinine-Blood 6.3 mg/dL (High)?? 04/23/2023 02:51 Estimated GFR Creatinine 8 ML/MIN/1.73 M2 ()?? 04/23/2023 02:51 Calcium 11.2 mg/dL (High)?? 04/23/2023 02:51 Protein, Total 8.3 Gm/dL (High)?? 04/23/2023 02:51 Albumin 3.6 Gm/dL ()?? 04/23/2023 02:51 AG Ratio 0.8 ()?? 04/23/2023 02:51 Alkaline Phosphatase 135 units/L (High)?? 04/23/2023 02:51 AST (SGOT) <5 units/L ()?? 04/23/2023 02:51 ALT (SGPT) <5 units/L ()?? 04/23/2023 02:51 Bilirubin, Total <0.2 mg/dL ()?? 04/23/2023 02:51 Lactate 0.8 mmol/L ()?? 04/22/2023 20:46 ?? ENDOCRINE/TUMOR MARKER Serum Qual NEGATIVE mIU/mL ()?? 04/22/2023 20:46 ?? HEME OTHER Hold Blue Top SPECIMEN DISCARDED AFTER 4 HOURS. ()?? 04/22/2023 20:46 ?? MISC. CHEMISTRY Hold Gel Top SPECIMEN DISCARDED AFTER 1 WEEK ()?? 04/23/2023 02:51 ?? UA/URINALYSIS Appear/Color, Urine YELLOW ()?? 04/23/2023 04:16 Clarity MARKED TURBIDITY (Abnormal)?? 04/23/2023 04:16 Specific [place], Urine 1.025 ()?? 04/23/2023 04:16 pH, Urine 8.0 ()?? 04/23/2023 04:16 Albumin, Urine 3+ (Abnormal)?? 04/23/2023 04:16 Glucose, Urine NEGATIVE (N)?? 04/23/2023 04:16 Ketones, Urine NEGATIVE (N)?? 04/23/2023 04:16 Bilirubin, Urine NEGATIVE (N)?? 04/23/2023 04:16 Hemoglobin, Urine 3+ (Abnormal)?? 04/23/2023 04:16 Nitrite, Urine POSITIVE (Abnormal)?? 04/23/2023 04:16 Leukocyte, Urine 3+ (Abnormal)?? 04/23/2023 04:16 Urobilinogen NORMAL mg/dL (N)?? 04/23/2023 04:16 WBC's, Urine >182 /HPF (High)?? 04/23/2023 04:16 RBC's, Urine >182 /HPF (High)?? 04/23/2023 04:16 Bacteria HEAVY HPF (Abnormal)?? 04/23/2023 04:16 Squamous Epith 17 /HPF (High)?? 04/23/2023 04:16 Hyaline Cast 31 LPF (High)?? 04/23/2023 02:20 Amorphous Crystals MODERATE /HPF ()?? 04/23/2023 02:20 Triple Phosphate SLIGHT /HPF ()?? 04/23/2023 04:16 Mucus HEAVY /LPF ()?? 04/23/2023 04:16 WBC Clumps HEAVY /HPF ()?? 04/23/2023 04:16 Hold Urine Culture Testing available 48 hours from time of collection. ()?? 04/23/2023 04:16 ?? URINE OTHER Est Creatinine Clearance 9.48 mL/min ()?? 04/23/2023 03:21 ?? VIROLOGY Influenza A PCR NEGATIVE ()?? 04/23/2023 04:16 Influenza B PCR NEGATIVE ()?? 04/23/2023 04:16 RSV PCR NEGATIVE ()?? 04/23/2023 04:16 COVID-19 PCR Specimen Source NASAL ()?? 04/23/2023 09:15 COVID-19 PCR Result NEGATIVE ()?? 04/23/2023 09:15 ? * Jovani Bernal MD I: PERFORM Event Display: Consultation Note Authored Date: [id number] ?? I reviewed the patient's history, examined the patient, and confirmed the above findings as documented by the fellow/resident. I personally formulated the essential elements of the assessment and plan noted above. Dr. Bernal?? * Louis Bah: PERFORM Event Display: Consultation Note Authored Date: Patient: ??ARELIS SOUTH ? Age:??42 Years?Sex:??Female?:??1980?? Chief Complaint/Reason for Consultation Urosepsis History of Present Illness LOS: 0 PCP: N/A Consulting Physician: Francois Lamas MD Attending Physician: Ru Coronado MD Reason For Consult: Accidental RT PCN removal ?? This is a 42-year-old female transferred from [facility] for Accidental RT PCN removal. ??She has a past medical history of right nephrolithiasis with stent placement (2019??with Dr. Akhtar) which has not been removed since, now S/P RT PCN placement.??CT scan at [facility] showed The tip of the percutaneous right nephrostomy tube is in the RT Renal lower pole, LT and??RT sided hydro, leslie large bladder stone. Afebrile. UA is positive, Cr 6.3.??She has no recollection of when her PCN was removed, she??started feeling uncomfortable and pain about 2 weeks??ago. She??endorsed drainage from the site,suprapubic pain,??dysuria,??and frequency. She denied??hematuria, fevers, urinary discharge.?? Review of Systems 10??point review of systems negative unless mentioned above. Objective Measurements?? Height: 160 cm (04/23/23) Weight: 81.5 kg (04/23/23) Dry Weight: 89 kg (04/23/23) Body Mass Index:??31.84 kg/m2??Critical (04/23/23) ? Vital Signs?? Temperature: 98 DegF (04/23/23 10:00:00) Temperature Route: Oral (04/23/23 10:00:00) Pulse Rate:??107 bpm??High (04/23/23 08:53:00) Heart Rate Monitored:??115 bpm??High (04/23/23 10:00:00) Respiratory Rate:??15 br/min??Low (04/23/23 10:07:00) Systolic Blood Pressure: 108 mm Hg (04/23/23 10:00:00) Diastolic Blood Pressure: 83 mm Hg (04/23/23 10:00:00) Blood pressure sites: Arm, right (04/23/23 10:00:00) Mean Arterial Pressure: 86 mm Hg (04/23/23 08:53:00) Pulse Pressure: 25 mm Hg (04/23/23 10:00:00) Oxygen Saturation: 99 % (04/23/23 10:00:00) Mode of Delivery (Oxygen): Room air (04/23/23 10:00:00) Early Warning Score: 1 (04/23/23 10:37:16) ? Pain Scores 1 - 10 Pain Scale Score: 10 (08:57) ? Intake/Output? 04/23 08:34 04/23 07:00 04/22 07:00 04/21 07:00 04/20 07:00 ?? 04/23 11:09 04/23 11:09 04/23 06:59 04/22 06:59 04/21 06:59 Intake ?0 ?0 ?0 ?0 ?0 Output ?175 ?175 ?0 ?0 ?0 Net Total ? -175 ? -175 ?0 ?0 ?0 ? Physical Exam Constitutional: Alert, in no distress. Mental Status: Oriented to person, place and time. Respiratory: Equal and unlabored respiratory effort. Gastrointestinal: Abdomen soft, non-tender, non-distended. Normal bowel sounds. No pulsatile mass. No hepatosplenomegaly. Genitourinary: No costovertebral angle tenderness. The RT PCN is semi in place, there is purulent discharge around the RT PCN site. Assessment/Plan Hydronephrosis (N13.30):?? CKD (chronic kidney disease), stage II (N18.2):?? Acute kidney injury (N17.9):?? Complicated urinary tract infection (N39.0):?? Obstructive uropathy (N13.9):?? Urinary bladder calculus (N21.0):?? Displacement of nephrostomy tube (T83.022A):??This is a 42-year-old female transferred from [facility] for Accidental RT PCN removal. She has a past medical history of right nephrolithiasis with stent placement ([address] Akhtar) which has not been removed since, now S/P RT PCN placement. CT scan at [facility] showed The tip of the percutaneous right nephrostomy tube is in the RT Renal lower pole, LT and RT sided hydro, and a large bladder stone. She was tachycardic though otherwise stable. Cr 6.3, WBC 13, UA with significant pyuria. Her PCN site has purulent discharge. She should be started on empiric antibiotics including vanco given purulence. Send urine for culture. Unclear the cause of her left hydronephrosis which could be secondary to bladder stone versus pyelonephritis versus PEACE. She should have a howard catheter placed. IR has been consulted for replacement. I spoke in depth with Dr. Lake of [facility], who stated that this patient has had a procedure to remove herbladder stone which given its size will take 2-3 hours, however she has no showed her procedures. Ultimately, their plan was to replace PCN, stabilize and have her follow up at [facility] for bladder stone procedure. I discussed at length with the patient the importance of calling the [facility] and gave her the number of the office, as well as the number of PVU if needed. She repeated the importance of f manuel at [facility] and stated she would call. ?? Recommendations: - place howard catheter ??- Empiric abx with vanco ??- Consult IR, appreciate their help ??- Outpatient follow up at [facility] ??- Pt's phone numbers are correct on facesheet. Her contact, Steven has an additional number of [phone] if needed. ?This patient was discussed with attending physician Dr. Coronado. In total, chart review, discussion with patient, physical exam, planning took approximately 80 minutes. Histories Allergies Allergies ?(Active and Proposed Allergies Only) amoxicillin? (Severity: Moderate, Onset: Unknown) ?Reactions: hives,rash,itching penicillin? (Severity: Unknown severity, Onset: Unknown) ?Reactions: rash ?Comments: Tolerated piptazo during admission december 2022 ? Past Medical History/Problem List Active Problems??(5) Acute pyelonephritis DAYNE (acute kidney injury) Calculus of right ureter Hydronephrosis of right kidney Obese class I ? Past Surgical History No surgery history [...] Recent Labs BLOOD COUNT & DIFF WBC 13.0 k/mm3 (High)?? 04/23/2023 02:51 RBC 3.37 m/mm3 (Low)?? 04/23/2023 02:51 Hgb 8.6 Gm/dL (Low)?? 04/23/2023 02:51 Hct 28.2 % (Low)?? 04/23/2023 02:51 MCV 83.7 femtoliters ()?? 04/23/2023 02:51 MCH 25.5 pg (Low)?? 04/23/2023 02:51 MCHC 30.5 g/dL (Low)?? 04/23/2023 02:51 Platelet Count 550 k/mm3 (High)?? 04/23/2023 02:51 RDW-SD 61.4 femtoliters (High)?? 04/23/2023 02:51 MPV 8.8 femtoliters (Low)?? 04/23/2023 02:51 Nucleated RBC (Automated) 0.0 #/100 WBC'S ()?? 04/23/2023 02:51 Abs. NRBC 0.0 k/mm3 ()?? 04/23/2023 02:51 Abs. Neut 11.1 k/mm3 (High)?? 04/23/2023 02:51 Abs. Lymph 1.1 k/mm3 ()?? 04/23/2023 02:51 Abs. [place] 0.7 k/mm3 ()?? 04/23/2023 02:51 Abs. Eo 0.1 k/mm3 ()?? 04/23/2023 02:51 Abs. Baso 0.0 k/mm3 ()?? 04/23/2023 02:51 Neut % 85.1 % (High)?? 04/23/2023 02:51 Lymph % 8.1 % (Low)?? 04/23/2023 02:51 [place] % 5.6 % ()?? 04/23/2023 02:51 Eos % 0.4 % ()?? 04/23/2023 02:51 Baso % 0.3 % ()?? 04/23/2023 02:51 Imm Gran 0.5 % ()?? 04/23/2023 02:51 Abs. Imm Gran 0.1 k/mm3 ()?? 04/23/2023 02:51 ?? BLOOD GAS Specimen Type - Blood Gas VENOUS ()?? 04/23/2023 02:51 pH, Venous 7.28 (Low)?? 04/23/2023 02:51 pCO2, Venous 33 mm Hg (Low)?? 04/23/2023 02:51 pO2, Venous <30 mm Hg (Low)?? 04/23/2023 02:51 Bicarbonate, Estimated(Venous) 16 mmol/L (Low)?? 04/23/2023 02:51 ?? CHEM GENERAL Sodium 131 mmol/L (Low)?? 04/23/2023 02:51 Potassium 4.7 mmol/L ()?? 04/23/2023 02:51 Chloride 102 mmol/L ()?? 04/23/2023 02:51 Bicarbonate Level 13 mmol/L (Low)?? 04/23/2023 02:51 Anion Gap 16 ()?? 04/23/2023 02:51 Glucose Level 111 mg/dL (High)?? 04/23/2023 02:51 BUN 42 mg/dL (High)?? 04/23/2023 02:51 Creatinine-Blood 6.3 mg/dL (High)?? 04/23/2023 02:51 Estimated GFR Creatinine 8 ML/MIN/1.73 M2 ()?? 04/23/2023 02:51 Calcium 11.2 mg/dL (High)?? 04/23/2023 02:51 Protein, Total 8.3 Gm/dL (High)?? 04/23/2023 02:51 Albumin 3.6 Gm/dL ()?? 04/23/2023 02:51 AG Ratio 0.8 ()?? 04/23/2023 02:51 Alkaline Phosphatase 135 units/L (High)?? 04/23/2023 02:51 AST (SGOT) <5 units/L ()?? 04/23/2023 02:51 ALT (SGPT) <5 units/L ()?? 04/23/2023 02:51 Bilirubin, Total <0.2 mg/dL ()?? 04/23/2023 02:51 Lactate 0.8 mmol/L ()?? 04/22/2023 20:46 ?? ENDOCRINE/TUMOR MARKER Serum Qual NEGATIVE mIU/mL ()?? 04/22/2023 20:46 ?? HEME OTHER Hold Blue Top SPECIMEN DISCARDED AFTER 4 HOURS. ()?? 04/22/2023 20:46 ?? MISC. CHEMISTRY Hold Gel Top SPECIMEN DISCARDED AFTER 1 WEEK ()?? 04/23/2023 02:51 ?? UA/URINALYSIS Appear/Color, Urine YELLOW ()?? 04/23/2023 04:16 Clarity MARKED TURBIDITY (Abnormal)?? 04/23/2023 04:16 Specific [place], Urine 1.025 ()?? 04/23/2023 04:16 pH, Urine 8.0 ()?? 04/23/2023 04:16 Albumin, Urine 3+ (Abnormal)?? 04/23/2023 04:16 Glucose, Urine NEGATIVE (N)?? 04/23/2023 04:16 Ketones, Urine NEGATIVE (N)?? 04/23/2023 04:16 Bilirubin, Urine NEGATIVE (N)?? 04/23/2023 04:16 Hemoglobin, Urine 3+ (Abnormal)?? 04/23/2023 04:16 Nitrite, Urine POSITIVE (Abnormal)?? 04/23/2023 04:16 Leukocyte, Urine 3+ (Abnormal)?? 04/23/2023 04:16 Urobilinogen NORMAL mg/dL (N)?? 04/23/2023 04:16 WBC's, Urine >182 /HPF (High)?? 04/23/2023 04:16 RBC's, Urine >182 /HPF (High)?? 04/23/2023 04:16 Bacteria HEAVY HPF (Abnormal)?? 04/23/2023 04:16 Squamous Epith 17 /HPF (High)?? 04/23/2023 04:16 Hyaline Cast 31 LPF (High)?? 04/23/2023 02:20 Amorphous Crystals MODERATE /HPF ()?? 04/23/2023 02:20 Triple Phosphate SLIGHT /HPF ()?? 04/23/2023 04:16 Mucus HEAVY /LPF ()?? 04/23/2023 04:16 WBC Clumps HEAVY /HPF ()?? 04/23/2023 04:16 Hold Urine Culture Testing available 48 hours from time of collection. ()?? 04/23/2023 04:16 ?? URINE OTHER Est Creatinine Clearance 9.48 mL/min ()?? 04/23/2023 03:21 ?? VIROLOGY Influenza A PCR NEGATIVE ()?? 04/23/2023 04:16 Influenza B PCR NEGATIVE ()?? 04/23/2023 04:16 RSV PCR NEGATIVE ()?? 04/23/2023 04:16 COVID-19 PCR Specimen Source NASAL ()?? 04/23/2023 04:16 COVID-19 PCR Result NEGATIVE ()?? 04/23/2023 04:16 ? Imaging(s) ?Other Image ?CT abdomen and pelvis: IMPRESSION: ?? 1. LEFT greater than RIGHT bilateral hydroureteronephrosis. 2. Percutaneous RIGHT nephrostomy with catheter tip partially within the RIGHT renal lower pole cortex. 3. Unchanged large bladder stone surrounding the distal aspect of the RIGHT ureteral stent. 4. Mild circumferential bladder wall thickening surrounding the large bladder stone. 5. Redemonstrated mild retroperitoneal and iliac adenopathy. ? Note * Yaneli Yan RN: PERFORM Event Display: Discharge/Transfer Note Hospital Authored Date: [id number] Nursing Discharge Note Entered On: 04/29/2023 15:04 EST Performed On: 04/29/2023 15:02 EST by Yaneli Yan RN Nursing Discharge Note 2 Discharge Time : 04/29/2023 15:02 EST Discharge Level of Care at Discharge : Short-term Acute Inpatient Name of Receiving Short Term Gen [facility] : [facility] Patient Left Unit Via : Ambulance Patient Accompanied Off Unit with : Responsible adult DC Instructions Provided & Signed by Pt : Yes Patient Understands D/C Instructions : Yes Patient Instructions Discharge Signed : Yes Did Pt have Specialty Bed or Wound Vac : No Yaneli Yan RN - 04/29/2023 15:02 EST * Oliver Watts DO: MODIFY, MODIFY, PERFORM Event Display: Discharge/Transfer Note Hospital Authored Date: Patient: ??ARELIS SOUTH ? Age:??42 Years?Sex:??Female?:??1980?? Patient Information Discharge Location: Primary Care Physician: Megan Rawls MD Admit Date/Time: 04/23/23 08:34 Discharge Disposition Discharge Disposition: Transfer to[facility]??Hospital Discharge Diagnosis Acute kidney injury (N17.9) CKD (chronic kidney disease), stage II (N18.2) Complicated urinary tract infection (N39.0) Displacement of nephrostomy tube (T83.022A) Hydronephrosis (N13.30) Hypercalcemia (E83.52) Metabolic acidosis (E87.20) Obstructive uropathy (N13.9) Sepsis (A41.9) Urinary bladder calculus (N21.0) ?? _ Discharge Medications Acetaminophen (acetaminophen 325 mg oral tablet)?975?Milligram?By Mouth?4 times a day?Temperature Greater than 100.5 Docusate (Docusate Sodium Capsule)?100?Milligram?1?capsule?By Mouth?2 times a day?as needed?Constipation Ergocalciferol (Vitamin D 29425 iu oral capsule)?50,000?unit(s)?By Mouth?Every week Guaifenesin/Dextromethorphan (Robitussin DM Liquid)?10?Milliliter?By Mouth?Every 4 hours?as needed?Cough Heparin?1?Milliliter?5,000?unit(s)?Subcutaneous Injection?3 times a day Hydromorphone (Dilaudid Inj)?1?Milliliter?1?Milligram?IV Push Slowly?Every 4 hours?as needed?Pain , Severe Levofloxacin (levoFLOXacin 250 mg oral tablet)?250?Milligram?By Mouth?Every 48 hours Melatonin (melatonin 3 mg oral tablet)?3?Milligram?By Mouth?Daily at bedtime?as needed?Insomnia Ondansetron (Zofran ODTablet)?4?Milligram?By Mouth?Every 6 hours?as needed?Nausea& Vomiting Oxycodone (oxyCODONE 5 mg oral tablet)?10?Milligram?By Mouth?3 times a day Pantoprazole (pantoprazole 40 mg oral delayed release tablet)?40?Milligram?By Mouth?Daily Polyethylene Glycol 3350 (MiraLax Powder)?1?pack/packet?17?gram?By Mouth?Daily?as needed?Constipation ? Medications Started Levaquin Oxycodone Dilaudid PRN Zofran PRN Pantoprazole Medications Discontinued none Doses Changed none Allergies Allergies ?(Active and Proposed Allergies Only) amoxicillin? (Severity: Moderate, Onset: Unknown) ?Reactions: hives,rash,itching penicillin? (Severity: Unknown severity, Onset: Unknown) ?Reactions: rash ?Comments: Tolerated piptazo during admission december 2022 ? Hospital Course Arelis oSuth is a 42 year old woman with history of right nephrolithiasis with stent placement ([address] Akhtar) which has not been removed since, now S/P RT PCN placement, previous hospitalization due to dislodgement of nephrostomy tube history of duodenal perforation s/p laparotomy, primaryrepair of 1cm perforated pre-pyloric ulcer with omental buttress, CKD stage I, GERD who initially presented to [facility] because of abdominal pain and concern of dislodgment of right nephrostomy tube. Should??be noted that many attempts were made by outpatient providers to follow up with her for intervention.??She was transferred to [facility] for further evaluation andreplacement of the nephrostomy tube and further management. On 04/24/23 she required L nephrostomy catheter due to worsening DAYNE. Renal function did improve following this intervention. Levaquin was started on 04/26/23 given sensitivities of urine culture (Pseudomonas and Strep A). Transferred from in [facility] to on 04/26. On S2, pt continued to show improvement in her DANYE though continued to complain of persistent pain that was not responsive to multimodal pain regimen. As of 04/29/23, Urology consulting providers arranged for patient back to [facility] for likely intervention for large bladder calculus.??This was discussed with the [facility] urology and attending surgeon Dr. Fausto smith at 0903 04/29/2023.??[facility] the patient while maintaining her on all renal precautionary measures, all IV antibiotics, and plan for immediate consultation of urology upon transfer.??Primary urology group can then make surgical planning for the patient for 7 cm bladder calculus and retained stent.??Bilateral percutaneous nephrostomy tubes can also be managed at this time as well which will bemaintained to gravity. Pt felt good about this plan, all meds were continued. ?? Objective ?? Sepsis (A41.9):?? Complicated urinary tract infection (N39.0):?? Displacement of Right nephrostomy tube (T83.022A):?? bilateral Hydronephrosis (N13.30):??/ bilateral hydroureteronephrosis Urinary bladder calculus (N21.0):?? underwent replacement of dislodged Right nephrostomy with Right nephroureteral catheter by IR 04/23/23 septic from urinary source-??with complicated UTI, with tachycardia, leucocytosis U/A showed significant pyuria and nitrite positive, and heavy bacteriuria blood c/s negative Having severe pain to lower abdomen. Plan: -urine c/s growing Pseudomonas and Strep agalactiae, sensitive to Levaquin which we started 04/26/22(renally dosed) -Continue hydromorphone 1mg IV Q4H PRN. -Start Oxycodone scheduled, increased from 5mg TID to 7.5mg TID in response to complaints of ongoing pain. Also scheduled Tylenol. -Per Urology, preference is to transfer pt to [place] where providers are more familiar with her caseand have more availability for surgical intervention. ?? Acute kidney injury (N17.9):?? CKD (chronic kidney disease), stage II (N18.2):?? Obstructive uropathy (N13.9):?? Metabolic acidosis (E87.20):?? Baseline creatinine 1.3-1.4. creatinine significantly worse acutely??- to peak creatinine??of 6.7. renal following also has metabolic acidosis- and was on bicarb drip, bicarb drip stopped 04/25. howard catheter placement multiple attempts were unsuccessful. also has left sided hydroureteronephrosis d/w Urology and Urology recommended Left sided nephrostomy.?Urology continuing to follow. underwent urgent IR placement of left nephrostomy catheter on 04/24/23, given worsening DAYNE. Now creatinine downtrending Plan: -Monitor renal function - improving steadily ?? Hypercalcemia (E83.52 with elevated PTH-?? likely primary hyperparathyroidism previous SPEP 12/28 was normal vitamin D level was low (not elevated) Plan: -Follow up outpatient ?? Anemia - appears to be anemia of chronic inflammation based on iron studies, ferritin >200 - monitor, and may be worsened by sepsis ?? VTE Prophylaxis:??heparin Code Status:??full code OMN- Severe DAYNE,?? sepsis. s/p b/l nephrostomy tubes, pain difficult to control ? Vital Signs?? Temperature: 97.5 DegF (04/29/23 11:00:00) Temperature Route: Oral (04/29/23 11:00:00) Pulse Rate:??91 bpm??High (04/29/23 11:00:00) Respiratory Rate: 18 br/min (04/29/23 11:00:00) Systolic Blood Pressure: 101 mm Hg (04/29/23 11:00:00) Diastolic Blood Pressure: 64 mm Hg (04/29/23 11:00:00) Blood pressure sites: Arm, left (04/29/23 11:00:00) Mean Arterial Pressure: 76 mm Hg (04/29/23 11:00:00) Pulse Pressure: 37 mm Hg (04/29/23 11:00:00) Oxygen Saturation: 98 % (04/29/23 11:00:00) Mode of Delivery (Oxygen): Room air (04/29/23 11:00:00) Early Warning Score: 2 (04/29/23 11:32:30) ? . Physical Exam General Appearance: The patient is in mild distress due to pain.?? Cardiovascular: RRR S1 and S2 heard with no M/R/G. No JVD. Skin: Some self-inflicted scratch johnson on back (due to itching) Respiratory: ??Breath sounds clear to auscultation bilaterally. No wheezing. Good air movement throughout both lungs. GI: Lower abdominal??tenderness to??palpation.?? MS: ??No edema or erythema in the lower extremities. No wounds seen on the feet. Peripheral sensation intact.?? Neuro: ??No slurred speech. ??Patient seen moving their upper and lower extremities independently. Psych: Alert and oriented x3.??Sad/irritable affect. Consultants Urology - NADIA Mak Renal - Peggy Celaya MD Psychiatry - Steven Paris, DO Pending Results Add On Lab Order ordered on 04/23/2023 Add On Lab Order ordered on 04/24/2023 Add On Lab Order ordered on 04/24/2023 Urine Culture ordered on 04/23/2023 Patient Instructions You were admitted to [facility] for Urologic workup. You were found to have a complicated UTI that required antibiotics, as well as worsening kidney function that required a second nephrostomytube. You also understandably experienced pain which we attempted to address with a fairly robust regimen of acetaminophen and opioids. Your kidney function did improve steadily although there is more room for improvement. On 04/29/23, a transfer was arranged for you back to [facility] where theurologists are more familiar with your case and may be able to operate more quickly to remove both your bladder stone and the retained stent. ? Case and plan discussed with chief resident physician, ??Rasheeda. ?? Oliver Watts DO PGY-1 Pager #[phone] * Yaneli Yan RN: PERFORM Event Display: Patient Education/Instruction Authored Date: [id number] Inpatient Adult Discharge Instructions [address] [address] Name: ARELIS SOUTH : 1980 Visit: 04/23/2023 08:34:00 Current Date: 04/29/2023 13:29 Account: [id number] Inpatient Adult Discharge Instructions We would like [...] and their families. Surveys are administered by [employer] ?? If further treatment with your primary care physician or another doctor is recommended, it is important for you to keep the appointment. Call your primary care physician or return to the Emergency Department immediately if your condition worsens, fails to improve, or new symptoms develop. If you need to find a doctor, you can call [facility] [employer] for a referral at [phone] or toll free at [phone]) or log in to [email or web address].. ?? [facility], in keeping with [facility] guidance, no longer requires face masks for [...] a health care felix of your choosing. [employer] is a website that allows you to securely view your medical information including your hospital discharge summary, office visit summaries, medications and follow-up visits. You can also request appointments, renew medications, and request access to your medical information using a health care felix of your choosing, or just ask a question. You can enroll at [email or web address] or register during your next office visit. You have been discharged from [facility], Patient Care Unit: S2. If you have any questions regarding these instructions after you leave, please call us and we will be happy to assist you. [facility] Your Care Team Attending Physician Mary GREEN, Farzaneh Consulting Providers Gil GREEN, Anirudh Campbell; Bonnie Nur MA; Anitra GREEN, Otis Doran; Javier GREEN, Sikp Ayala; Belia GREEN, Peggy Jamie Discharging Providers Oliver Watts DO Reason for Admission RENAL FAILURE UTI DISLODGE NEPHROSTOMY TUBE Your Diagnosis Sepsis Complicated urinary tract infection Displacement of nephrostomy tube Hydronephrosis Urinary bladder calculus Acute kidney injury CKD (chronic kidney disease), stage II Obstructive uropathy Metabolic acidosis Hypercalcemia Tests Performed Below is a partial list of the tests performed during your hospitalization. You may have had other tests and procedures not included in this list. Please discuss all test results with your provider. 25OH VITAMIN D Basic Metabolic Panel BUN Calcium Level CBC CBC w/ Differential COVID-19 (2019 Novel Coronavirus) PCR COVID-19, RSV, and Flu A/B, Rapid PCR Creatinine Electrolytes FERRITIN FOLIC ACID Glucose Level Ionized Calcium IRON & TIBC Phosphorus Level PTH Intact TRANSFERRIN VITAMIN B12 IR Generic Order Primary Care Provider Megan Rawls MD Advance Directive Health Care Proxy on File No Patient refuses to discuss Discharge Vitals Temperature: 97.5 DegF Height: 160 cm Pulse Rate:??91 bpm??High Weight: 81.5 kg Respiratory Rate: 18 br/min Body Mass Index:??31.84 kg/m2??Critical Systolic Blood Pressure: 101 mm Hg Body surface area: 1.9 Diastolic Blood Pressure: 64 mm Hg ?? Oxygen Saturation: 98 % ?? Studies Pending All tests and labs ordered during this hospital stay have been completed unless listed below. Please discuss all pending results with your provider listed above in these instructions. ?? Add On Lab Order Urine Culture What to do next Instructions From Your Doctor You were admitted to [facility] for Urologic workup. You were found to have a complicated UTI that required antibiotics, as well as worsening kidney function that required a second nephrostomytube. You also understandably experienced pain which we attempted to address with a fairly robust regimen of acetaminophen and opioids. Your kidney function did improve steadily although there is more room for improvement. On 04/29/23, a transfer was arranged for you back to [facility] where theurologists are more familiar with your case and may be able to operate more quickly to remove both your bladder stone and the retained stent. Discharge Orders Discharge Medications ARELIS SOUTH :1980 Visit Date:04/23/2023 Medications: Please continue your medications until treatment is completed or stopped by your provider. Medications not listed below should be discontinued. Discuss any questions related to medications with your provider. What How Much When Instructions Next Dose New Acetaminophen (acetaminophen 325 mg oral tablet) 975 Milligram Oral 4 times a day Temperature Greater than 100.5 ?? 04/29/23 1930 New Docusate (Docusate Sodium Capsule) 100 Milligram Oral Twice a day as needed for Constipation as needed New Ergocalciferol (Vitamin D 42297 iu oral capsule) 50,000 unit(s) Oral Every week 05/03/23 9am New Guaifenesin/ Dextromethorphan (Robitussin DM Liquid) 10 Milliliter Oral Every 4 hours as needed for Cough as needed New Heparin 5,000 unit(s) Subcutaneous Injection 3 times a day 04/29/23 10pm New Hydromorphone (Dilaudid Inj) 1 Milligram IV Push Slowly Every 4 hours as needed for Pain , Severe as needed New Levofloxacin (levoFLOXacin 250 mg oral tablet) 250 Milligram Oral Every 48 hours 04/29/23 4pm New Melatonin (melatonin 3 mg oral tablet) 3 Milligram Oral Daily at Bedtime as needed for Insomnia as needed New Ondansetron (Zofran ODTablet) 4 Milligram Oral Every 6 hours as needed for Nausea & Vomiting as needed New Oxycodone (oxyCODONE 5 mg oral tablet) 10 Milligram Oral 3 times a day 04/29/23 8pm New Polyethylene Glycol 3350 (MiraLax Powder) 17 gram Oral Daily as needed for Constipation as needed Unchanged Pantoprazole (pantoprazole 40 mg oral delayed release tablet) 40 Milligram Oral Daily 04/30/23 9am Test Results Below is a partial list of the most recent Laboratory test results done prior to this discharge. You may have had other tests and procedures not included in this list. Please discuss all test resultswith your provider. Est Creatinine Clearance - 15.08 mL/min (04/29/2023) 25OH VITAMIN D (04/24/2023) ???25 OH-Vitamin D Level - 6.0 ng/mL Basic Metabolic Panel (04/29/2023) ???Sodium - 138 mmol/L???Potassium - 4.3 mmol/L???Chloride - 106 mmol/L???Bicarbonate Level - 22 mmol/L???Anion Gap - 10???Glucose Level - 83 mg/dL???BUN - 22 mg/dL???Creatinine-Blood - 4.1 mg/dL???Estimated GFR Creatinine - 13 ML/MIN/1.73 M2???Calcium - 11.2 mg/dL BUN (04/25/2023) ???BUN - 39 mg/dL Calcium Level (04/25/2023) ???Calcium - 9.6 mg/dL CBC (04/29/2023) ???WBC - 6.5 k/mm3???RBC - 3.12 m/mm3???Hgb - 8.0 Gm/dL???Hct - 26.1 %???MCV - 83.7 femtoliters???MCH - 25.6 pg???MCHC - 30.7 g/dL???Platelet Count - 508 k/mm3???RDW-SD - 58.4 femtoliters???MPV - 8.8femtoliters???Nucleated RBC (Automated) - 0.0 #/100 WBC'S???Abs. NRBC - 0.0 k/mm3 CBC w/ Differential (04/25/2023) ???WBC - 7.0 k/mm3???RBC - 2.85 m/mm3???Hgb - 7.3 Gm/dL???Hct - 23.5 %???MCV - 82.5 femtoliters???MCH - 25.6 pg???MCHC - 31.1 g/dL???Platelet Count - 465 k/mm3???RDW-SD - 58.8 femtoliters???MPV - 8.7femtoliters???Nucleated RBC (Automated) - 0.0 #/100 WBC'S???Abs. NRBC - 0.0 k/mm3???Abs. Neut - 4.9 k/mm3???Abs. Lymph - 1.3 k/mm3???Abs. [place] - 0.5 k/mm3???Abs. Eo - 0.2 k/mm3???Abs. Baso - 0.0 k/mm3???Neut % - 69.9 %???Lymph % - 19.0 %???[place] % - 7.0 %???Eos % - 3.4 %???Baso % - 0.1 %???Imm Gran - 0.6 %???Abs. Imm Gran - 0.0 k/mm3 COVID-19 (2019 Novel Coronavirus) PCR (04/23/2023) ???COVID-19 PCR Specimen Source - NASAL???COVID-19 PCR Result - NEGATIVE COVID-19, RSV, and Flu A/B, Rapid PCR (04/28/2023) ???Influenza A PCR - NEGATIVE???Influenza B PCR - NEGATIVE???RSV PCR - NEGATIVE???COVID-19 PCR Specimen Source - NASAL???COVID-19 PCR Result - NEGATIVE Creatinine (04/25/2023) ???Creatinine-Blood - 6.2 mg/dL???Estimated GFR Creatinine - 8 ML/MIN/1.73 M2 Electrolytes (04/25/2023) ???Sodium - 140 mmol/L???Potassium - 4.1 mmol/L???Chloride - 101 mmol/L???Bicarbonate Level - 27 mmol/L???Anion Gap - 12 FERRITIN (04/24/2023) ???Ferritin Level - 219 ng/mL FOLIC ACID (04/24/2023) ???Folic Acid Level - 6.4 ng/mL Glucose Level (04/25/2023) ???Glucose Level - 79 mg/dL Ionized Calcium (04/25/2023) ???Calcium, Ionized pH Corrected - 1.36 mmol/L IRON & TIBC (04/24/2023) ???Iron Level - 9 mcg/dL???Iron Binding Capacity, Unsaturated - 169 mcg/dL???Iron Binding Capacity,Estimated Total - 178 mcg/dL???% Iron Saturation - 5 % Phosphorus Level (04/24/2023) ???Phosphorus - 5.4 mg/dL PTH Intact (04/24/2023) ???PTH, Intact - 219 pg/mL TRANSFERRIN (04/24/2023) ???Transferrin - 113 mg/dL VITAMIN B12 (04/24/2023) ???Vitamin B12 Level - 268 pg/mL Allergies (NKA means No Known Allergies) amoxicillin??(hives,rash,itching) penicillin??(rash) Problems Active Problems??(5) Acute pyelonephritis?? DAYNE (acute kidney injury)?? Calculus of right ureter?? Hydronephrosis of right kidney?? Obese class I?? Education Materials Below is the list of Educational Leaflet Providered with your Discharge Instructions. Valuables and Belongings I fully understand and agree that [facility] accepts no responsibility for all my personal [...] to send valuables and belongings home. ?? Review of Valuable and Belonging List: With patient Date for Pt to Sign Valuables/Belongings: 04/26/23 01:51:00 ?? Other Discharge Information ? Pulmonary Rehab Status?? [...] are strongly encouraged to quit. Please call [facility] [employer] at [phone] or [phone] ([phone]) or log in to [email or web address] for referrals to smoking cessation programs. ?? 065 Suicide & Crisis Lifeline is available 28/10 if you or someone you know needs to find a reason to keep living. By calling 555 you'll be connected to a skilled, trained counselor at a crisis center in your area. INPATIENT DISCHARGE INSTRUCTIONS SIGNATURE ARELIS MCCULLOUGH Location:[facility] Registration Date and Time:04/23/2023 08:34 EST Primary Care Physician: Curly GREEN, Megan, Attending Physician: Farzaneh Hernandez MD, ARELIS COTTRELL, have received the above patient education materials/instructions and have verbalized understanding. If ambulance or transport services are being used I further acknowledge being given a choice of service. ?? If you need to contact me, please call me at this number: . 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 Signature: Relationship to Patient: Witness Name/Signature: Date: Patient Care team information Care Team Personnel Name: Aidee Maloney RN Position: S RN Member Role: Primary Care Nurse Name: Mora Luis RN Position: S RN Member Role: Primary Care Nurse Name: Bridget Lazcano RN Position: S RN Member Role: Primary Care Nurse Name: Lara Freeman Position: S RN Member Role: Primary Care Nurse Name: Iqra Ty RN Position: S RN Member Role: Primary Care Nurse Name: Cindy Michelle RN Position: S RN Member Role: Primary Care Nurse Name: Grace Diehl RN Position: S RN Member Role: Primary Care Nurse Name: Violet Wells NP Position: [facility] Associate Professional Member Role: Lifetime Consulting Provider Address: Address: [address] [place] [address] [address] [facility] [place], [place] - Name: Marv Lino MD Position: [facility] Renal MD Member Role: Lifetime Consulting Physician Address: Address: [address] [place] [address] [address] [facility] [place], [place] - Name: Peggy Perkins RN Position: S RN Member Role: Primary Care Nurse Name: Britney Jensen RN Position: S RN Member Role: Primary Care Nurse Name: Lourdes Malhotra RN Position: S RN Member Role: Primary Care Nurse Name: Steven Miller DO Position: [facility] Renal MD Member Role: Lifetime Consulting Physician Address: Address: [address] [place] [address] [address] [facility] [place] [place] - Name: Megan Rawls MD Position: Reference Physician Member Role: PCP Address: Address: [address] [place] [address] - Name: Krzysztof Aguiar RN Position: S RN Member Role: Primary Care Nurse Name: Kenisha Angeles RN Position: S RN Member Role: Primary Care Nurse Name: Laura Crowley Position: S RN Member Role: Primary Care Nurse Name: Boby Dominguez RN Position: S RN Member Role: Primary Care Nurse Care Team Related Persons Name: CURRY HOLGUIN Address: home [address], [place] Name: GERSON MATHIAS Address: home [address] [place] [address] [address] [place] [address]
--- OUTSIDE RECORDS SUMMARY | 2023-05-20 01:58 | XMS_ITS | Continuity of Care Document ---
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 Tech Name Role Phone Not on Staff, PCP Primary Care Physician Unavail able Encounter [facility] Date(s): 01/07/23 - 01/14/[address] [place] [address]- Attending Physician: Kathy Cabral MD Referring Physician: Not on Staff, Referring MD Allergies, Adverse Reactions, Alerts Substance Reaction Severity Status penicillin 1 rash Active 1Tolerated piptazo during admission december 2022 Immunizations Given and Recorded Vaccine Date Status Refusal Reason tetanus/diphtheria/pertussis, acel(Tdap) 04/20/10 Given Medications acetaminophen-HYDROcodone 325 mg-5 mg oral tablet 1-2 tablet, By Mouth, Every 6 hours, PRN for pain, August partial fill BS [id number], # 12 tablet, 0 Refills, Maintenance, 10/08/18 [...] 12/21/22 13:17:00 EDT, Route to Pharmacy Electronically, [facility], 160, cm, 12/21/22 4:05:00 EDT, [...] Active Calculus of right ureter Confirmed Active Vital Signs Most recent to oldest [Reference Range]: 1 Height 160 cm (01/07/23 3:14 PM) Pulse Rate [55-90 bpm] 100 bpm *H* (01/07/23 3:14 PM) Blood Pressure [90-138/55-84 mm Hg] 121/ 83mm Hg (01/07/23 3:14 PM) Temperature [96.8-100.4 DegF] 97.3 DegF (01/07/23 3:14 PM) Blood pressure sites Arm, left (01/07/23 3:14 PM) Temperature Route Temporal (01/07/23 3:14 PM) Social History Social History Type Response Smoking Status 10 or more cigarette s (1/2 pack or more)/day in last 30 days entered on: 12/16/22 Sex Patient Care team information Care Team Personnel Name: Mora Luis RN Position: [facility] RN Member Role: Primary Care Nurse Name: Lara Freeman Position: S RN Member Role: Primary Care Nurse Name: Grace Diehl RN Position: S RN Member Role: Primary Care Nurse Name: Violet Wells NP Position: [facility] Associate Professional Member Role: Lifetime Consulting Provider Address: Address: [address] [place] [address] [address] [facility] [place], [place] [address] Name: Marv Lino MD Position: [facility] Renal MD Member Role: Lifetime Consulting Physician Address: Address: [address] [place] [address] [address] [facility] [place], [place] [address] Name: Britney Jensen RN Position: [facility] RN Member Role: Primary Care Nurse Name: Krzysztof Aguiar RN Position: [facility] RN Member Role: Primary Care Nurse Name: Not on Staff, PCP Position: [facility] Physician (General Medicine) Member Role: PCP Care Team Related Persons Name: CURRY HOLGUIN Address: home [address] [place] [address] Name: GERSON MATHIAS Address: home [address] [place] [address] [address] [place] [address]
--- OUTSIDE RECORDS SUMMARY | 2023-05-20 01:58 | XMS_ITS | Continuity of Care Document ---
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 Phone Not on Staff, PCP Primary Care Physician Unavail able Encounter 12/22/22 - 02/13/23 [facility] Visiting Nurse [facility] [address] [place] [address]- Discharge Disposition: CLIENT NO LONGER REQUIRES SKILLED CARE Allergies, Adverse Reactions, Alerts Substance Reaction Severity Status amoxicillin hives,rash,itching Moderate Active penicillin 1 rash Active 1Tolerated piptazo during admission december 2022 Immunizations Given and Recorded Vaccine Date Status Refusal Reason influenza virus vaccine, inactivated 01/25/23 Give n tetanus/diphtheria/pertussis, acel(Tdap) 04/20/10 Given Medications pantoprazole 40 mg oral delayed release tablet [...] Care Nurse Name: Grace Diehl RN Position: [facility] RN Member Role: Primary Care Nurse Name: Violet Wells NP Position: [facility] Associate Professional Member Role: Lifetime Consulting Provider Address: Address: [address] [place] [address] [address] [facility] [place] [place] [address]- Name: Marv Lino MD Position: [facility] Renal MD Member Role: Lifetime Consulting Physician Address: Address: [address] [place], [place] [address] [place] [place] [address]- Name: Britney Jensen RN Position: S RN Member Role: Primary Care Nurse Name: Krzysztof Aguiar RN Position: [facility] RN Member Role: Primary Care Nurse Name: Not on Staff, PCP Position: [facility] Physician (General Medicine) Member Role: PCP Care Team Related Persons Name: CURRY HOLGUIN Address: home [address] [place] [address] Name: GERSON MATHIAS Address: [address] [place] [address]
--- OUTSIDE RECORDS SUMMARY | 2023-05-20 01:58 | XMS_ITS | Continuity of Care Document ---
Author Name Unknown Organization [facility] As [facility] Address [address] [place] [address] [address] [place] [address]- Care Team Providers Care Regional Production Manager Name Role Phone Not on Staff, PCP Primary Care Physician Unavail able Encounter [facility] Date(s): 01/07/23 - 02/06/[address] [place] [address]- Attending Physician: Manoj Peñaloza Admitting Physician: AdmtrManoj Referring Physician: Admtr, Manoj Allergies, Adverse Reactions, Alerts Substance Reaction Severity [...] Team Personnel Name: Mora Luis RN Position: [facility] RN Member Role: Primary Care Nurse Name: Lara Freeman Position: S RN Member Role: Primary Care Nurse Name: Grace Diehl RN Position: S RN Member Role: Primary Care Nurse Name: Violet Wells NP Position: [facility] Associate Professional Member Role: Lifetime Consulting Provider Address: Address: [address] [place] [address] [address] [facility] [place] [address]- Name: Marv Lino MD Position: [facility] Renal MD Member Role: Lifetime Consulting Physician Address: Address: [address] [place] [address] [address] [facility] [place], [place] [address] Name: Britney Jensen RN Position: [facility] RN Member Role: Primary Care Nurse Name: Krzysztof Aguiar RN Position: [facility] RN Member Role: Primary Care Nurse Name: Not on Staff, PCP Position: [facility] Physician (General Medicine) Member Role: PCP Care Team Related Persons Name: CURRY HOLGUIN Address: home [address] [place] [address] Name: GERSON MATHIAS Address: home [address] [place] [address] [address] [place] [address]
--- OUTSIDE RECORDS SUMMARY | 2023-05-20 01:58 | XMS_ITS | Continuity of Care Document ---
Author Name Unknown Organization [facility] As [facility] Address [address] [place] [address] [address] [place] [address]- Care Team Providers Care Manager Call Name Role Phone Not on Staff, PCP Primary Care Physician Unavail able Encounter [facility] Date(s): 01/17/23 - 02/16/[address] [place] [address]- Allergies, Adverse Reactions, Alerts Substance Reaction Severity [...] Team Personnel Name: Mora Luis RN Position: [facility] RN Member Role: Primary Care Nurse Name: Lara Freeman Position: [facility] RN Member Role: Primary Care Nurse Name: Grace Diehl RN Position: [facility] RN Member Role: Primary Care Nurse Name: Violet Wells NP Position: [facility] Associate Professional Member Role: Lifetime Consulting Provider Address: Address: [address] [place] [address] [address] [facility] [place] [address]- Name: Marv Lino MD Position: [facility] Renal MD Member Role: Lifetime Consulting Physician Address: Address: [address] [place] [address] [address] [facility] [place] [address]- Name: Britney Jensen RN Position: [facility] RN Member Role: Primary Care Nurse Name: Krzysztof Aguiar RN Position: [facility] RN Member Role: Primary Care Nurse Name: Not on Staff, PCP Position: [facility] Physician (General Medicine) Member Role: PCP Care Team Related Persons Name: CURRY HOLGUIN Address: home [address] [place] [address] Name: GERSON MATHIAS Address: [address] [place] [id number]
--- OUTSIDE RECORDS SUMMARY | 2023-05-20 01:58 | XMS_ITS | Continuity of Care Document ---
Author Name Unknown Organization [facility] As [facility] Address [address] [place] [address] [address] [place] [address]- Care Team Providers Care Dental Assisting Instructor Name Role Phone Not on Staff, PCP Primary Care Physician Unavail able Encounter [facility] Date(s): 12/30/22 - 01/29/[address] [place] [address]- Allergies, Adverse Reactions, Alerts Substance Reaction Severity [...] 01/30/23 13:52:00 EDT, 01/25/23 13:52:00 EDT, Capsule, [facility], Partial fill upon patient request if the prescription is for a schedule II opioid... Start Date: 01/25/23 Stop Date: 01/30/23 Status: Ordered pantoprazole 40 mg oral delayed [...] Care Nurse Name: Violet Wells NP Position: [facility] Associate Professional Member Role: Lifetime Consulting Provider Address: Address: [address] [place] [address] [facility] [address] Name: Marv Lino MD Position: [facility] Renal MD Member Role: Lifetime Consulting Physician Address: Address: [address] [place] [address] [facility] [address] Name: Britney Jensen RN Position: S RN Member Role: Primary Care Nurse Name: Krzysztof Aguiar RN Position: S RN Member Role: Primary Care Nurse Name: Not on Staff, PCP Position: [facility] Physician (General Medicine) Member Role: PCP Care Team Related Persons Name: CURRY HOLGUIN Address: home [address] [place] [address] Name: GERSON MATHIAS Address: home [address] [place] [address] [place] [id number]
--- OUTSIDE RECORDS SUMMARY | 2023-05-20 01:58 | XMS_ITS | Continuity of Care Document ---
Author Name Unknown Organization [facility] ter Address [address] [place] [address]- Care Team Providers Care Dredge Lever Operator Name Role Phone Not on Staff, PCP Primary Care Physician Unavail able Encounter [facility] Date(s): 04/22/23 - 04/23/[address] [address]- Discharge Disposition: A-D/C AMA Attending Physician: Stan Montelongo MD Admitting Physician: Stan Montelongo MD Referring Physician: Not on Staff, Referring [...] Results Orders for Microbiology Reports Name Date Blood Culture 04/22/23 Blood Culture #2 04/22/23 Microbiology Reports TEST:Blood Culture STATUS:Unauthenticated BODY SITE: SOURCE:Blood COLLECTED DATE/TIME:04/22/23 8:46 PM Blood Culture SPECIMEN DESCRIPTION : BLOOD NO SITE SPECIAL REQUESTS : NONE CULTURE : NO GROWTH AFTER 24 HOURS REPORT STATUS : PRELIMINARY REPORT TEST:Blood Culture, Second Order STATUS:Unauthenticated BODY SITE: SOURCE:Blood COLLECTED DATE/TIME:04/22/23 8:46 PM Blood Culture, Second Order SPECIMEN DESCRIPTION : BLOOD NO SITE SPECIAL REQUESTS : NONE CULTURE : NO GROWTH AFTER 24 HOURS REPORT STATUS : PRELIMINARY REPORT Vital Signs Most recent to oldest [Reference Range]: 1 2 3 Height 158 cm (04/22/23 8:36 PM) 158 cm (04/22/23 8:12 PM) 158 cm (04/22/23 7:43 PM) Oxygen Saturation [94-100 %] 99 % (04/23/23 12:38 AM) 98 % (04/22/23 8:12 PM) 99 % (04/22/23 7:43 PM) Pulse Rate [55-90 bpm] 139 bpm *H* (04/23/23 12:38 AM) 144 bpm *H* (04/22/23 8:12 PM) 149 bpm *H* (04/22/23 7:43 PM) Blood Pressure [90-138/55-84 mm Hg] 131/96mm Hg (04/23/23 12:38 AM) 117/86mm Hg (04/22/23 7:43 PM) Respiratory Rate [16-30 br/min] 20 br/min (04/22/23 7:43 PM) Temperature [96.8-100.4 DegF] 98.0 DegF (04/23/23 12:38 AM) 99.4 DegF (04/22/23 7:43 PM) Mode of Delivery (Oxygen) Room air (04/22/23 7:43 PM) Blood pressure sites Arm, right (04/23/23 12:38 AM) Arm, right (04/22/23 7:43 PM) Temperature Route Oral (04/23/23 12:38 AM) Oral (04/22/23 7:43 PM) Dry Weight 86 kg (04/22/23 8:36 PM) 86 kg (04/22/23 8:12 PM) 86 kg (04/22/23 7:43 PM) Dry Weight Obtained Via Standing scale (04/22/23 7:43 PM) Social History Social History Type Response Smoking Status 10 or more cigarette s (1/2 pack or more)/day in last 30 days entered on: 12/16/22 Sex EKG study * Event Display: EKG Authored Date: * Event Display: ECG 12-Lead Authored Date: Please click on pdf link to open report * Event Display: ECG 12-Lead Authored Date: Ventricular Rate: 137 BPM Atrial Rate: 137 BPM P-R Interval: 128 ms QRS Duration: 66 ms Q-T Interval: 258 ms QTC Calculation(Bazett): 389 ms P Vulcan: 64 degrees R Vulcan: 77 degrees T Vulcan: 21 degrees Sinus tachycardia Otherwise normal ECG When compared with ECG of 25-JAN-2023 12:05, Ventricular rate has increased Confirmed by BRODY CARRENO ([id number]) on 04/23/2023 3:33:47 PM [place]: BRODY CARRENO Patient Care team information Care Team Personnel Name: Mora Luis RN Position: [facility] RN Member Role: Primary Care Nurse Name: Bridget Lazcano RN Position: [facility] RN Member Role: Primary Care Nurse Name: Lara Freeman Position: [facility] RN Member Role: Primary Care Nurse Name: Grace Diehl RN Position: [facility] RN Member Role: Primary Care Nurse Name: Violet Wells NP Position: [facility] Associate Professional Member Role: Lifetime Consulting Provider Address: Address: [address] [place], [place] [address] [address] Name: Marv Lino MD Position: [facility] Renal MD Member Role: Lifetime Consulting Physician Address: Address: [address] [place], [place] [address] [address] Name: Peggy Perkins RN Position: S RN Member Role: Primary Care Nurse Name: Britney Jensen RN Position: [facility] RN Member Role: Primary Care Nurse Name: Krzysztof Aguiar RN Position: S RN Member Role: Primary Care Nurse Name: Not on Staff, PCP Position: [facility] Physician (General Medicine) Member Role: PCP Name: Laura Crowley Position: S RN Member Role: Primary Care Nurse Care Team Related Persons Name: CURRY HOLGUIN Address: home [address] [place] [address] Name: GERSON MATHIAS Address: home [address] [place] [address] [address] [place] [address]
--- OUTSIDE RECORDS SUMMARY | 2023-05-20 01:58 | XMS_ITS | Continuity of Care Document ---
Author Name Unknown Organization [facility] ter Address [address] [place] [address]- Care Team Providers Care Foam Charger Name Role Phone Not on Staff, PCP Primary Care Physician Unavail able Encounter [facility] Date(s): 02/06/23 - 03/07/[address] [address]- Attending Physician: Marv Lino MD Admitting Physician: Marv Lino MD Referring Physician: Marv Lino MD Allergies, Adverse Reactions, Alerts Substance Reaction [...] Care Nurse Name: Violet Wells NP Position: [facility] Associate Professional Member Role: Lifetime Consulting Provider Address: Address: [address] [place] [address] [address] [facility] [place], [place] [address] Name: Marv Lino MD Position: [facility] Renal MD Member Role: Lifetime Consulting Physician Address: Address: [address] [place] [address] [address] [facility] [place], [place] [address] Name: Britney Jensen RN Position: S RN Member Role: Primary Care Nurse Name: Krzysztof Aguiar RN Position: [facility] RN Member Role: Primary Care Nurse Name: Not on Staff, PCP Position: [facility] Physician (General Medicine) Member Role: PCP Care Team Related Persons Name: CURRY HOLGUIN Address: [address] [place] [address] Name: GERSON MATHIAS Address: home [address] [place] [address] [address] [place] [address]
== END 2023-05-20 02:09 | disposition left against medical advice (07) ==
PROVIDERS: Emergency Provider Emergency Medicine
DX: M79.643 Pain in unspecified hand (principal); M25.561 Pain in right knee; M25.511 Pain in right shoulder
CPT/HCPCS: 73030; 73110; 73130; 73564; 99281; 99283